=== PATIENT | male | born 1960 | race Hispanic/Latino ===

== ENCOUNTER 2019-08-04 12:20 | Inpatient (IN) | payer MEDICARE ==
[2019-08-04] MEDS ORDERED: DEXTROSE 50% IN WATER (25GM) 50 ML SYRINGE IV ONE (12:42)
[2019-08-04] MEDS ORDERED: SODIUM CHLORIDE 0.9% 1000 ML 1,000 ML IV ONE ×3 (12:42→13:56)
[2019-08-04] MEDS ORDERED: LORazepam 2 MG/ML VIAL IV ONE ×2 (12:44→16:00)
--- NOTE | 2019-08-04 12:47 | Emergency Department Report ---
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 Patient brought to the emergency room from [facility] for evaluation of altered mental status decrease p.o. intake for the last 4 days. Facility staff reported that patient stopped eating and drinking since he got to the facility on Friday, 3 days ago. Patient is alert but not answering any questions. Patient with significant dry mucous membrane. Patient also found to be tachycardic but afebrile. I spoke to patient Ms. Radha Desouza. Her number is [phone]. She informed me that her has been diagnosed with schizoaffective disorder and he has been very depressed recently. She told me that he followed by Dr. Ordaz, psychiatrist. Her number is [phone]. She stated that he is allergic to Haldol and its family because it is because him to have malignant neuroleptic syndrome. She told me that he almost last time when they gave him this medication. She told me that he is on Trileptal and Abilify. She requested the patient to be transferred to [facility] after he is medically clear. - Related Data Allergies Allergy/AdvReac Type Severity Reaction Status Date / Time haloperidol [From Haldol] Allergy Unknown Verified 08/04/19 14:27 ED Review of Systems ROS: Stated complaint: AMS Other details as noted in HPI Comment: Unobtainable due to pts medical conditions ED Physical Exam - General General appearance: alert, in no apparent distress, anxious - Head Head exam: Present: atraumatic, normocephalic, normal inspection - Eye Eye exam: Present: normal appearance - ENT ENT exam: Present: mucous membranes dry - Neck Neck exam: Present: normal inspection, full ROM. Absent: tenderness, meningismus, lymphadenopathy, thyromegaly - Respiratory Respiratory exam: Present: normal lung sounds bilaterally - Cardiovascular Cardiovascular Exam: Present: tachycardia - GI/Abdominal GI/Abdominal exam: Present: soft, normal bowel sounds. Absent: distended, tenderness, guarding, rebound, rigid, organomegaly, mass, bruit, pulsatile mass, hernia - Extremities Exam Extremities exam: Present: normal inspection, full ROM, normal capillary refill. Absent: pedal edema, calf tenderness - Back Exam Back exam: Present: normal inspection, full ROM. 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 Patient brought to the emergency room from [facility] for evaluation of altered mental status decrease p.o. intake for the last 4 days. Facility staff reported that patient stopped eating and drinking since he got to the facility on Friday, 3 days ago. Patient is alert but not answering any questions. Patient with significant dry mucous membrane. Patient also found to be tachycardic but afebrile. Patient was really agitated and kept pulling his lines, patient given 2 mg of IV Ativan for sedation. Two IV lines inserted and patient started on normal saline and D5 normal saline. Patient found to have a blood glucose of 50, patient given dextrose 50 once. Labs reviewed and showed hyponatremia, hyperchloremia, elevated BUN, elevated lactic acid and significantly high CK of more than 9000. Chest x-ray is unremarkable. I discussed the patient with Dr. Harvey, he agreed to admit the patient to medical service for further management. Critical Care Time: Yes Critical care time in (mins) excluding proc time.: 30 Critical care attestation.: If time is entered above; I have spent that time in minutes in the direct care of this critically ill patient, excluding procedure time. ED Disposition Clinical Impression: Altered mental status, Hypoglycemia, Rhabdomyolysis, Hypernatremia, Schizoaffective disorder Disposition: OP ADMIT IP TO THIS HOSP Is pt being admited?: Yes Condition: Stable Referrals: PRIMARY CARE, [Primary Care Provider] - 3-5 Days
[2019-08-04 13:19] LABS: Basophils # (Auto) 0.1 K/mm3 (0.0-0.1); Basophils % (Auto) 0.5 % (0.0-1.8); Hematocrit 48.6 % (35.5-45.6); Hemoglobin 16.3 gm/dl (11.8-15.2); Lymphocytes # (Auto) 0.8 K/mm3 (1.2-5.4); Lymphocytes % (Auto) 5.4 % (13.4-35.0); Mean Corpuscular HGB Conc 34 % (32-34); Mean Corpuscular Volume 89 fl (84-94); Monocytes # (Auto) 1.3 K/mm3 (0.0-0.8); Monocytes % (Auto) 8.3 % (0.0-7.3); Platelet Count 315 K/mm3 (140-440); Red Blood Count 5.43 M/mm3 (3.65-5.03); Red Cell Distribution Width 14.2 % (13.2-15.2)
[2019-08-04 13:28] LABS: INR 1.14 (0.87-1.13)
[2019-08-04 13:29] LABS: Partial Thromboplastin Time 24.9 Sec. (24.2-36.6)
--- NOTE | 2019-08-04 13:38 | XRay Report ---
CHEST 1 VIEW 08/04/2019 1:15 PM INDICATION / CLINICAL INFORMATION: Altered Mental Status. COMPARISON: None available. FINDINGS: SUPPORT DEVICES: None. HEART / MEDIASTINUM: No significant abnormality. LUNGS / PLEURA: No significant pulmonary or pleural abnormality. No pneumothorax. ADDITIONAL FINDINGS: No significant additional findings. IMPRESSION: 1. No acute abnormality of the chest. Signer Name: Efrain Root MD Signed: 08/04/2019 1:33 PM Workstation Name: [id number]
[2019-08-04 13:51] LABS: Alanine Aminotransferase 321 units/L (7-56); Albumin 4.3 g/dL (3.9-5); BUN/Creatinine Ratio 40; Bilirubin,Direct 1.3 mg/dL (0-0.2); Blood Urea Nitrogen 52 mg/dL (9-20); Calcium 9.7 mg/dL (8.4-10.2); Hemolysis Index 14
[2019-08-04] MEDS ORDERED: LORazepam 2 MG/ML VIAL ONE (16:07)
[2019-08-04 16:12] LABS: Bacteria,Urine 1+ /HPF (Negative); Bilirubin,Urine NEG (Negative); Blood,Urine LG (Negative); Color,Urine Amber (Yellow); Mucus,Urine FEW /HPF
[2019-08-04 16:17] LABS: Amphetamine Screen,Urine PRESUMPTIVE NEGATIVE; Benzodiazepines Screen,Urine PRESUMPTIVE NEGATIVE; Cocaine Screen,Urine PRESUMPTIVE NEGATIVE; Methadone Screen,Urine PRESUMPTIVE NEGATIVE; Opiate Screen,Urine PRESUMPTIVE NEGATIVE
[2019-08-04 16:35] LABS: Cannabinoid Screen,Urine PRESUMPTIVE NEGATIVE
--- NOTE | 2019-08-04 16:42 | Cat Scan Report ---
CT BRAIN: 08/04/2019 INDICATION / CLINICAL INFORMATION: MAIN: Altered Mental Status Best images possible . COMPARISON: None available. FINDINGS: BRAIN/INTRACRANIAL STRUCTURES: Unenhanced CT images of the brain demonstrate no evidence of acute int racranial abnormality. Ventricles and sulci are within normal limits of size and shape for a patient of this age. There is no evidence of acute ischemic injury, hemorrhage, or mass. There are no abnormal extra-axial fluid collections. EXTRACRANIAL STRUCTURES: Unremarkable. IMPRESSION: No acute abnormality. All CT scans at this location are performed using dose reduction to ALARA by means of automated expos ure control. Signer Name: Presley Anderson MD Signed: 08/04/2019 4:38 PM Workstation Name: [id number]
[2019-08-04] MEDS ORDERED: SODIUM CHLORIDE 0.9% 1000 ML 1,000 ML ONE (18:37)
[2019-08-04] MEDS: D5W/0.9% NACL 1,000 ML IV SCH (20:55)
--- NOTE | 2019-08-04 23:27 | History and Physical Report ---
History of Present Illness Date of examination: 08/04/19 Date of admission: 08/04/19 15:00 Chief complaint: Decreased PO intake for 4 days Altered mental service History of present illness: 58 years old male with history of schizophrenia -- catatonic type brought to the emergency room from [facility] for evaluation of altered mental status decrease p.o. intake for the last 4 days. Facility staff reported that patient stopped eating and drinking since he got to the facility on Friday, 3 days ago. Patient is alert but not answering any questions. Patient with significant dry mucous membrane. Patient also found to be tachycardic but afeb rile. Ms. Radha Desouza -- Her number is [phone]---rrpa patient has been diagnosed with schizoaffective disorder and he has been very depressed recently. Apparently he is allergic to Haldol and causes malignant neuroleptic syndrome. She told me that he almost last time when they gave him this medication. She told me that he is on Trileptal and Abilify. She requested the patient to be transferred to [facility] after he is medically clear. Past History Past Medical History: hypertension, other (Schizoaffective disorder and Catatonia) Past Surgical History: No surgical history Social history: lives with family, full code Family history: hypertension Medications and Allergies Allergies Allergy/AdvReac Type Severity Reaction Status Date / Time haloperidol [From Haldol] Allergy Unknown Verified 08/04/19 14:27 Home Medications Medication Instructions Recorded Confirmed Last Taken Type Acetaminophen [Tylenol] 325 mg PO Q4HR PRN 08/04/19 08/04/19 Unknown History Amlodipine Besylate [Norvasc] 5 mg PO DAILY 08/04/19 08/04/19 Unknown History Antacid [Alum-Mag Hydrox-Simeth 30 ml PO Q8H PRN 08/04/19 08/04/19 Unknown History [id number]/5Ml] Benztropine [Cogentin] 1 tab PO DAILY 08/04/19 08/04/19 Unknown History Divalproex [Naedem THOMPSON] 1,000 mg PO HS 08/04/19 08/04/19 Unknown History Magnesium Hydroxide [Milk of 30 ml PO Q8H PRN 08/04/19 08/05/19 Unknown History Magnesia] OLANZapine [Zyprexa] 15 mg PO HS 08/04/19 08/05/19 Unknown History OLANzapine [ZyPREXA] 5 mg PO QDAY 08/04/19 08/05/19 Unknown History OXcarbazepine [Trileptal] 300 mg PO BID 08/04/19 08/04/19 Unknown History Ziprasidone Mesylate [Geodon] 20 mg IM Q12H PRN 08/04/19 08/04/19 Unknown History Zyprexa 5 mg IM BID PRN 08/04/19 08/05/19 Unknown History diphenhydrAMINE [Benadryl CAP] 50 mg PO Q4HR PRN 08/04/19 08/04/19 Unknown History diphenhydrAMINE [Benadryl] 50 mg IV ONCE PRN 08/04/19 08/04/19 Unknown History fluPHENAZine HCl [Prolixin HCl] 5 mg IM Q4H PRN 08/04/19 08/04/19 Unknown History fluPHENAZine HCl [Prolixin] 5 mg PO Q4HR PRN 08/04/19 08/04/19 Unknown History traZODone [Desyrel] 100 mg PO QHS 08/04/19 08/04/19 Unknown History Active Meds: Active Medications Dextrose/Sodium Chloride (D5ns) 1,000 mls @ 150 mls/hr IV DIRECT EVELIA Last Admin: 08/04/19 20:55 Dose: 150 mls/hr Documented by: Review of Systems All systems: negative Exam - Constitutional Vitals: Temp Pulse Resp BP Pulse Ox 98.8 F 113 H 22 161/68 98 08/04/19 17:45 08/04/19 18:16 08/04/19 18:16 08/04/19 18:16 08/04/19 18:16 General appearance: Present: no acute distress, well-nourished - EENT Eyes: Present: PERRL ENT: hearing intact, clear oral mucosa, other (Dry mucous membranes) - Neck Neck: Present: supple, normal ROM - Respiratory Respiratory effort: normal Respiratory: bilateral: CTA - Cardiovascular Heart rate: 78 Rhythm: regular Heart Sounds: Present: S1 & S2. Absent: rub, click - Extremities Extremities: no ischemia, pulses intact, pulses symmetrical, No edema Peripheral Pulses: within normal limits - Abdominal General gastrointestinal: Present: soft, non-tender, non-distended, normal bowel sounds Male genitourinary: Present: normal - Integumentary Integumentary: Present: clear, warm, dry - Musculoskeletal Musculoskeletal: strength equal bilaterally, generalized weakness - Psychiatric Psychiatric: depressed, other (Lethargic,Catatonic) - Neurologic Neurologic: CNII-XII intact, moves all extremities - Allied Health Allied health notes reviewed: nursing, social work, case management Results - Labs CBC & Chem 7: 08/05/19 03:33 08/05/19 03:33 Labs: Laboratory Last Values WBC 15.2 K/mm3 (4.5-11.0) H 08/04/19 13:03 RBC 5.43 M/mm3 (3.65-5.03) H 08/04/19 13:03 Hgb 16.3 gm/dl (11.8-15.2) H 08/04/19 13:03 Hct 48.6 % (35.5-45.6) H 08/04/19 13:03 MCV 89 fl (84-94) 08/04/19 13:03 MCH 30 pg (28-32) 08/04/19 13:03 MCHC 34 % (32-34) 08/04/19 13:03 RDW 14.2 % (13.2-15.2) 08/04/19 13:03 Plt Count 315 K/mm3 (140-440) 08/04/19 13:03 Lymph % (Auto) 5.4 % (13.4-35.0) L 08/04/19 13:03 [place] % (Auto) 8.3 % (0.0-7.3) H 08/04/19 13:03 Eos % (Auto) 0.0 % (0.0-4.3) 08/04/19 13:03 Baso % (Auto) 0.5 % (0.0-1.8) 08/04/19 13:03 Lymph # 0.8 K/mm3 (1.2-5.4) L 08/04/19 13:03 [place] # 1.3 K/mm3 (0.0-0.8) H 08/04/19 13:03 Eos # 0.0 K/mm3 (0.0-0.4) 08/04/19 13:03 Baso # 0.1 K/mm3 (0.0-0.1) 08/04/19 13:03 Seg Neutrophils % 85.8 % (40.0-70.0) H 08/04/19 13:03 Seg Neutrophils # 13.0 K/mm3 (1.8-7.7) H 08/04/19 13:03 PT 14.7 Sec. (12.2-14.9) 08/04/19 13:03 INR 1.14 (0.87-1.13) H 08/04/19 13:03 APTT 24.9 Sec. (24.2-36.6) 08/04/19 13:03 Sodium 151 mmol/L (137-145) H 08/04/19 13:03 Potassium 4.7 mmol/L (3.6-5.0) 08/04/19 13:03 Chloride 110.2 mmol/L (98-107) H 08/04/19 13:03 Carbon Dioxide 22 mmol/L (22-30) 08/04/19 13:03 Anion Gap 24 mmol/L 08/04/19 13:03 BUN 52 mg/dL (9-20) H 08/04/19 13:03 Creatinine 1.3 mg/dL (0.8-1.5) 08/04/19 13:03 Estimated GFR 57 ml/min 08/04/19 13:03 BUN/Creatinine Ratio 40 % 08/04/19 13:03 Glucose 112 mg/dL (75-100) H 08/04/19 13:03 POC Glucose 58 (70-105) L 08/04/19 12:42 Lactic Acid 1.70 mmol/L (0.7-2.0) 08/04/19 15:46 Calcium 9.7 mg/dL (8.4-10.2) 08/04/19 13:03 Total Bilirubin 2.40 mg/dL (0.1-1.2) H 08/04/19 13:03 Direct Bilirubin 1.3 mg/dL (0-0.2) H 08/04/19 13:03 Indirect Bilirubin 1.1 mg/dL 08/04/19 13:03 AST 307 units/L (5-40) H 08/04/19 13:03 ALT 321 units/L (7-56) H 08/04/19 13:03 Alkaline Phosphatase 104 units/L (35-129) 08/04/19 13:03 Ammonia 44.0 umol/L (25-60) 08/04/19 13:03 Total Creatine Kinase 9068 units/L (55-170) H 08/04/19 13:03 Troponin T < 0.010 ng/mL (0.00-0.029) 08/04/19 13:03 Troponin T < 0.010 ng/mL (0.00-0.029) 08/04/19 13:03 Total Protein 7.2 g/dL (6.3-8.2) 08/04/19 13:03 Albumin 4.3 g/dL (3.9-5) 08/04/19 13:03 Albumin/Globulin Ratio 1.5 % 08/04/19 13:03 TSH 1.630 mlU/mL (0.270-4.200) 08/04/19 13:03 Urine Color Jewels (Yellow) 08/04/19 15:43 Urine Turbidity Clear (Clear) 08/04/19 15:43 Urine pH 5.0 (5.0-7.0) 08/04/19 15:43 Ur Specific [place] 1.025 (1.003-1.030) 08/04/19 15:43 Urine Protein 30 mg/dl mg/dL (Negative) 08/04/19 15:43 Urine Glucose (UA) 50 mg/dL (Negative) 08/04/19 15:43 Urine Ketones 20 mg/dL (Negative) 08/04/19 15:43 Urine Blood Lg (Negative) 08/04/19 15:43 Urine Nitrite Neg (Negative) 08/04/19 15:43 Urine Bilirubin Neg (Negative) 08/04/19 15:43 Urine Urobilinogen 4.0 mg/dL (<2.0) 08/04/19 15:43 Ur Leukocyte Esterase Neg (Negative) 08/04/19 15:43 Urine WBC (Auto) 1.0 /HPF (0.0-6.0) 08/04/19 15:43 Urine RBC (Auto) 2.0 /HPF (0.0-6.0) 08/04/19 15:43 U Epithel Cells (Auto) < 1.0 /HPF (0-13.0) 08/04/19 15:43 Urine Bacteria (Auto) 1+ /HPF (Negative) 08/04/19 15:43 Urine Mucus Few /HPF 08/04/19 15:43 Salicylates < 0.3 mg/dL (2.8-20.0) L 08/04/19 13:03 Urine Opiates Screen Presumptive negative 08/04/19 15:43 Urine Methadone Screen Presumptive negative 08/04/19 15:43 Acetaminophen < 5.0 ug/mL (10.0-30.0) L 08/04/19 13:03 Ur Barbiturates Screen Presumptive negative 08/04/19 15:43 Ur Phencyclidine Scrn Presumptive negative 08/04/19 15:43 Ur Amphetamines Screen Presumptive negative 08/04/19 15:43 U Benzodiazepines Scrn Presumptive negative 08/04/19 15:43 Urine Cocaine Screen Presumptive negative 08/04/19 15:43 U Marijuana (THC) Screen Presumptive negative 08/04/19 15:43 Drugs of Abuse Note Disclamer 08/04/19 15:43 Short CBC 08/04/19 Range/Units 13:03 WBC 15.2 H (4.5-11.0) K/mm3 Hgb 16.3 H (11.8-15.2) gm/dl Hct 48.6 H (35.5-45.6) % Plt Count 315 (140-440) K/mm3 BMP 08/04/19 13:03 Sodium 151 H Potassium 4.7 Chloride 110.2 H Carbon Dioxide 22 BUN 52 H Creatinine 1.3 Glucose 112 H Calcium 9.7 Cardiac Enzymes 08/04/19 08/04/19 Range/Units 13:03 13:03 Total Creatine Kinase 9068 H (55-170) units/L Troponin T < 0.010 < 0.010 (0.00-0.029) ng/mL Liver Function 08/04/19 Range/Units 13:03 Total Bilirubin 2.40 H (0.1-1.2) mg/dL Direct Bilirubin 1.3 H (0-0.2) mg/dL AST 307 H (5-40) units/L ALT 321 H (7-56) units/L Alkaline Phosphatase 104 (35-129) units/L Albumin 4.3 (3.9-5) g/dL Urine 08/04/19 Range/Units 15:43 Urine Color Jewels (Yellow) Urine pH 5.0 (5.0-7.0) Ur Specific [place] 1.025 (1.003-1.030) Urine Protein 30 mg/dl (Negative) mg/dL Urine Glucose (UA) 50 (Negative) mg/dL Short CBC 08/04/19 08/05/19 Range/Units 13:03 03:33 WBC 15.2 H 8.3 (4.5-11.0) K/mm3 Hgb 16.3 H 14.4 (11.8-15.2) gm/dl Hct 48.6 H 42.8 (35.5-45.6) % Plt Count 315 247 (140-440) K/mm3 BMP 08/04/19 08/05/19 13:03 03:33 Sodium 151 H 155 H Potassium 4.7 4.4 Chloride 110.2 H 121.3 H Carbon Dioxide 22 23 BUN 52 H 38 H Creatinine 1.3 1.2 Glucose 112 H 128 H Calcium 9.7 8.4 Cardiac Enzymes 08/04/19 08/04/19 Range/Units 13:03 13:03 Total Creatine Kinase 9068 H (55-170) units/L Troponin T < 0.010 < 0.010 (0.00-0.029) ng/mL Liver Function 08/04/19 08/05/19 Range/Units 13:03 03:33 Total Bilirubin 2.40 H 1.60 H (0.1-1.2) mg/dL Direct Bilirubin 1.3 H (0-0.2) mg/dL AST 307 H 179 H (5-40) units/L ALT 321 H 232 H (7-56) units/L Alkaline Phosphatase 104 78 (35-129) units/L Albumin 4.3 3.1 L (3.9-5) g/dL Urine 08/04/19 Range/Units 15:43 Urine Color Jewels (Yellow) Urine pH 5.0 (5.0-7.0) Ur Specific [place] 1.025 (1.003-1.030) Urine Protein 30 mg/dl (Negative) mg/dL Urine Glucose (UA) 50 (Negative) mg/dL - Imaging and Cardiology EKG: report reviewed (A fib/flutter) Chest x-ray: report reviewed (NAF) CT scan - chest: report reviewed (NAF) Arana/IV: IV Catheter Type [Left INT / Saline Lock Antecubital] IV Catheter Type [Right INT / Saline Lock Antecubital] Assessment and Plan Advance Directives: Yes Plan of care discussed with patient/family: Yes - Patient Problems (1) Encephalopathy acute Current Visit: Yes Status: Acute Plan to address problem: Sec to dehydration and Hypernatremia IV fluids for now Psych consult (2) Hypernatremia Current Visit: Yes Status: Acute Plan to address problem: Half normal saline /D5w (3) Rhabdomyolysis Current Visit: Yes Status: Acute Qualifiers: Rhabdomyolysis type: non-traumatic Qualified Code(s): M62.82 - Rhabdomyolysis Plan to address problem: IV FLuids (4) HTN (hypertension) Current Visit: Yes Status: Chronic Qualifiers: Hypertension type: essential hypertension Qualified Code(s): I10 - Essential (primary) hypertension Plan to address problem: Cont antihypertensives (5) Schizoaffective disorder Current Visit: Yes Status: Chronic Qualifiers: Schizoaffective disorder type: depressive Qualified Code(s): F25.1 - Schizoaffective disorder, depressive type Plan to address problem: Cont Ablify (6) Transaminitis Current Visit: Yes Status: Acute Plan to address problem: Check Hepatitis profile Drug induced?? GB ultrasound (7) DVT prophylaxis Current Visit: Yes Status: Acute Plan to address problem: On Heparin and GI prophylaxis
[2019-08-04] MEDS ORDERED: ALUM-MAG HYDROXIDE-SIMETHICONE 200-200-20MG/5ML ORAL LIQD 30 ML PO PRN (23:32)
[2019-08-04] MEDS ORDERED: FLUPHENAZINE HCL 2.5 MG/ML IM PRN (23:32)
[2019-08-04] MEDS ORDERED: diphenhydrAMINE 50 MG/ML VIAL IV PRN (23:32)
[2019-08-04] MEDS ORDERED: MAGNESIUM HYDROXIDE (MOM) ORAL LIQD UDC PO PRN (23:32)
[2019-08-04] MEDS ORDERED: ACETAMINOPHEN 325 MG TAB PO PRN (23:41)
[2019-08-04] MEDS ORDERED: ONDANSETRON 4 MG/2 ML INJ IV PRN (23:41)
[2019-08-04] MEDS ORDERED: oxyCODONE /ACETAMINOPHEN 5-325MG TAB PO PRN (23:41)
[2019-08-04] MEDS ORDERED: HYDROmorphone 1 MG/1 ML INJ IV PRN (23:41)
[2019-08-05] MEDS: FAMOTIDINE 20 MG/2 ML INJ IV SCH ×3 (00:16→21:45)
[2019-08-05] MEDS: OXcarbazepine 300 MG TAB PO SCH ×3 (00:17→21:45)
[2019-08-05] MEDS: D5W/0.9% NACL 1,000 ML IV SCH ×4 (02:37→17:04)
[2019-08-05 04:34] LABS: Basophils % (Auto) 0.3 % (0.0-1.8); Hematocrit 42.8 % (35.5-45.6); Hemoglobin 14.4 gm/dl (11.8-15.2); Lymphocytes # (Auto) 0.9 K/mm3 (1.2-5.4); Lymphocytes % (Auto) 10.8 % (13.4-35.0); Mean Corpuscular HGB Conc 34 % (32-34); Mean Corpuscular Volume 89 fl (84-94); Monocytes # (Auto) 0.8 K/mm3 (0.0-0.8); Monocytes % (Auto) 9.3 % (0.0-7.3); Platelet Count 247 K/mm3 (140-440); Red Blood Count 4.81 M/mm3 (3.65-5.03); Red Cell Distribution Width 13.8 % (13.2-15.2)
[2019-08-05 04:46] LABS: Alanine Aminotransferase 232 units/L (7-56); Albumin 3.1 g/dL (3.9-5); BUN/Creatinine Ratio 32; Blood Urea Nitrogen 38 mg/dL (9-20); Calcium 8.4 mg/dL (8.4-10.2); Hemolysis Index 18
[2019-08-05] MEDS: amLODIPine 5 MG TAB PO SCH (09:46)
[2019-08-05] MEDS: BENZTROPINE 1 MG TAB PO SCH (09:48)
--- NOTE | 2019-08-05 12:05 | Consultation ---
History of Present Illness Consult date: 08/05/19 Consult reason: atrial fibrillation History of present illness: This is a 58-year old male who was transferred from [facility] with altered mental status. The patient is alert but is not communicating. There were no report of chest pain, unusual shortness of breath or palpitations. A cardiac consultation has been requested for abnormal ECG. An ECG done in the emergency department is read erroneous as atrial fibrillation by the computer. His ECG on manual review is normal sinus rhythm. There is no evidence of atrial fibrillation. Past History Past Medical History: hypertension, other (Schizoaffective disorder) Social history: lives with family, full code Family history: hypertension Medications and Allergies Allergies Allergy/AdvReac Type Severity Reaction Status Date / Time haloperidol [From Haldol] Allergy Unknown Verified 08/04/19 14:27 Home Medications Medication Instructions Recorded Confirmed Last Taken Type Acetaminophen [Tylenol] 325 mg PO Q4HR PRN 08/04/19 08/04/19 Unknown History Amlodipine Besylate [Norvasc] 5 mg PO DAILY 08/04/19 08/04/19 Unknown History Antacid [Alum-Mag Hydrox-Simeth 30 ml PO Q8H PRN 08/04/19 08/04/19 Unknown History [id number]/5Ml] Benztropine [Cogentin] 1 tab PO DAILY 08/04/19 08/04/19 Unknown History Divalproex [DepRodger THOMPSON] 1,000 mg PO HS 08/04/19 08/04/19 Unknown History Magnesium Hydroxide [Milk of 30 ml PO Q8H PRN 08/04/19 08/05/19 Unknown History Magnesia] OLANZapine [Zyprexa] 15 mg PO HS 08/04/19 08/05/19 Unknown History OLANzapine [ZyPREXA] 5 mg PO QDAY 08/04/19 08/05/19 Unknown History OXcarbazepine [Trileptal] 300 mg PO BID 08/04/19 08/04/19 Unknown History Ziprasidone Mesylate [Geodon] 20 mg IM Q12H PRN 08/04/19 08/04/19 Unknown History Zyprexa 5 mg IM BID PRN 08/04/19 08/05/19 Unknown History diphenhydrAMINE [Benadryl CAP] 50 mg PO Q4HR PRN 08/04/19 08/04/19 Unknown History diphenhydrAMINE [Benadryl] 50 mg IV ONCE PRN 08/04/19 08/04/19 Unknown History fluPHENAZine HCl [Prolixin HCl] 5 mg IM Q4H PRN 08/04/19 08/04/19 Unknown History fluPHENAZine HCl [Prolixin] 5 mg PO Q4HR PRN 08/04/19 08/04/19 Unknown History traZODone [Desyrel] 100 mg PO QHS 08/04/19 08/04/19 Unknown History Active Meds: Active Medications Acetaminophen (Tylenol) 650 mg PO Q4H PRN PRN Reason: Pain MILD(1-3)/Fever >100.5/ZAVALA Last Admin: 08/05/19 00:17 Dose: 650 mg Documented by: Al Hydrox/Mg Hydrox/Simethicone (Alum-Mag Hydrox-Simeth [phone]/5ml) 30 ml PO Q8H PRN PRN Reason: Indigestion Amlodipine Besylate (Amlodipine) 5 mg PO DAILY [facility] Last Admin: 08/05/19 09:46 Dose: 5 mg Documented by: Benztropine Mesylate (Cogentin) 1 mg PO DAILY [facility] Last Admin: 08/05/19 09:48 Dose: 1 mg Documented by: Diphenhydramine HCl (Benadryl) 50 mg IV ONCE PRN PRN Reason: severe eps or prevention Divalproex Sodium (Depakote Dr) 1,000 mg PO [facility] Famotidine (Pepcid) 10 mg IV BID [facility] Last Admin: 08/05/19 09:45 Dose: 10 mg Documented by: Fluphenazine HCl (Prolixin Hcl) 5 mg PO Q4H PRN PRN Reason: Agitation Last Admin: 08/05/19 09:45 Dose: 5 mg Documented by: Fluphenazine HCl (Prolixin Hcl) 5 mg IM Q4H PRN PRN Reason: Agitation Hydromorphone HCl (Dilaudid) 0.5 mg IV Q3H PRN PRN Reason: Pain , Severe (7-10) Dextrose/Sodium Chloride (D5ns) 1,000 mls @ 150 mls/hr IV DIRECT [facility] Last Admin: 08/05/19 09:44 Dose: 150 mls/hr Documented by: Sodium Chloride (Nacl 0.45% 1000 Ml) 1,000 mls @ 125 mls/hr IV DIRECT [facility] Magnesium Hydroxide (Milk Of Magnesia) 30 ml PO Q12H PRN PRN Reason: Constipation Olanzapine (Zyprexa) 5 mg PO QDAY [facility] Last Admin: 08/05/19 09:47 Dose: 5 mg Documented by: Olanzapine (Zyprexa) 15 mg PO QHS [facility] Last Admin: 08/05/19 00:53 Dose: 15 mg Documented by: Ondansetron HCl (Zofran) 4 mg IV Q8H PRN PRN Reason: Nausea And Vomiting Oxcarbazepine (Trileptal) 300 mg PO BID [facility] Last Admin: 08/05/19 09:46 Dose: 300 mg Documented by: Oxycodone/Acetaminophen (Percocet 5/325) 1 tab PO Q6H PRN PRN Reason: Pain, Moderate (4-6) Sodium Chloride (Sodium Chloride Flush Syringe 10 Ml) 10 ml IV BID [facility] Last Admin: 08/05/19 09:47 Dose: 10 ml Documented by: Sodium Chloride (Sodium Chloride Flush Syringe 10 Ml) 10 ml IV PRN PRN PRN Reason: LINE FLUSH Trazodone HCl (Desyrel) 100 mg PO QHS [facility] Ziprasidone (Geodon) 20 mg IM Q12H PRN PRN Reason: Agitation Physical Examination Vital Signs Temp Pulse Resp BP Pulse Ox 98.2 F 111 H 18 187/114 100 08/04/19 13:04 08/04/19 13:04 08/04/19 13:04 08/04/19 13:04 08/04/19 13:04 General appearance: no acute distress Cardiac: Positive: Reg Rate and Rhythm Results 08/05/19 03:33 08/05/19 03:33 Cardiac Enzymes 08/04/19 08/05/19 Range/Units 13:03 03:33 AST 307 H 179 H (5-40) units/L Coagulation 08/04/19 Range/Units 13:03 PT 14.7 (12.2-14.9) Sec. INR 1.14 H (0.87-1.13) APTT 24.9 (24.2-36.6) Sec. CBC 08/04/19 08/05/19 Range/Units 13:03 03:33 WBC 15.2 H 8.3 (4.5-11.0) K/mm3 RBC 5.43 H 4.81 (3.65-5.03) M/mm3 Hgb 16.3 H 14.4 (11.8-15.2) gm/dl Hct 48.6 H 42.8 (35.5-45.6) % Plt Count 315 247 (140-440) K/mm3 Lymph # 0.8 L 0.9 L (1.2-5.4) K/mm3 [place] # 1.3 H 0.8 (0.0-0.8) K/mm3 Eos # 0.0 0.0 (0.0-0.4) K/mm3 Baso # 0.1 0.0 (0.0-0.1) K/mm3 Comprehensive Metabolic Panel 08/04/19 08/05/19 Range/Units 13:03 03:33 Sodium 151 H 155 H (137-145) mmol/L Potassium 4.7 4.4 (3.6-5.0) mmol/L Chloride 110.2 H 121.3 H (98-107) mmol/L Carbon Dioxide 22 23 (22-30) mmol/L BUN 52 H 38 H (9-20) mg/dL Creatinine 1.3 1.2 (0.8-1.5) mg/dL Glucose 112 H 128 H (75-100) mg/dL Calcium 9.7 8.4 (8.4-10.2) mg/dL Direct Bilirubin 1.3 H (0-0.2) mg/dL Indirect Bilirubin 1.1 mg/dL AST 307 H 179 H (5-40) units/L ALT 321 H 232 H (7-56) units/L Alkaline Phosphatase 104 78 (35-129) units/L Total Protein 7.2 5.7 L D (6.3-8.2) g/dL Albumin 4.3 3.1 L (3.9-5) g/dL Assessment and Plan Altered mental status Fever Schizoaffective disorder There is no evidence of atrial fibrillation. An ECG done in the emergency department is read erroneous as atrial fibrillation by the computer. His ECG on manual review is normal sinus rhythm. Therefore we will sign off.
[2019-08-05] MEDS ORDERED: LORazepam 2 MG/ML VIAL IM STA (12:22)
--- NOTE | 2019-08-05 12:23 | Consultation ---
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 Patient brought to the emergency room from [facility] for evaluation of altered mental status decrease p.o. intake for the last 4 days. Facility staff reported that patient stopped eating and drinking since he got to the facility on Friday, 3 days ago. Patient is alert but not answering any questions. Patient with significant dry mucous membrane. Patient also found to be tachycardic but afebrile. I spoke to patient Ms. Radha Desouza. Her number is [phone]. She informed me that her has been diagnosed with schizoaffective disorder and he has been very depressed recently. She told me that he followed by Dr. Ordaz, psychiatrist. Her number is [phone]. She stated that he is allergic to Haldol and its family because it is because him to have malignant neuroleptic syndrome. She told me that he almost last time when they gave him this medication. She told me that he is on Trileptal and Abilify. She requested the patient to be transferred to [facility] after he is medically clear. Psych HPI Patient responded when asked his name, he said "my name is len" but refused to respond to further questioning. Patient later began to cry. PAST PSYCHIATRIC HISTORY: Diagnoses: Schizophrenia Suicide attempts or Self-harm behavior: Not assessable Prior psychiatric hospitalizations: yes Substance Abuse history: Not assessable Previous psychiatric medications tried: Trileptal and abilify Outpatient treatment: Not assessable PAST MEDICAL HISTORY: Not assessable Family Psychiatric History None reported or documented SOCIAL HISTORY Marital Status: (based off notes) Living Arrangements: With Employment Status: Unknown Access to guns/weapons: Not assessable Education: Not assessable History of Abuse: Not assessable Legal History: Not assessable REVIEW OF SYSTEMS ROS cannot be reliably obtained from the patient due to mental status MENTAL STATUS EXAMINATION General Appearance and Behavior: Age appropriate, good hygiene, wearing appropriate clothes, lying in bed, /poor eye contact Cooperation:Withdrawn, Isolative Psychomotor Behavior:unremarkable and within normal limits Mood: Not assessable Affect and affective range: flat Thought Process: Not assessable Thought Content: Not assessable Speech: Not assessable Intellectual Functioning: Not assessable Suicidal Ideation: Not assessable Homicidal Ideation: Not assessable Impulse Control: Not assessable Insight and Judgment: Not assessable Memory: Not assessable Attention: Divided attention intact and Divided attention impaired Orientation: Alert Assessment and Plan - Psychiatric problem (1) Schizophrenia with prominent negative symptoms Current Visit: Yes Status: Acute (2) Selective mutism Current Visit: Yes Status: Acute Plan Abilify 15 mg Qday, stop olazanpine. Lorazepam IM 2mg Sitter: deffer to primary Medical: Per primary Disposition: Acute inpatient psychiatric hospitalization recommended when medically cleared. FOLLOW UP: Will Follow The treatment plan, including medication benefits and side effects were discussed with the patient's sister. She verbalized understanding and agreement. Please call with any questions or concerns. Thank you for this consult. Medications and Allergies Allergies Allergy/AdvReac Type Severity Reaction Status Date / Time haloperidol [From Haldol] Allergy Unknown Verified 08/04/19 14:27 Home Medications Medication Instructions Recorded Confirmed Last Taken Type Acetaminophen [Tylenol] 325 mg PO Q4HR PRN 08/04/19 08/04/19 Unknown History Amlodipine Besylate [Norvasc] 5 mg PO DAILY 08/04/19 08/04/19 Unknown History Antacid [Alum-Mag Hydrox-Simeth 30 ml PO Q8H PRN 08/04/19 08/04/19 Unknown History [id number]/5Ml] Benztropine [Cogentin] 1 tab PO DAILY 08/04/19 08/04/19 Unknown History Divalproex [Nadeem THOMPSON] 1,000 mg PO HS 08/04/19 08/04/19 Unknown History Magnesium Hydroxide [Milk of 30 ml PO Q8H PRN 08/04/19 08/05/19 Unknown History Magnesia] OLANZapine [Zyprexa] 15 mg PO HS 08/04/19 08/05/19 Unknown History OLANzapine [ZyPREXA] 5 mg PO QDAY 08/04/19 08/05/19 Unknown History OXcarbazepine [Trileptal] 300 mg PO BID 08/04/19 08/04/19 Unknown History Ziprasidone Mesylate [Geodon] 20 mg IM Q12H PRN 08/04/19 08/04/19 Unknown History Zyprexa 5 mg IM BID PRN 08/04/19 08/05/19 Unknown History diphenhydrAMINE [Benadryl CAP] 50 mg PO Q4HR PRN 08/04/19 08/04/19 Unknown History diphenhydrAMINE [Benadryl] 50 mg IV ONCE PRN 08/04/19 08/04/19 Unknown History fluPHENAZine HCl [Prolixin HCl] 5 mg IM Q4H PRN 08/04/19 08/04/19 Unknown History fluPHENAZine HCl [Prolixin] 5 mg PO Q4HR PRN 08/04/19 08/04/19 Unknown History traZODone [Desyrel] 100 mg PO QHS 08/04/19 08/04/19 Unknown History Active Meds: Active Medications Acetaminophen (Tylenol) 650 mg PO Q4H PRN PRN Reason: Pain MILD(1-3)/Fever >100.5/ZAVALA Last Admin: 08/05/19 00:17 Dose: 650 mg Documented by: Al Hydrox/Mg Hydrox/Simethicone (Alum-Mag Hydrox-Simeth [id number]/5ml) 30 ml PO Q8H PRN PRN Reason: Indigestion Amlodipine Besylate (Amlodipine) 5 mg PO DAILY [facility] Last Admin: 08/05/19 09:46 Dose: 5 mg Documented by: Benztropine Mesylate (Cogentin) 1 mg PO DAILY [facility] Last Admin: 08/05/19 09:48 Dose: 1 mg Documented by: Diphenhydramine HCl (Benadryl) 50 mg IV ONCE PRN PRN Reason: severe eps or prevention Divalproex Sodium (Depakote Dr) 1,000 mg PO [facility] Famotidine (Pepcid) 10 mg IV BID [facility] Last Admin: 08/05/19 09:45 Dose: 10 mg Documented by: Fluphenazine HCl (Prolixin Hcl) 5 mg PO Q4H PRN PRN Reason: Agitation Last Admin: 08/05/19 09:45 Dose: 5 mg Documented by: Fluphenazine HCl (Prolixin Hcl) 5 mg IM Q4H PRN PRN Reason: Agitation Hydromorphone HCl (Dilaudid) 0.5 mg IV Q3H PRN PRN Reason: Pain , Severe (7-10) Dextrose/Sodium Chloride (D5ns) 1,000 mls @ 150 mls/hr IV DIRECT [facility] Last Admin: 08/05/19 09:44 Dose: 150 mls/hr Documented by: Sodium Chloride (Nacl 0.45% 1000 Ml) 1,000 mls @ 125 mls/hr IV DIRECT [facility] Lorazepam (Ativan) 2 mg IM ONCE STA Stop: 08/05/19 12:23 Magnesium Hydroxide (Milk Of Magnesia) 30 ml PO Q12H PRN PRN Reason: Constipation Olanzapine (Zyprexa) 5 mg PO QDAY [facility] Last Admin: 08/05/19 09:47 Dose: 5 mg Documented by: Olanzapine (Zyprexa) 15 mg PO QHS [facility] Last Admin: 08/05/19 00:53 Dose: 15 mg Documented by: Ondansetron HCl (Zofran) 4 mg IV Q8H PRN PRN Reason: Nausea And Vomiting Oxcarbazepine (Trileptal) 300 mg PO BID [facility] Last Admin: 08/05/19 09:46 Dose: 300 mg Documented by: Oxycodone/Acetaminophen (Percocet 5/325) 1 tab PO Q6H PRN PRN Reason: Pain, Moderate (4-6) Sodium Chloride (Sodium Chloride Flush Syringe 10 Ml) 10 ml IV BID [facility] Last Admin: 08/05/19 09:47 Dose: 10 ml Documented by: Sodium Chloride (Sodium Chloride Flush Syringe 10 Ml) 10 ml IV PRN PRN PRN Reason: LINE FLUSH Trazodone HCl (Desyrel) 100 mg PO QHS [facility] Ziprasidone (Geodon) 20 mg IM Q12H PRN PRN Reason: Agitation Mental Status Exam - Vital signs Last Vital Signs Temp 98.6 F 08/05/19 08:07 Pulse 79 08/05/19 09:46 Resp 20 08/05/19 08:07 BP 128/69 08/05/19 08:07 Pulse Ox 95 08/05/19 08:07 Results Result Diagrams: 08/05/19 03:33 08/05/19 03:33 Abnormal lab results 08/04/19 08/04/19 08/04/19 Range/Units 12:42 13:03 13:03 WBC 15.2 H (4.5-11.0) K/mm3 RBC 5.43 H (3.65-5.03) M/mm3 Hgb 16.3 H (11.8-15.2) gm/dl Hct 48.6 H (35.5-45.6) % Lymph % (Auto) 5.4 L (13.4-35.0) % [place] % (Auto) 8.3 H (0.0-7.3) % Lymph # 0.8 L (1.2-5.4) K/mm3 [place]y # 1.3 H (0.0-0.8) K/mm3 Seg Neutrophils % 85.8 H (40.0-70.0) % Seg Neutrophils # 13.0 H (1.8-7.7) K/mm3 INR (0.87-1.13) Sodium (137-145) mmol/L Chloride (98-107) mmol/L BUN (9-20) mg/dL Glucose (75-100) mg/dL POC Glucose 58 L (70-105) Lactic Acid 2.50 H* (0.7-2.0) mmol/L Total Bilirubin (0.1-1.2) mg/dL Direct Bilirubin (0-0.2) mg/dL AST (5-40) units/L ALT (7-56) units/L Total Creatine Kinase (55-170) units/L Total Protein (6.3-8.2) g/dL Albumin (3.9-5) g/dL Salicylates (2.8-20.0) mg/dL Acetaminophen (10.0-30.0) ug/mL 08/04/19 08/04/19 08/04/19 Range/Units 13:03 13:03 13:03 WBC (4.5-11.0) K/mm3 RBC (3.65-5.03) M/mm3 Hgb (11.8-15.2) gm/dl Hct (35.5-45.6) % Lymph % (Auto) (13.4-35.0) % [place]y % (Auto) (0.0-7.3) % Lymph # (1.2-5.4) K/mm3 Coffey # (0.0-0.8) K/mm3 Seg Neutrophils % (40.0-70.0) % Seg Neutrophils # (1.8-7.7) K/mm3 INR 1.14 H (0.87-1.13) Sodium 151 H (137-145) mmol/L Chloride 110.2 H (98-107) mmol/L BUN 52 H (9-20) mg/dL Glucose 112 H (75-100) mg/dL POC Glucose (70-105) Lactic Acid (0.7-2.0) mmol/L Total Bilirubin 2.40 H (0.1-1.2) mg/dL Direct Bilirubin 1.3 H (0-0.2) mg/dL AST 307 H (5-40) units/L ALT 321 H (7-56) units/L Total Creatine Kinase 9068 H (55-170) units/L Total Protein (6.3-8.2) g/dL Albumin (3.9-5) g/dL Salicylates < 0.3 L (2.8-20.0) mg/dL Acetaminophen (10.0-30.0) ug/mL 08/04/19 08/05/19 08/05/19 Range/Units 13:03 03:33 03:33 WBC (4.5-11.0) K/mm3 RBC (3.65-5.03) M/mm3 Hgb (11.8-15.2) gm/dl Hct (35.5-45.6) % Lymph % (Auto) 10.8 L (13.4-35.0) % Coffey % (Auto) 9.3 H (0.0-7.3) % Lymph # 0.9 L (1.2-5.4) K/mm3 [place]offey # (0.0-0.8) K/mm3 Seg Neutrophils % 79.6 H (40.0-70.0) % Seg Neutrophils # (1.8-7.7) K/mm3 INR (0.87-1.13) Sodium 155 H (137-145) mmol/L Chloride 121.3 H (98-107) mmol/L BUN 38 H (9-20) mg/dL Glucose 128 H (75-100) mg/dL POC Glucose (70-105) Lactic Acid (0.7-2.0) mmol/L Total Bilirubin 1.60 H (0.1-1.2) mg/dL Direct Bilirubin (0-0.2) mg/dL AST 179 H (5-40) units/L ALT 232 H (7-56) units/L Total Creatine Kinase (55-170) units/L Total Protein 5.7 L D (6.3-8.2) g/dL Albumin 3.1 L (3.9-5) g/dL Salicylates (2.8-20.0) mg/dL Acetaminophen < 5.0 L (10.0-30.0) ug/mL All other labs normal. Assessment and Plan - Psychiatric problem (1) Schizophrenia with prominent negative symptoms Current Visit: Yes Status: Acute (2) Selective mutism Current Visit: Yes Status: Acute
[2019-08-05] MEDS: ARIPiprazole 15 MG TAB PO SCH (15:03)
--- NOTE | 2019-08-05 15:44 | Progress Note ---
Assessment and Plan - Patient Problems (1) Encephalopathy acute Current Visit: Yes Status: Acute Plan to address problem: Sec to dehydration and Hypernatremia IV fluids for now Psych consult (2) Hypernatremia Current Visit: Yes Status: Acute Plan to address problem: Half normal saline /D5w (3) Rhabdomyolysis Current Visit: Yes Status: Acute Qualifiers: Rhabdomyolysis type: non-traumatic Qualified Code(s): M62.82 - Rhabdomyoly sis Plan to address problem: IV FLuids (4) HTN (hypertension) Current Visit: Yes Status: Chronic Qualifiers: Hypertension type: essential hypertension Qualified Code(s): I10 - Essential (primary) hypertension Plan to address problem: Cont antihypertensives (5) Schizoaffective disorder Current Visit: Yes Status: Chronic Qualifiers: Schizoaffective disorder type: depressive Qualified Code(s): F25.1 - Schizoaffective disorder, depressive type Plan to address problem: Cont Ablify (6) Transaminitis Current Visit: Yes Status: Acute Plan to address problem: Check Hepatitis profile Drug induced?? GB ultrasound (7) DVT prophylaxis Current Visit: Yes Status: Acute Plan to address problem: On Heparin and GI prophylaxis Subjective Date of service: 08/05/19 Principal diagnosis: Hyponatremia, catatonia, schizoaffective disorder Interval history: 58 years old male with history of schizophrenia -- catatonic type brought to the emergency room from [facility] for evaluation of altered mental status decrease p.o. intake for the last 4 days. Facility staff reported that patient stopped eating and drinking since he got to the facility on Friday, 3 days ago. Patient is alert but not answering any questions. Patient with significant dry mucous membrane. Patient also found to be tachycardic but afebrile. Ms. Radha Desouza -- Her number is [phone]---aifa patient has been diagnosed with schizoaffective disorder and he has been very depressed recently. Apparently he is allergic to Haldol and causes malignant neuroleptic syndrome. She told me that he almost last time when they gave him this medication. She told me that he is on Trileptal and Abilify. She requested the patient to be transferred to [facility] after he is medically clear. Stable and alert but not talking Able to move all 4 extremities Objective - Constitutional Vitals: Vital Signs - 12hr 08/05/19 08/05/19 08/05/19 04:25 04:43 08:07 Temperature 101.5 F H 98.6 F Pulse Rate 97 H 85 Respiratory 24 20 Rate Blood Pressure 128/69 Blood Pressure 134/66 [Left] O2 Sat by Pulse 98 95 Oximetry 08/05/19 09:46 Temperature Pulse Rate 79 Respiratory Rate Blood Pressure Blood Pressure [Left] O2 Sat by Pulse Oximetry General appearance: Present: no acute distress, well-nourished - EENT Eyes: PERRL, EOM intact ENT: hearing intact, clear oral mucosa Ears: bilateral: normal - Neck Neck: supple, normal ROM - Respiratory Respiratory effort: normal Respiratory: bilateral: CTA - Breasts Breasts: normal - Cardiovascular Rhythm: regular Heart Sounds: Present: S1 & S2. Absent: gallop, rub Extremities: pulses intact, No edema, normal color, Full ROM - Gastrointestinal General gastrointestinal: Present: soft, non-tender, non-distended, normal bowel sounds - Genitourinary Male genitourinary: normal - Integumentary Integumentary: clear, warm, dry - Musculoskeletal Musculoskeletal: 1, strength equal bilaterally - Neurologic Neurologic: moves all extremities - Psychiatric Psychiatric: memory intact, appropriate mood/affect, intact judgment & insight - Labs CBC & Chem 7: 08/05/19 03:33 08/06/19 10:23 Labs: Abnormal lab results 08/05/19 08/05/19 Range/Units 03:33 03:33 Lymph % (Auto) 10.8 L (13.4-35.0) % [place] % (Auto) 9.3 H (0.0-7.3) % Lymph # 0.9 L (1.2-5.4) K/mm3 Seg Neutrophils % 79.6 H (40.0-70.0) % Sodium 155 H (137-145) mmol/L Chloride 121.3 H (98-107) mmol/L BUN 38 H (9-20) mg/dL Glucose 128 H (75-100) mg/dL Total Bilirubin 1.60 H (0.1-1.2) mg/dL AST 179 H (5-40) units/L ALT 232 H (7-56) units/L Total Protein 5.7 L D (6.3-8.2) g/dL Albumin 3.1 L (3.9-5) g/dL
[2019-08-05 18:22] LABS: Hepatitis B Surface Antigen Non-Reactive (Negative); Hepatitis C Virus Antibody Non-Reactive (NonReactive)
[2019-08-05] MEDS: DIVALPROEX DR 500 MG TAB PO SCH (21:44)
[2019-08-05] MEDS: traZODone 100 MG TAB PO SCH (21:45)
--- NOTE | 2019-08-06 10:18 | Progress Note ---
Subjective - Reason for Consult Consult date: 08/06/19 Reason for consult: Altered mental status - Chief Complaint Chief complaint: I reviewed the patient's medical record and the patient's progress was discussed with the nursing staff. The tech at bedside states the patient has outbursts frequently, yells, and tries to bite himself. I attempted to interview the patient this morning, he was lying in bed awake, but drowsy. The patient was in wrist restraints with a sitter at bedside. The patient would not respond to any interview questioning. He would open his eyes when spoken to but drifts back to sleep. REVIEW OF SYSTEMS Unable to complete due to patient factors MENTAL STATUS EXAMINATION Unable to adequately assess due to patient factors Assessment: Schizoaffective Disorder RECOMMENDATIONS MEDICATIONS: No medication changes made today Risks, benefits and alternatives of medications discussed with the patient, questions answered and consent obtained from patient. PSYCHOTHERAPY: Supportive psychotherapy provided MEDICAL: Per primary team DELIRIUM PRECAUTIONS: Please re-orient patient frequently, keep lights on during the day, and minimize benzodiazepines and opiates as these medications could worsen patient's confusion. 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 May transfer to inpatient psych once medically clear. FOLLOW-UP: Will follow Thank you for the consult. Please contact with any questions or concerns. Mental Status Exam - Vital signs Last Vital Signs Temp 98.3 F 08/06/19 05:21 Pulse 86 08/06/19 06:00 Resp 18 08/06/19 06:00 BP 158/95 08/06/19 05:21 Pulse Ox 97 08/06/19 06:00
[2019-08-06] MEDS: D5W/0.9% NACL 1,000 ML IV SCH (10:38)
[2019-08-06 11:15] LABS: BUN/Creatinine Ratio 19; Blood Urea Nitrogen 21 mg/dL (9-20); Calcium 8.7 mg/dL (8.4-10.2); Hemolysis Index 9
[2019-08-06] MEDS: FAMOTIDINE 20 MG/2 ML INJ IV SCH (11:55)
[2019-08-06] MEDS: BENZTROPINE 1 MG TAB PO SCH (11:56)
[2019-08-06] MEDS: OXcarbazepine 300 MG TAB PO SCH ×2 (11:56→22:23)
[2019-08-06] MEDS: amLODIPine 5 MG TAB PO SCH (11:59)
[2019-08-06] MEDS: ARIPiprazole 15 MG TAB PO SCH (15:21)
[2019-08-06] MEDS: ZIPRASIDONE MESYLATE 20 MG VIAL IM PRN (22:14)
[2019-08-06] MEDS ORDERED: WATER FOR INJ Sterile (PF) 10 ML ONE (22:16)
[2019-08-06] MEDS: FAMOTIDINE 10 MG TAB PO SCH (22:23)
[2019-08-06] MEDS: DIVALPROEX DR 500 MG TAB PO SCH (22:23)
[2019-08-06] MEDS: traZODone 100 MG TAB PO SCH (22:25)
[2019-08-07] MEDS ORDERED: amLODIPine 5 MG TAB PO ONE (01:31)
[2019-08-07] MEDS: BENZTROPINE 1 MG TAB PO SCH (09:18)
[2019-08-07] MEDS: ARIPiprazole 15 MG TAB PO SCH (09:18)
[2019-08-07] MEDS: FAMOTIDINE 10 MG TAB PO SCH ×2 (09:18→21:06)
[2019-08-07] MEDS: amLODIPine 5 MG TAB PO SCH (09:18)
[2019-08-07] MEDS: OXcarbazepine 300 MG TAB PO SCH ×2 (09:18→21:06)
--- NOTE | 2019-08-07 11:53 | Progress Note ---
Subjective - Reason for Consult Consult date: 08/07/19 Reason for consult: agitation, not eating or drinking - Chief Complaint Chief complaint: I reviewed the patient's medical record and the patient's progress was discussed with the nursing staff. The nurse note states the patient pulled IV out cath intact. The patient was combative I attempted to interview the patient this morning, he was lying in bed awake, but drowsy. The patient was in wrist restraints and mitts, with a sitter at bedside. When I called the patient name and asked if he could hear me, he replied, "no." He would respond to any further questioning. He drifted back off. REVIEW OF SYSTEMS Unable to complete due to patient factors MENTAL STATUS EXAMINATION Unable to adequately assess due to patient factors Assessment: Schizoaffective Disorder RECOMMENDATIONS MEDICATIONS: No medication changes made today Risks, benefits and alternatives of medications discussed with the patient, questions answered and consent obtained from patient. PSYCHOTHERAPY: Supportive psychotherapy provided MEDICAL: Per primary team DELIRIUM PRECAUTIONS: Please re-orient patient frequently, keep lights on during the day, and minimize benzodiazepines and opiates as these medications could worsen patient's confusion. 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 May transfer to acute psychiatric facility once medically clear. FOLLOW-UP: Will continue to follow Thank you for the consult. Please contact with any questions or concerns. Mental Status Exam - Vital signs Last Vital Signs Temp 98.3 F 08/07/19 07:54 Pulse 86 08/07/19 07:54 Resp 22 08/07/19 07:54 BP 168/81 08/07/19 07:54 Pulse Ox 98 08/07/19 07:54
[2019-08-07] MEDS ORDERED: WATER FOR INJ Sterile (PF) 10 ML ONE (20:14)
[2019-08-07] MEDS: DIVALPROEX DR 500 MG TAB PO SCH (21:05)
[2019-08-07] MEDS: traZODone 100 MG TAB PO SCH (21:07)
[2019-08-07] MEDS: ZIPRASIDONE MESYLATE 20 MG VIAL IM PRN (21:23)
--- NOTE | 2019-08-07 22:37 | Progress Note ---
Assessment and Plan - Patient Problems (1) Encephalopathy acute Current Visit: Yes Status: Acute Plan to address problem: Sec to dehydration and Hypernatremia IV fluids for now Psych consult (2) Hypernatremia Current Visit: Yes Status: Acute Plan to address problem: Half normal saline /D5w Sodium is 150 (3) Rhabdomyolysis Current Visit: Yes Status: Acute Qualifiers: Rhabdomyolysis type: non-traumatic Qualified Code(s): M62.82 - Rhabdomyolysis Plan to address problem: IV FLuids Improved (4) HTN (hypertension) Current Visit: Yes Status: Chronic Qualifiers: Hypertension type: essential hypertension Qualified Code(s): I10 - Essential (primary) hypertension Plan to address problem: Cont antihypertensives (5) Schizoaffective disorder Current Visit: Yes Status: Chronic Qualifiers: Schizoaffective disorder type: depressive Qualified Code(s): F25.1 - Schizoaffective disorder, depressive type Plan to address problem: Cont Ablify (6) Transaminitis Current Visit: Yes Status: Acute Plan to address problem: Check Hepatitis profile Drug induced?? GB ultrasound (7) DVT prophylaxis Current Visit: Yes Status: Acute Plan to address problem: On Heparin and GI prophylaxis Subjective Date of service: 08/07/19 Principal diagnosis: Hypernatremia, catatonia, schizoaffective disorder Interval history: 58 years old male with history of schizophrenia -- catatonic type brought to the emergency room from [facility] for evaluation of altered mental status decrease p.o. intake for the last 4 days. Facility staff reported that patient stopped eating and drinking since he got to the facility on Friday, 3 days ago. Patient is alert but not answering any questions. Patient with significant dry mucous membrane. Patient also found to be tachycardic but afebrile. Ms. Radha Desouza -- Her number is [phone]---meci patient has been diagnosed with schizoaffective disorder and he has been very depressed recently. Apparently he is allergic to Haldol and causes malignant neuroleptic syndrome. She told me that he almost last time when they gave him this medication. She told me that he is on Trileptal and Abilify. She requested the patient to be transferred to [facility] after he is medically clear. Stable and alert but not talking Able to move all 4 extremities Symptomatically better Objective - Constitutional Vitals: Vital Signs - 12hr 08/07/19 08/07/19 08/07/19 12:00 12:02 14:00 Temperature 98.0 F 98.0 F Pulse Rate 59 L 62 14 L Respiratory 18 18 Rate Blood Pressure 169/81 Blood Pressure 169/81 [Left] O2 Sat by Pulse 97 100 Oximetry 08/07/19 08/07/19 16:01 19:20 Temperature 98.1 F 97.8 F Pulse Rate 61 78 Respiratory 18 18 Rate Blood Pressure 152/91 149/80 Blood Pressure [Left] O2 Sat by Pulse 97 97 Oximetry General appearance: Present: no acute distress, well-nourished - EENT Eyes: PERRL, EOM intact ENT: hearing intact, clear oral mucosa Ears: bilateral: normal - Neck Neck: supple, normal ROM - Respiratory Details: 78 Respiratory effort: normal Respiratory: bilateral: CTA - Breasts Breasts: normal - Cardiovascular Heart rate: 78 Rhythm: regular Heart Sounds: Present: S1 & S2. Absent: gallop, rub Extremities: pulses intact, No edema, normal color, Full ROM - Gastrointestinal General gastrointestinal: Present: soft, non-tender, non-distended, normal bowel sounds - Genitourinary Male genitourinary: normal - Integumentary Integumentary: clear, warm, dry - Musculoskeletal Musculoskeletal: 1, strength equal bilaterally - Neurologic Neurologic: moves all extremities - Psychiatric Psychiatric: other (Confused and altered sensorium) - Allied health notes Allied health notes reviewed: nursing, case management - Labs CBC & Chem 7: 08/05/19 03:33 08/06/19 10:23 Labs: Abnormal lab results 08/06/19 08/07/19 Range/Units 23:33 11:10 Total Creatine Kinase 905 H 476 H (55-170) units/L
[2019-08-08] MEDS: ZIPRASIDONE MESYLATE 20 MG VIAL IM PRN (02:43)
[2019-08-08 07:24] LABS: Basophils % (Auto) 0.3 % (0.0-1.8); Eosinophils # (Auto) 0.2 K/mm3 (0.0-0.4); Hematocrit 45.3 % (35.5-45.6); Hemoglobin 15.7 gm/dl (11.8-15.2); Lymphocytes # (Auto) 1.3 K/mm3 (1.2-5.4); Lymphocytes % (Auto) 16.8 % (13.4-35.0); Mean Corpuscular HGB Conc 35 % (32-34); Mean Corpuscular Volume 88 fl (84-94); Monocytes # (Auto) 0.4 K/mm3 (0.0-0.8); Monocytes % (Auto) 5.6 % (0.0-7.3); Platelet Count 178 K/mm3 (140-440); Red Blood Count 5.15 M/mm3 (3.65-5.03); Red Cell Distribution Width 13.7 % (13.2-15.2)
[2019-08-08 07:45] LABS: Alanine Aminotransferase 210 units/L (7-56); Albumin 3.1 g/dL (3.9-5); BUN/Creatinine Ratio 27; Blood Urea Nitrogen 24 mg/dL (9-20); Calcium 8.9 mg/dL (8.4-10.2); Hemolysis Index 6
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
[2019-08-08] MEDS ORDERED: ARIPiprazole 15 MG TAB PO SCH (09:13)
[2019-08-08] MEDS: ARIPiprazole 10 MG TAB PO SCH (09:44)
[2019-08-08] MEDS: FAMOTIDINE 10 MG TAB PO SCH ×2 (09:44→21:01)
[2019-08-08] MEDS: amLODIPine 5 MG TAB PO SCH (09:44)
[2019-08-08] MEDS: BENZTROPINE 1 MG TAB PO SCH (09:44)
[2019-08-08] MEDS: LORazepam 2 MG/ML VIAL IM SCH ×3 (09:44→21:01)
[2019-08-08] MEDS: OXcarbazepine 300 MG TAB PO SCH ×2 (09:44→21:01)
[2019-08-08] MEDS: D5W/0.9% NACL 1,000 ML IV SCH (16:57)
[2019-08-08] MEDS: DIVALPROEX DR 500 MG TAB PO SCH (21:01)
[2019-08-08] MEDS: traZODone 100 MG TAB PO SCH (21:01)
[2019-08-09] MEDS: SODIUM CHLORIDE 0.45% 1000 ML 1,000 ML IV SCH ×3 (00:23→17:40)
[2019-08-09] MEDS: LORazepam 2 MG/ML VIAL IM SCH ×4 (03:40→22:00)
--- NOTE | 2019-08-09 09:07 | Progress Note ---
Assessment and Plan - Patient Problems (1) Encephalopathy acute Current Visit: Yes Status: Acute Plan to address problem: Sec to dehydration and Hypernatremia IV fluids for now Psych consult (2) Hypernatremia Current Visit: Yes Status: Acute Plan to address problem: Half normal saline /D5w Sodium is 150 (3) Rhabdomyolysis Current Visit: Yes Status: Acute Qualifiers: Rhabdomyolysis type: non-traumatic Qualified Code(s): M62.82 - Rhabdomyolysis Plan to address problem: IV FLuids Improved (4) HTN (hypertension) Current Visit: Yes Status: Chronic Qualifiers: Hypertension type: essential hypertension Qualified Code(s): I10 - Essential (primary) hypertension Plan to address problem: Cont antihypertensives (5) Schizoaffective disorder Current Visit: Yes Status: Chronic Qualifiers: Schizoaffective disorder type: depressive Qualified Code(s): F25.1 - Schizoaffective disorder, depressive type Plan to address problem: Cont Ablify (6) Transaminitis Current Visit: Yes Status: Acute Plan to address problem: Check Hepatitis profile Drug induced?? GB ultrasound (7) DVT prophylaxis Current Visit: Yes Status: Acute Subjective Date of service: 08/06/19 Principal diagnosis: Hypernatremia, catatonia, schizoaffective disorder Interval history: 58 years old male with history of schizophrenia -- catatonic type brought to the emergency room from [facility] for evaluation of altered mental status decrease p.o. intake for the last 4 days. Facility staff reported that patient stopped eating and drinking since he got to the facility on Friday, 3 days ago. Patient is alert but not answering any questions. Patient with significant dry mucous membrane. Patient also found to be tachycardic but afebrile. Ms. Radha Desouza -- Her number is [phone]---czxv patient has been diagnosed with schizoaffective disorder and he has been very depressed recently. Apparently he is allergic to Haldol and causes malignant neuroleptic syndrome. She told me that he almost last time when they gave him this m edication. She told me that he is on Trileptal and Abilify. She requested the patient to be transferred to [facility] after he is medically clear. Stable and alert but not talking Able to move all 4 extremities Symptomatically better Objective - Constitutional Vitals: Vital Signs - 12hr 08/08/19 08/08/19 08/09/19 23:06 23:11 03:31 Temperature 98.6 F 98.6 F 98.5 F Pulse Rate 72 77 78 Respiratory 16 16 16 Rate Blood Pressure 155/101 144/71 Blood Pressure 145/85 [Right] O2 Sat by Pulse 95 94 97 Oximetry 08/09/19 08/09/19 07:53 08:46 Temperature 98.4 F Pulse Rate 75 Respiratory 22 18 Rate Blood Pressure 168/107 Blood Pressure [Right] O2 Sat by Pulse 96 Oximetry General appearance: Present: no acute distress, well-nourished - EENT Eyes: PERRL, EOM intact ENT: hearing intact, clear oral mucosa Ears: bilateral: normal - Neck Neck: supple, normal ROM - Respiratory Respiratory effort: normal Respiratory: bilateral: CTA - Breasts Breasts: normal - Cardiovascular Heart rate: 78 Rhythm: regular Heart Sounds: Present: S1 & S2. Absent: gallop, rub Extremities: pulses intact, No edema, normal color, Full ROM - Gastrointestinal General gastrointestinal: Present: soft, non-tender, non-distended, normal bowel sounds - Genitourinary Male genitourinary: normal - Integumentary Integumentary: clear, warm, dry - Musculoskeletal Musculoskeletal: 1, strength equal bilaterally - Neurologic Neurologic: moves all extremities - Psychiatric Psychiatric: memory intact, appropriate mood/affect, intact judgment & insight - Labs CBC & Chem 7: 08/08/19 06:12 08/08/19 06:12 Labs: Abnormal lab results 08/08/19 08/08/19 08/08/19 Range/Units 09:18 09:18 23:29 Total Creatine Kinase 178 H 267 H (55-170) units/L Valproic Acid 30.6 L (50-100) ug/mL
--- NOTE | 2019-08-09 09:10 | Progress Note ---
Assessment and Plan - Patient Problems (1) Encephalopathy acute Current Visit: Yes Status: Acute Plan to address problem: Sec to dehydration and Hypernatremia IV fluids for now Psych consult appreciated Better (2) Hypernatremia Current Visit: Yes Status: Acute Plan to address problem: Half normal saline /D5w Sodium is 150 Improved (3) Rhabdomyolysis Current Visit: Yes Status: Acute Qualifiers: Rhabdomyolysis type: non-traumatic Qualified Code(s): M62.82 - Rhabdomyolysis Plan to address problem: IV FLuids Improved (4) HTN (hypertension) Current Visit: Yes Status: Chronic Qualifiers: Hypertension type: essential hypertension Qualified Code(s): I10 - Essential (primary) hypertension Plan to address problem: Cont antihypertensives (5) Schizoaffective disorder Current Visit: Yes Status: Chronic Qualifiers: Schizoaffective disorder type: depressive Qualified Code(s): F25.1 - Schizoaffective disorder, depressive type Plan to address problem: Cont Ablify (6) Transaminitis Current Visit: Yes Status: Acute Plan to address problem: Check Hepatitis profile Drug induced?? GB ultrasound (7) DVT prophylaxis Current Visit: Yes Status: Acute Plan to address problem: On Heparin and GI prophylaxis (8) Discharge planning issues Current Visit: Yes Status: Acute Plan to address problem: Patient medically cleared for discharge to Psych unit Subjective Date of service: 08/08/19 Principal diagnosis: Hypernatremia, catatonia, schizoaffective disorder Interval history: 58 years old male with history of schizophrenia -- catatonic type brought to the emergency room from [facility] for evaluation of altered mental status decrease p.o. intake for the last 4 days. Facility staff reported that patient stopped eating and drinking since he got to the facility on Friday, 3 days ago. Patient is alert but not answering any questions. Patient with significant dry mucous membrane. Patient also found to be tachycardic but afebrile. Ms. Radha Desouza -- Her number is [phone]---[facility] patient has been diagnosed with schizoaffective disorder and he has been very depressed recently. Apparently he is allergic to Haldol and causes malignant neuroleptic syndrome. She told me that he almost last time when they gave him this medication. She told me that he is on Trileptal and Abilify. She requested the patient to be transferred to [facility] after he is medically clear. Stable and alert but not talking Able to move all 4 extremities Symptomatically better Objective - Constitutional Vitals: Vital Signs - 12hr 08/08/19 08/08/19 08/09/19 23:06 23:11 03:31 Temperature 98.6 F 98.6 F 98.5 F Pulse Rate 72 77 78 Respiratory 16 16 16 Rate Blood Pressure 155/101 144/71 Blood Pressure 145/85 [Right] O2 Sat by Pulse 95 94 97 Oximetry 08/09/19 08/09/19 07:53 08:46 Temperature 98.4 F Pulse Rate 75 Respiratory 22 18 Rate Blood Pressure 168/107 Blood Pressure [Right] O2 Sat by Pulse 96 Oximetry General appearance: Present: no acute distress, well-nourished - EENT Eyes: PERRL, EOM intact ENT: hearing intact, clear oral mucosa Ears: bilateral: normal - Neck Neck: supple, normal ROM - Respiratory Respiratory effort: normal Respiratory: bilateral: CTA - Breasts Breasts: normal - Cardiovascular Heart rate: 88 Rhythm: regular Heart Sounds: Present: S1 & S2. Absent: gallop, rub Extremities: pulses intact, No edema, normal color, Full ROM - Gastrointestinal General gastrointestinal: Present: soft, non-tender, non-distended, normal bowel sounds - Genitourinary Male genitourinary: normal - Integumentary Integumentary: clear, warm, dry - Musculoskeletal Musculoskeletal: 1, strength equal bilaterally - Neurologic Neurologic: moves all extremities - Psychiatric Psychiatric: memory intact, appropriate mood/affect, intact judgment & insight - Labs CBC & Chem 7: 08/08/19 06:12 08/08/19 06:12 Labs: Abnormal lab results 08/08/19 08/08/19 08/08/19 Range/Units 09:18 09:18 23:29 Total Creatine Kinase 178 H 267 H (55-170) units/L Valproic Acid 30.6 L (50-100) ug/mL
[2019-08-09] MEDS: ARIPiprazole 10 MG TAB PO SCH (09:38)
[2019-08-09] MEDS: FAMOTIDINE 10 MG TAB PO SCH ×2 (09:38→21:48)
[2019-08-09] MEDS: amLODIPine 5 MG TAB PO SCH (09:38)
[2019-08-09] MEDS: BENZTROPINE 1 MG TAB PO SCH (09:38)
[2019-08-09] MEDS: OXcarbazepine 300 MG TAB PO SCH ×2 (09:38→21:48)
--- NOTE | 2019-08-09 10:50 | Progress Note ---
Subjective - Reason for Consult Consult date: 08/09/19 Reason for consult: depression, agitation, not eating or drinking - Chief Complaint Chief complaint: I reviewed the patient's medical record and the patient's progress was discussed with the nursing staff. The nurse note states the patient is oriented x 1-2. He states that he is in [place]. Pt also will read my name rico and reply [facility]. The patient is forgetful and impulsive. He has been easily redirected. During my interview with the patient this morning, he is lying in bed with his eyes closed. He has his gown raised exposing himself. Sitter is at bedside. The patient is in restraints. He Easily arouses. He is a/o x 1 with disorganized thoughts. He is actually speaking some today. Upon me calling his name, the patient replies, "yes." He states, "I don't feel good. I've lost some weight." He then states to me "this is the last supper." When asked about suicidal thoughts, the patient replied, "I think I was suicidal." He would not answer any further questioning after this. He closed his eyes and gave no further response even with name being called. REVIEW OF SYSTEMS Unable to complete due to patient factors MENTAL STATUS EXAMINATION Unable to adequately assess due to patient factors Assessment: Schizoaffective Disorder RECOMMENDATIONS MEDICATIONS: Increased Depakote DR 1500mg IV qhs (Valproate level 30.6) Risks, benefits and alternatives of medications discussed with the patient, questions answered and consent obtained from patient. PSYCHOTHERAPY: Supportive psychotherapy provided MEDICAL: Per primary team DELIRIUM PRECAUTIONS: Please re-orient patient frequently, keep lights on during the day, and minimize benzodiazepines and opiates as these medications could worsen patient's confusion. VEGETABLE TESTER: Defer to primary DISPOSITION: The patient meets the requirement for acute inpatient treatment. May transfer to acute psychiatric facility once medically clear. FOLLOW-UP: Will continue to follow Thank you for the consult. Please contact with any questions or concerns. Mental Status Exam - Vital signs Last Vital Signs Temp 98.4 F 08/09/19 07:53 Pulse 74 08/09/19 09:38 Resp 18 08/09/19 08:46 BP 168/107 08/09/19 09:38 Pulse Ox 96 08/09/19 07:53
--- NOTE | 2019-08-09 16:42 | Progress Note ---
Assessment and Plan - Patient Problems (1) Encephalopathy acute Current Visit: Yes Status: Acute Plan to address problem: Sec to dehydration and Hypernatremia IV fluids for now Psych consult appreciated Better (2) Hypernatremia Current Visit: Yes Status: Acute Plan to address problem: Half normal saline /D5w Sodium is 150--145 Improved (3) Rhabdomyolysis Current Visit: Yes Status: Acute Qualifiers: Rhabdomyolysis type: non-traumatic Qualified Code(s): M62.82 - Rhabdomyolysis Plan to address problem: IV FLuids Improved Cratinine to near normal level (4) HTN (hypertension) Current Visit: Yes Status: Chronic Qualifiers: Hypertension type: essential hypertension Qualified Code(s): I10 - Essential (primary) hypertension Plan to address problem: Cont antihypertensives (5) Schizoaffective disorder Current Visit: Yes Status: Chronic Qualifiers: Schizoaffective disorder type: depressive Qualified Code(s): F25.1 - Sc hizoaffective disorder, depressive type Plan to address problem: Cont Ablify (6) Transaminitis Current Visit: Yes Status: Acute Plan to address problem: Check Hepatitis profile Drug induced?? GB ultrasound (7) DVT prophylaxis Current Visit: Yes Status: Acute Plan to address problem: On Heparin and GI prophylaxis (8) Discharge planning issues Current Visit: Yes Status: Acute Plan to address problem: Patient medically cleared for discharge to Psych unit Subjective Date of service: 08/09/19 Principal diagnosis: Hypernatremia, catatonia, schizoaffective disorder Interval history: 58 years old male with history of schizophrenia -- catatonic type brought to the emergency room from [facility] for evaluation of altered mental status decrease p.o. intake for the last 4 days. Facility staff reported that patient stopped eating and drinking since he got to the facility on Friday, 3 days ago. Patient is alert but not answering any questions. Patient with significant dry mucous membrane. Patient also found to be tachycardic but afebrile. Ms. Radha Desouza -- Her number is [phone]---yydp patient has been diagnosed with schizoaffective disorder and he has been very depressed recently. Apparently he is allergic to Haldol and causes malignant neuroleptic syndrome. She told me that he almost last time when they gave him this medication. She told me that he is on Trileptal and Abilify. She requested the patient to be transferred to [facility] after he is medically clear. Stable and alert but not talking Able to move all 4 extremities Symptomatically better Still catatonic Objective - Constitutional Vitals: Vital Signs - 12hr 08/09/19 08/09/19 08/09/19 07:53 08:46 09:38 Temperature 98.4 F Pulse Rate 75 74 Respiratory 22 18 Rate Blood Pressure 168/107 168/107 O2 Sat by Pulse 96 Oximetry 08/09/19 08/09/19 12:00 13:30 Temperature 97.5 F L Pulse Rate 67 75 Respiratory 22 Rate Blood Pressure 162/105 O2 Sat by Pulse 98 Oximetry General appearance: Present: no acute distress, well-nourished - EENT Eyes: PERRL, EOM intact ENT: hearing intact, clear oral mucosa Ears: bilateral: normal - Neck Neck: supple, normal ROM - Respiratory Respiratory effort: normal Respiratory: bilateral: CTA - Breasts Breasts: normal - Cardiovascular Heart rate: 78 Rhythm: regular Heart Sounds: Present: S1 & S2. Absent: gallop, rub Extremities: pulses intact, No edema, normal color, Full ROM - Gastrointestinal General gastrointestinal: Present: soft, non-tender, non-distended, normal bowel sounds - Genitourinary Male genitourinary: normal - Integumentary Integumentary: clear, warm, dry - Musculoskeletal Musculoskeletal: 1, strength equal bilaterally - Neurologic Neurologic: moves all extremities - Psychiatric Psychiatric: depressed, other (Flat facies.No expression,responds minimally) - Labs CBC & Chem 7: 08/08/19 06:12 08/08/19 06:12 Labs: Abnormal lab results 08/08/19 08/09/19 Range/Units 23:29 10:15 Total Creatine Kinase 267 H 231 H (55-170) units/L
[2019-08-09] MEDS: DIVALPROEX DR 500 MG TAB PO SCH (21:48)
[2019-08-09] MEDS: traZODone 100 MG TAB PO SCH (21:48)
[2019-08-10] MEDS: LORazepam 2 MG/ML VIAL IM SCH ×3 (04:48→17:00)
[2019-08-10] MEDS: D5W/0.9% NACL 1,000 ML IV SCH (04:48)
--- NOTE | 2019-08-10 06:50 | Event Note ---
Date: 08/09/19 Shelbi waitkishore for transfer to outside Psych unit for his Catatonia and Schizoaffective disorder social service manager and consult on board regarding transfer.Discharge order put in.Follow up with case managers.
--- NOTE | 2019-08-10 09:40 | Progress Note ---
Assessment and Plan Assessment and plan: 58 years old male with history of schizophrenia -- catatonic type brought to the emergency room from [facility] for evaluation of altered mental status decrease p.o. intake for the last 4 days. Facility staff reported that patient stopped eating and drinking since he got to the facility on Friday, 3 days ago. Patient is alert but not answering any questions. Patient with significant dry mucous membrane. Patient also found to be tachycardic but afebrile. Ms. Radha Desouza -- Her number is [phone]---bhdj patient has been diagnosed with schizoaffective disorder and he has been very depressed recently. Apparently he is allergic to Haldol and causes malignant neuroleptic syndrome. She told me that he almost last time when they gave him this medication. She told me that he is on Trileptal and Abilify. She requested the patient to be transferred to [facility] after he is medically clear. Stable and alert but not talking Able to move all 4 extremities Symptomatically better Patient gets Violent to nursing staff and refused lab today stating that he knows his rights and can refused labs. In my opinion his continual refusal to eat is more to his psych illness rather than an organic medical condition (1) Encephalopathy acute Current Visit: Yes Status: Acute Plan to address problem: Sec to dehydration and Hypernatremia IV fluids for now Psych consult appreciated Better (2) Hypernatremia Current Visit: Yes Status: Acute Plan to address problem: Half normal saline /D5w Sodium is 150--145 Improved (3) Rhabdomyolysis Current Visit: Yes Status: Acute Qualifiers: Rhabdomyolysis type: non-traumatic Qualified Code(s): M62.82 - Rhabdomyolysis Plan to address problem: IV FLuids Improved Cratinine to near normal level (4) HTN (hypertension) Current Visit: Yes Status: Chronic Qualifiers: Hypertension type: essential hypertension Qualified Code(s): I10 - [place] l (primary) hypertension Plan to address problem: Cont antihypertensives (5) Schizoaffective disorder Current Visit: Yes Status: Chronic Qualifiers: Schizoaffective disorder type: depressive Qualified Code(s): F25.1 - Schizoaffective disorder, depressive type Plan to address problem: Cont Ablify (6) Transaminitis Current Visit: Yes Status: Acute Plan to address problem: Check Hepatitis profile Drug induced?? GB ultrasound (7) DVT prophylaxis Current Visit: Yes Status: Acute Plan to address problem: On Heparin and GI prophylaxis (8) Discharge planning issues Current Visit: Yes Status: Acute Plan to address problem: Patient medically cleared for discharge to Psych unit History Interval history: Patient seen and examined, resting comfortable, was agitated overnight Hospitalist Physical - Physical exam Narrative exam: General appearance: Present: no acute distress, well-nourished - EENT Eyes: PERRL, EOM intact ENT: hearing intact, clear oral mucosa Ears: bilateral: normal - Neck Neck: supple, normal ROM - Respiratory Respiratory effort: normal Respiratory: bilateral: CTA - Breasts Breasts: normal - Cardiovascular Heart rate: 78 Rhythm: regular Heart Sounds: Present: S1 & S2. Absent: gallop, rub Extremities: pulses intact, No edema, normal color, Full ROM - Gastrointestinal General gastrointestinal: Present: soft, non-tender, non-distended, normal bowel sounds - Genitourinary Male genitourinary: normal - Integumentary Integumentary: clear, warm, dry - Musculoskeletal Musculoskeletal: 1, strength equal bilaterally - Neurologic Neurologic: moves all extremities - Psychiatric Psychiatric: depressed, other - Constitutional Vitals: Temp Pulse Resp BP Pulse Ox 97.8 F 83 17 129/86 98 08/10/19 07:59 08/09/19 23:52 08/10/19 07:59 08/10/19 07:59 08/09/19 23:52 General appearance: Present: no acute distress, well-nourished Results - Labs CBC & Chem 7: 08/08/19 06:12 08/10/19 08:51 Labs: Laboratory Last Values WBC 7.5 K/mm3 (4.5-11.0) 08/08/19 06:12 RBC 5.15 M/mm3 (3.65-5.03) H 08/08/19 06:12 Hgb 15.7 gm/dl (11.8-15.2) H 08/08/19 06:12 Hct 45.3 % (35.5-45.6) 08/08/19 06:12 MCV 88 fl (84-94) 08/08/19 06:12 MCH 31 pg (28-32) 08/08/19 06:12 MCHC 35 % (32-34) H 08/08/19 06:12 RDW 13.7 % (13.2-15.2) 08/08/19 06:12 Plt Count 178 K/mm3 (140-440) 08/08/19 06:12 Lymph % (Auto) 16.8 % (13.4-35.0) 08/08/19 06:12 [place] % (Auto) 5.6 % (0.0-7.3) 08/08/19 06:12 Eos % (Auto) 2.0 % (0.0-4.3) 08/08/19 06:12 Baso % (Auto) 0.3 % (0.0-1.8) 08/08/19 06:12 Lymph # 1.3 K/mm3 (1.2-5.4) 08/08/19 06:12 [place] # 0.4 K/mm3 (0.0-0.8) 08/08/19 06:12 Eos # 0.2 K/mm3 (0.0-0.4) 08/08/19 06:12 Baso # 0.0 K/mm3 (0.0-0.1) 08/08/19 06:12 Seg Neutrophils % 75.3 % (40.0-70.0) H 08/08/19 06:12 Seg Neutrophils # 5.6 K/mm3 (1.8-7.7) 08/08/19 06:12 PT 14.7 Sec. (12.2-14.9) 08/04/19 13:03 INR 1.14 (0.87-1.13) H 08/04/19 13:03 APTT 24.9 Sec. (24.2-36.6) 08/04/19 13:03 Sodium 145 mmol/L (137-145) 08/08/19 06:12 Potassium 4.0 mmol/L (3.6-5.0) 08/08/19 06:12 Chloride 106.6 mmol/L (98-107) 08/08/19 06:12 Carbon Dioxide 29 mmol/L (22-30) 08/08/19 06:12 Anion Gap 13 mmol/L 08/08/19 06:12 BUN 24 mg/dL (9-20) H 08/08/19 06:12 Creatinine 0.9 mg/dL (0.8-1.5) 08/08/19 06:12 Estimated GFR > 60 ml/min 08/08/19 06:12 BUN/Creatinine Ratio 27 % 08/08/19 06:12 Glucose 105 mg/dL (75-100) H 08/08/19 06:12 POC Glucose 58 (70-105) L 08/04/19 12:42 Hemoglobin A1c 4.8 % (4-6) 08/04/19 Unknown Lactic Acid 1.70 mmol/L (0.7-2.0) 08/04/19 15:46 Calcium 8.9 mg/dL (8.4-10.2) 08/08/19 06:12 Total Bilirubin 1.30 mg/dL (0.1-1.2) H 08/08/19 06:12 Direct Bilirubin 1.3 mg/dL (0-0.2) H 08/04/19 13:03 Indirect Bilirubin 1.1 mg/dL 08/04/19 13:03 AST 64 units/L (5-40) H 08/08/19 06:12 ALT 210 units/L (7-56) H 08/08/19 06:12 Alkaline Phosphatase 110 units/L (35-129) 08/08/19 06:12 Ammonia 46.0 umol/L (25-60) 08/08/19 09:18 Total Creatine Kinase 231 units/L (55-170) H 08/09/19 10:15 Troponin T < 0.010 ng/mL (0.00-0.029) 08/04/19 13:03 Troponin T < 0.010 ng/mL (0.00-0.029) 08/04/19 13:03 Total Protein 5.9 g/dL (6.3-8.2) L 08/08/19 06:12 Albumin 3.1 g/dL (3.9-5) L 08/08/19 06:12 Albumin/Globulin Ratio 1.1 % 08/08/19 06:12 TSH 1.630 mlU/mL (0.270-4.200) 08/04/19 13:03 Urine Color Jewels (Yellow) 08/04/19 15:43 Urine Turbidity Clear (Clear) 08/04/19 15:43 Urine pH 5.0 (5.0-7.0) 08/04/19 15:43 Ur Specific [place] 1.025 (1.003-1.030) 08/04/19 15:43 Urine Protein 30 mg/dl mg/dL (Negative) 08/04/19 15:43 Urine Glucose (UA) 50 mg/dL (Negative) 08/04/19 15:43 Urine Ketones 20 mg/dL (Negative) 08/04/19 15:43 Urine Blood Lg (Negative) 08/04/19 15:43 Urine Nitrite Neg (Negative) 08/04/19 15:43 Urine Bilirubin Neg (Negative) 08/04/19 15:43 Urine Urobilinogen 4.0 mg/dL (<2.0) 08/04/19 15:43 Ur Leukocyte Esterase Neg (Negative) 08/04/19 15:43 Urine WBC (Auto) 1.0 /HPF (0.0-6.0) 08/04/19 15:43 Urine RBC (Auto) 2.0 /HPF (0.0-6.0) 08/04/19 15:43 U Epithel Cells (Auto) < 1.0 /HPF (0-13.0) 08/04/19 15:43 Urine Bacteria (Auto) 1+ /HPF (Negative) 08/04/19 15:43 Urine Mucus Few /HPF 08/04/19 15:43 Nasal Screen MRSA (PCR) Negative (Negative) 08/05/19 01:00 Salicylates < 0.3 mg/dL (2.8-20.0) L 08/04/19 13:03 Urine Opiates Screen Presumptive negative 08/04/19 15:43 Urine Methadone Screen Presumptive negative 08/04/19 15:43 Acetaminophen < 5.0 ug/mL (10.0-30.0) L 08/04/19 13:03 Ur Barbiturates Screen Presumptive negative 08/04/19 15:43 Valproic Acid 30.6 ug/mL (50-100) L 08/08/19 09:18 Ur Phencyclidine Scrn Presumptive negative 08/04/19 15:43 Ur Amphetamines Screen Presumptive negative 08/04/19 15:43 U Benzodiazepines Scrn Presumptive negative 08/04/19 15:43 Urine Cocaine Screen Presumptive negative 08/04/19 15:43 U Marijuana (THC) Screen Presumptive negative 08/04/19 15:43 Drugs of Abuse Note Disclamer 08/04/19 15:43 Hepatitis A IgM Ab Non-reactive (NonReactive) 08/05/19 17:15 Hep Bs Antigen Non-reactive (Negative) 08/05/19 17:15 Hep B Core IgM Ab Non-reactive (NonReactive) 08/05/19 17:15 Hepatitis C Antibody Non-reactive (NonReactive) 08/05/19 17:15 Microbiology: Microbiology 08/05/19 05:44 Peripheral/Venous Blood Culture - Final NO GROWTH AFTER 5 DAYS 08/05/19 05:25 Peripheral/Venous Blood Culture - Final NO GROWTH AFTER 5 DAYS Arana/IV: Voiding Method Condom Catheter IV Catheter Type [Right INT / Saline Lock Forearm] IV Catheter Type [Left INT / Saline Lock Antecubital] IV Catheter Type [Right INT / Saline Lock Antecubital] Active Medications - Current Medications Current Medications: Generic Name Dose Route Start Last Admin Trade Name Freq PRN Reason Stop Dose Admin Acetaminophen 650 mg 08/04/19 23:41 08/05/19 00:17 Tylenol PO 650 mg Q4H PRN Administration Pain MILD(1-3)/Fever >100.5/ZAVALA Al Hydrox/Mg Hydrox/Simethicone 30 ml 08/04/19 23:32 Alum-Mag Hydrox-Simeth 690-211-32ou/5ml PO Q8H PRN Indigestion Amlodipine Besylate 5 mg 08/05/19 10:00 08/09/19 09:38 Amlodipine PO 5 mg DAILY EVELIA Administration Aripiprazole 20 mg 08/08/19 10:00 08/09/19 09:38 Aripiprazole PO 20 mg QDAY EVELIA Administration Benztropine Mesylate 1 mg 08/05/19 10:00 08/09/19 09:38 Cogentin PO 1 mg DAILY EVELIA Administration Diphenhydramine HCl 50 mg 08/04/19 23:32 Benadryl IV ONCE PRN severe eps or prevention Divalproex Sodium 1,500 mg 08/09/19 22:00 08/09/19 21:[address] PO 1,500 mg HS EVELIA Administration Famotidine 10 mg 08/06/19 22:00 08/09/19 21:48 Pepcid PO 10 mg BID EVELIA Administration Hydromorphone HCl 0.5 mg 08/04/19 23:41 Dilaudid IV Q3H PRN Pain , Severe (7-10) Sodium Chloride 1,000 mls @ 125 mls/hr 08/04/19 23:45 08/09/19 17:40 Nacl 0.45% 1000 Ml IV 125 mls/hr DIRECT EVELIA Administration Lorazepam 1 mg 08/08/19 10:00 08/10/19 04:48 Ativan IM 1 mg Q6H EVELIA Administration Magnesium Hydroxide 30 ml 08/04/19 23:32 Milk Of Magnesia PO Q12H PRN Constipation Ondansetron HCl 4 mg 08/04/19 23:41 Zofran IV Q8H PRN Nausea And Vomiting Oxcarbazepine 300 mg 08/04/19 23:45 08/09/19 21:48 Trileptal PO 300 mg BID EVELIA Administration Oxycodone/Acetaminophen 1 tab 08/04/19 23:41 Percocet 5/325 PO Q6H PRN Pain, Moderate (4-6) Sodium Chloride 10 ml 08/04/19 23:45 08/09/19 21:49 Sodium Chloride Flush Syringe 10 Ml IV 10 ml BID EVELIA Administration Sodium Chloride 10 ml 08/04/19 23:41 Sodium Chloride Flush Syringe 10 Ml IV PRN PRN LINE FLUSH Trazodone HCl 100 mg 08/05/19 22:00 08/09/19 21:48 Desyrel PO 100 mg QHS EVELIA Administration Ziprasidone 20 mg 08/04/19 23:32 08/08/19 02:43 Geodon IM 20 mg Q12H PRN Administration Agitation Nutrition/Malnutrition Assess - Dietary Evaluation Nutrition/Malnutrition Findings: Nutrition Notes Start: 08/05/19 13:02 Freq: Status: Active Protocol: Document 08/09/19 13:26 LM (Rec: 08/09/19 13:30 LM [id number]) Nutrition Notes Initial or Follow up Reassessment Other Pertinent Diagnosis Schizophenia, AMS, Rhabdomyolysis Current Diet cardiac Labs/Tests Reviewed Pertinent Medications NaCl at 125ml/hr Height 5 ft 11 in Weight 100.5 kg [place] Body Weight (kg) 78.18 BMI 30.9 Weight Status Obese Subjective/Other Information Pt no longer nonverbal but has restraints. Per RN notes pt with good PO intake. Burn Absent Trauma Absent Minimum of two criteria No physical signs of malnutrition #1 Nutrition Diagnosis Inadequate oral intake As Evidenced by Signs and Symptoms Pt with increased PO intake per RN Diagnosis Progress(for reassessment Improved documentation) Is patient on ventilator? No Is Patient Ambulatory and/or Out of Bed No REE-([place]-St. Jeor-confined to bed) 2215.008 Kcal/Kg value to use for calculation 19 Approximate Energy Requirements Using 1910 kcal/Kg Calculation Used for Recommendations Kcal/kg Additional Notes Protein: 72-90g (0.8-1g/kg using AdjBW 90kg) Fluid: 1ml/kcal Nutrition Intervention Change Diet Order: Continue Add Supplement/Snack (indicate name/kcal Ensure Enlive daily /protein ) Provides kCal: 350 Provides Protein (gm) 20 Goal #1 Meet at least 75% of energy and protein needs Anticipated Discharge Needs: regular Follow-Up By: 08/11/19 Additional Comments F/U for stable intakes, ONS need
[2019-08-10 09:44] LABS: BUN/Creatinine Ratio 23; Blood Urea Nitrogen 18 mg/dL (9-20); Calcium 8.6 mg/dL (8.4-10.2); Hemolysis Index 5
[2019-08-10] MEDS: FAMOTIDINE 10 MG TAB PO SCH ×2 (10:37→21:48)
[2019-08-10] MEDS: ARIPiprazole 10 MG TAB PO SCH (10:37)
[2019-08-10] MEDS: amLODIPine 5 MG TAB PO SCH (10:37)
[2019-08-10] MEDS: OXcarbazepine 300 MG TAB PO SCH ×2 (10:37→21:48)
[2019-08-10] MEDS: BENZTROPINE 1 MG TAB PO SCH (10:37)
--- NOTE | 2019-08-10 11:40 | Progress Note ---
Subjective - Reason for Consult Consult date: 08/10/19 Reason for consult: AMS, not eating or drinking - Chief Complaint Chief complaint: I reviewed the patient's medical record and the patient's progress was discussed with the nursing staff. The sitter at bedside states that the patient has been agitated and combative. During my interview with the patient this morning, he is lying in bed awake. He is in restraints. A sitter is at bedside. His clothing is disheveled exposing himself. He is speaking today. The patient is more lucid today. He is a/o x 2. He makes fair eye contact. His affect is restricted. He says he's "somewhat depressed" when asked. He denies hallucinations of any kind. The patient states his night "went okay" when asked about how he was sleeping. He asks, "am I speaking normally?" He then asked me, "what is coronavirus or COVID-19? I think I have it." REVIEW OF SYSTEMS Unable to complete due to patient factors MENTAL STATUS EXAMINATION Unable to adequately assess due to patient factors Assessment: Schizoaffective Disorder RECOMMENDATIONS MEDICATIONS: No changes made today Risks, benefits and alternatives of medications discussed with the patient, questions answered and consent obtained from patient. PSYCHOTHERAPY: Supportive psychotherapy provided MEDICAL: Per primary team DELIRIUM PRECAUTIONS: Please re-orient patient frequently, keep lights on during the day, and minimize benzodiazepines and opiates as these medications could worsen patient's confusion. SALESPERSON JEWELRY: Defer to primary DISPOSITION: The patient meets the requirement for acute inpatient treatment. May transfer to acute psychiatric facility once medically clear. FOLLOW-UP: Will continue to follow Thank you for the consult. Please contact with any questions or concerns. Mental Status Exam - Vital signs Last Vital Signs Temp 97.8 F 08/10/19 07:59 Pulse 83 08/09/19 23:52 Resp 17 08/10/19 07:59 BP 129/86 08/10/19 07:59 Pulse Ox 98 08/09/19 23:52
[2019-08-10] MEDS: DIVALPROEX DR 500 MG TAB PO SCH (21:47)
[2019-08-10] MEDS: traZODone 100 MG TAB PO SCH (21:47)
[2019-08-11] MEDS: LORazepam 2 MG/ML VIAL IM SCH ×3 (00:27→22:55)
[2019-08-11] MEDS: SODIUM CHLORIDE 0.45% 1000 ML 1,000 ML IV SCH (04:02)
--- NOTE | 2019-08-11 09:22 | Progress Note ---
Subjective - Reason for Consult Consult date: 08/11/19 Reason for consult: ams, not eating and drinking - Chief Complaint Chief complaint: I reviewed the patient's medical record and the patient's progress was discussed with the nursing staff. The nurse note states the patient has impulsive movement noted. He raises his legs and pulls at restraints. The nurse note also states at 12 midnight patient still restless. Ativan im given in the left deltoid. During my interview with the patient this morning, he is lying in bed awake. He is confused and thinks he's, "somewhere in [place]." He also thinks "Mo Ash is the President." His speech is slightly garbled. The sitter is at bedside and states she removed his restraints and has been redirecting him. The patient states, he's doing "okay, but depressed." When asking the patient why was he depressed, he was unable to tell me. He kept repeating, "I need a cordless phone." The patient denies SI/HI, or hallucinations of any kind. REVIEW OF SYSTEMS Unable to complete due to patient factors MENTAL STATUS EXAMINATION Unable to adequately assess due to patient factors Assessment: Schizoaffective Disorder RECOMMENDATIONS MEDICATIONS: No changes made today Risks, benefits and alternatives of medications discussed with the patient, questions answered and consent obtained from patient. PSYCHOTHERAPY: Supportive psychotherapy provided MEDICAL: Per primary team DELIRIUM PRECAUTIONS: Please re-orient patient frequently, keep lights on during the day, and minimize benzodiazepines and opiates as these medications could worsen patient's confusion. ORTHOTIC PRACTITIONER: Defer to primary DISPOSITION: The patient meets the requirement for acute inpatient treatment. May transfer to acute psychiatric facility once medically clear. FOLLOW-UP: Will continue to follow Thank you for the consult. Please contact with any questions or concerns. Mental Status Exam - Vital signs Last Vital Signs Temp 96.4 F L 08/11/19 08:45 Pulse 91 H 08/11/19 03:09 Resp 18 08/11/19 08:45 BP 127/66 08/11/19 03:09 Pulse Ox 93 08/11/19 03:09
[2019-08-11] MEDS: FAMOTIDINE 10 MG TAB PO SCH ×2 (10:05→22:51)
[2019-08-11] MEDS: BENZTROPINE 1 MG TAB PO SCH (10:05)
[2019-08-11] MEDS: OXcarbazepine 300 MG TAB PO SCH ×2 (10:05→22:51)
[2019-08-11] MEDS: amLODIPine 5 MG TAB PO SCH (10:05)
[2019-08-11] MEDS: ARIPiprazole 10 MG TAB PO SCH (10:05)
[2019-08-11 10:39] LABS: Mean Corpuscular HGB Conc 36 % (32-34); Mean Corpuscular Volume 86 fl (84-94); Platelet Count 182 K/mm3 (140-440); Red Blood Count 5.11 M/mm3 (3.65-5.03); Red Cell Distribution Width 13.4 % (13.2-15.2)
[2019-08-11 10:45] LABS: Hemoglobin 15.8 gm/dl (11.8-15.2)
[2019-08-11 11:01] LABS: Alanine Aminotransferase 125 units/L (7-56); BUN/Creatinine Ratio 19; Blood Urea Nitrogen 15 mg/dL (9-20); Calcium 8.5 mg/dL (8.4-10.2); Hemolysis Index 10
--- NOTE | 2019-08-11 15:44 | Progress Note ---
Assessment and Plan Assessment and plan: 58 years old male with history of schizophrenia -- catatonic type brought to the emergency room from [facility] for evaluation of altered mental status decrease p.o. intake for the last 4 days. Facility staff reported that patient stopped eating and drinking since he got to the facility on Friday, 3 days ago. Patient is alert but not answering any questions. Patient with significant dry mucous membrane. Patient also found to be tachycardic but afebrile. Ms. Radha Desouza -- Her number is [phone]---[id number] patient has been diagnosed with schizoaffective disorder and he has been very depressed recently. Apparently he is allergic to Haldol and causes malignant neuroleptic syndrome. She told me that he almost last time when they gave him this medication. She told me that he is on Trileptal and Abilify. She requested the patient to be transferred to [facility] after he is medically clear. Stable and alert but not talking Able to move all 4 extremities Symptomatically better Patient gets Violent to nursing staff and refused lab today stating that he knows his rights and can refused labs. In my opinion his continual refusal to eat is more to his psych illness rather than an organic medical condition 08/10: He has remained off restraints and is doing well. He is clinically stable for discharge. But awaiting for psych placement. Continue to encourage diet. (1) Encephalopathy acute Current Visit: Yes Status: Acute Plan to address problem: Sec to dehydration and Hypernatremia IV fluids for now Psych consult appreciated Better (2) Hypernatremia Current Visit: Yes Status: Acute Plan to address problem: Half normal saline /D5w Sodium is 150--145 Improved (3) Rhabdomyolysis Current Visit: Yes Status: Acute Qualifiers: Rhabdomyolysis type: non-traumatic Qualified Code(s): M62.82 - Rhabdomyolysis Plan to address problem: IV FLuids Improved Cratinine to near normal level (4) HTN (hypertension) Current Visit: Yes Status: Chronic Qualifiers: Hypertension type: essential hypertension Qualified Code(s): I10 - Essential (primary) hypertension Plan to address problem: Cont antihypertensives (5) Schizoaffective disorder Current Visit: Yes Status: Chronic Qualifiers: Schizoaffective disorder type: depressive Qualified Code(s): F25.1 - Schizoaffective disorder, depressive type Plan to address problem: Cont Ablify (6) Transaminitis Current Visit: Yes Status: Acute Plan to address problem: Check Hepatitis profile Drug induced?? GB ultrasound (7) DVT prophylaxis Current Visit: Yes Status: Acute Plan to address problem: On Heparin and GI prophylaxis (8) Discharge planning issues Current Visit: Yes Status: Acute Plan to address problem: Patient medically cleared for discharge to Psych unit History Interval history: Patient seen and examined, resting comfortable, no further event reported to me overnight. Patient tolerated 50% of breakfast today. Hospitalist Physical - Physical exam Narrative exam: General appearance: Present: no acute distress, well-nourished - EENT Eyes: PERRL, EOM intact ENT: hearing intact, clear oral mucosa Ears: bilateral: normal - Neck Neck: supple, normal ROM - Respiratory Respiratory effort: normal Respiratory: bilateral: CTA - Breasts Breasts: normal - Cardiovascular Heart rate: 78 Rhythm: regular Heart Sounds: Present: S1 & S2. Absent: gallop, rub Extremities: pulses intact, No edema, normal color, Full ROM - Gastrointestinal General gastrointestinal: Present: soft, non-tender, non-distended, normal bowel sounds - Genitourinary Male genitourinary: normal - Integumentary Integumentary: clear, warm, dry - Musculoskeletal Musculoskeletal: 1, strength equal bilaterally - Neurologic Neurologic: moves all extremities - Psychiatric Psychiatric: depressed, other - Constitutional Vitals: Temp Pulse Resp BP Pulse Ox 97.3 F L 78 20 143/79 96 08/11/19 11:51 08/11/19 11:51 08/11/19 11:51 08/11/19 11:51 08/11/19 11:51 General appearance: Present: no acute distress, well-nourished Results - Labs CBC & Chem 7: 08/11/19 10:10 08/11/19 10:10 Labs: Laboratory Last Values WBC 8.5 K/mm3 (4.5-11.0) 08/11/19 10:10 RBC 5.11 M/mm3 (3.65-5.03) H 08/11/19 10:10 Hgb 15.8 gm/dl (11.8-15.2) H 08/11/19 10:10 Hct 44.0 % (35.5-45.6) 08/11/19 10:10 MCV 86 fl (84-94) 08/11/19 10:10 MCH 31 pg (28-32) 08/11/19 10:10 MCHC 36 % (32-34) H 08/11/19 10:10 RDW 13.4 % (13.2-15.2) 08/11/19 10:10 Plt Count 182 K/mm3 (140-440) 08/11/19 10:10 Lymph % (Auto) 16.8 % (13.4-35.0) 08/08/19 06:12 Sauk % (Auto) 5.6 % (0.0-7.3) 08/08/19 06:12 Eos % (Auto) 2.0 % (0.0-4.3) 08/08/19 06:12 Baso % (Auto) 0.3 % (0.0-1.8) 08/08/19 06:12 Lymph # 1.3 K/mm3 (1.2-5.4) 08/08/19 06:12 Sauk # 0.4 K/mm3 (0.0-0.8) 08/08/19 06:12 Eos # 0.2 K/mm3 (0.0-0.4) 08/08/19 06:12 Baso # 0.0 K/mm3 (0.0-0.1) 08/08/19 06:12 Seg Neutrophils % 75.3 % (40.0-70.0) H 08/08/19 06:12 Seg Neutrophils # 5.6 K/mm3 (1.8-7.7) 08/08/19 06:12 PT 14.7 Sec. (12.2-14.9) 08/04/19 13:03 INR 1.14 (0.87-1.13) H 08/04/19 13:03 APTT 24.9 Sec. (24.2-36.6) 08/04/19 13:03 Sodium 140 mmol/L (137-145) 08/11/19 10:10 Potassium 3.8 mmol/L (3.6-5.0) 08/11/19 10:10 Chloride 104.4 mmol/L (98-107) 08/11/19 10:10 Carbon Dioxide 23 mmol/L (22-30) 08/11/19 10:10 Anion Gap 16 mmol/L 08/11/19 10:10 BUN 15 mg/dL (9-20) 08/11/19 10:10 Creatinine 0.8 mg/dL (0.8-1.5) 08/11/19 10:10 Estimated GFR > 60 ml/min 08/11/19 10:10 BUN/Creatinine Ratio 19 % 08/11/19 10:10 Glucose 103 mg/dL (75-100) H 08/11/19 10:10 POC Glucose 58 (70-105) L 08/04/19 12:42 Hemoglobin A1c 4.8 % (4-6) 08/04/19 Unknown Lactic Acid 1.70 mmol/L (0.7-2.0) 08/04/19 15:46 Calcium 8.5 mg/dL (8.4-10.2) 08/11/19 10:10 Total Bilirubin 1.00 mg/dL (0.1-1.2) 08/11/19 10:10 Direct Bilirubin 1.3 mg/dL (0-0.2) H 08/04/19 13:03 Indirect Bilirubin 1.1 mg/dL 08/04/19 13:03 AST 38 units/L (5-40) 08/11/19 10:10 ALT 125 units/L (7-56) H 08/11/19 10:10 Alkaline Phosphatase 110 units/L (35-129) 08/11/19 10:10 Ammonia 46.0 umol/L (25-60) 08/08/19 09:18 Total Creatine Kinase 205 units/L (55-170) H 08/10/19 16:54 Troponin T < 0.010 ng/mL (0.00-0.029) 08/04/19 13:03 Troponin T < 0.010 ng/mL (0.00-0.029) 08/04/19 13:03 Total Protein 5.3 g/dL (6.3-8.2) L 08/11/19 10:10 Albumin 3.0 g/dL (3.9-5) L 08/11/19 10:10 Albumin/Globulin Ratio 1.3 % 08/11/19 10:10 TSH 1.630 mlU/mL (0.270-4.200) 08/04/19 13:03 Urine Color Jewels (Yellow) 08/04/19 15:43 Urine Turbidity Clear (Clear) 08/04/19 15:43 Urine pH 5.0 (5.0-7.0) 08/04/19 15:43 Ur Specific Dupree 1.025 (1.003-1.030) 08/04/19 15:43 Urine Protein 30 mg/dl mg/dL (Negative) 08/04/19 15:43 Urine Glucose (UA) 50 mg/dL (Negative) 08/04/19 15:43 Urine Ketones 20 mg/dL (Negative) 08/04/19 15:43 Urine Blood Lg (Negative) 08/04/19 15:43 Urine Nitrite Neg (Negative) 08/04/19 15:43 Urine Bilirubin Neg (Negative) 08/04/19 15:43 Urine Urobilinogen 4.0 mg/dL (<2.0) 08/04/19 15:43 Ur Leukocyte Esterase Neg (Negative) 08/04/19 15:43 Urine WBC (Auto) 1.0 /HPF (0.0-6.0) 08/04/19 15:43 Urine RBC (Auto) 2.0 /HPF (0.0-6.0) 08/04/19 15:43 U Epithel Cells (Auto) < 1.0 /HPF (0-13.0) 08/04/19 15:43 Urine Bacteria (Auto) 1+ /HPF (Negative) 08/04/19 15:43 Urine Mucus Few /HPF 08/04/19 15:43 Nasal Screen MRSA (PCR) Negative (Negative) 08/05/19 01:00 Salicylates < 0.3 mg/dL (2.8-20.0) L 08/04/19 13:03 Urine Opiates Screen Presumptive negative 08/04/19 15:43 Urine Methadone Screen Presumptive negative 08/04/19 15:43 Acetaminophen < 5.0 ug/mL (10.0-30.0) L 08/04/19 13:03 Ur Barbiturates Screen Presumptive negative 08/04/19 15:43 Valproic Acid 30.6 ug/mL (50-100) L 08/08/19 09:18 Ur Phencyclidine Scrn Presumptive negative 08/04/19 15:43 Ur Amphetamines Screen Presumptive negative 08/04/19 15:43 U Benzodiazepines Scrn Presumptive negative 05/06/20 15:43 Urine Cocaine Screen Presumptive negative 08/04/19 15:43 U Marijuana (THC) Screen Presumptive negative 08/04/19 15:43 Drugs of Abuse Note Disclamer 08/04/19 15:43 Hepatitis A IgM Ab Non-reactive (NonReactive) 08/05/19 17:15 Hep Bs Antigen Non-reactive (Negative) 08/05/19 17:15 Hep B Core IgM Ab Non-reactive (NonReactive) 08/05/19 17:15 Hepatitis C Antibody Non-reactive (NonReactive) 08/05/19 17:15 Arana/IV: Voiding Method Incontinent IV Catheter Type [Right INT / Saline Lock Forearm] IV Catheter Type [Left INT / Saline Lock Antecubital] IV Catheter Type [Right INT / Saline Lock Antecubital] Active Medications - Current Medications Current Medications: Generic Name Dose Route Start Last Admin Trade Name Freq PRN Reason Stop Dose Admin Acetaminophen 650 mg 08/04/19 23:41 08/05/19 00:17 Tylenol PO 650 mg Q4H PRN Administration Pain MILD(1-3)/Fever >100.5/ZAVALA Al Hydrox/Mg Hydrox/Simethicone 30 ml 08/04/19 23:32 Alum-Mag Hydrox-Simeth 242-167-33cm/5ml PO Q8H PRN Indigestion Amlodipine Besylate 5 mg 08/05/19 10:00 08/11/19 10:05 Amlodipine PO 5 mg DAILY EVELIA Administration Aripiprazole 20 mg 08/08/19 10:00 08/11/19 10:05 Aripiprazole PO 20 mg QDAY EVELIA Administration Benztropine Mesylate 1 mg 08/05/19 10:00 08/11/19 10:05 Cogentin PO 1 mg DAILY EVELIA Administration Diphenhydramine HCl 50 mg 08/04/19 23:32 Benadryl IV ONCE PRN severe eps or prevention Divalproex Sodium 1,500 mg 08/09/19 22:00 08/10/19 21:[address] PO 1,500 mg HS EVELIA Administration Famotidine 10 mg 08/06/19 22:00 08/11/19 10:05 Pepcid PO 10 mg BID EVELIA Administration Hydromorphone HCl 0.5 mg 08/04/19 23:41 Dilaudid IV Q3H PRN Pain , Severe (7-10) Sodium Chloride 1,000 mls @ 125 mls/hr 08/04/19 23:45 08/11/19 04:02 Nacl 0.45% 1000 Ml IV 125 mls/hr DIRECT EVELIA Administration Lorazepam 1 mg 08/08/19 10:00 08/11/19 10:06 Ativan IM 1 mg Q6H EVELIA Administration Magnesium Hydroxide 30 ml 08/04/19 23:32 Milk Of Magnesia PO Q12H PRN Constipation Ondansetron HCl 4 mg 08/04/19 23:41 Zofran IV Q8H PRN Nausea And Vomiting Oxcarbazepine 300 mg 08/04/19 23:45 08/11/19 10:05 Trileptal PO 300 mg BID EVELIA Administration Oxycodone/Acetaminophen 1 tab 08/04/19 23:41 Percocet 5/325 PO Q6H PRN Pain, Moderate (4-6) Sodium Chloride 10 ml 08/04/19 23:45 08/10/19 21:48 Sodium Chloride Flush Syringe 10 Ml IV 10 ml BID EVELIA Administration Sodium Chloride 10 ml 08/04/19 23:41 Sodium Chloride Flush Syringe 10 Ml IV PRN PRN LINE FLUSH Trazodone HCl 100 mg 08/05/19 22:00 08/10/19 21:47 Desyrel PO 100 mg QHS EVELIA Administration Ziprasidone 20 mg 08/04/19 23:32 08/08/19 02:43 Geodon IM 20 mg Q12H PRN Administration Agitation Nutrition/Malnutrition Assess - Dietary Evaluation Nutrition/Malnutrition Findings: Nutrition Notes Start: 08/05/19 13 :02 Freq: Status: Active Protocol: Document 08/09/19 13:26 LM (Rec: 08/09/19 13:30 LM [id number]) Nutrition Notes Initial or Follow up Reassessment Other Pertinent Diagnosis Schizophenia, AMS, Rhabdomyolysis Current Diet cardiac Labs/Tests Reviewed Pertinent Medications NaCl at 125ml/hr Height 5 ft 11 in Weight 100.5 kg Logan Body Weight (kg) 78.18 BMI 30.9 Weight Status Obese Subjective/Other Information Pt no longer nonverbal but has restraints. Per RN notes pt with good PO intake. Burn Absent Trauma Absent Minimum of two criteria No physical signs of malnutrition #1 Nutrition Diagnosis Inadequate oral intake As Evidenced by Signs and Symptoms Pt with increased PO intake per RN Diagnosis Progress(for reassessment Improved documentation) Is patient on ventilator? No Is Patient Ambulatory and/or Out of Bed No REE-([place] [facility]-confined to bed) 2215.008 Kcal/Kg value to use for calculation 19 Approximate Energy Requirements Using 1910 kcal/Kg Calculation Used for Recommendations Kcal/kg Additional Notes Protein: 72-90g (0.8-1g/kg using AdjBW 90kg) Fluid: 1ml/kcal Nutrition Intervention Change Diet Order: Continue Add Supplement/Snack (indicate name/kcal Ensure Enlive daily /protein ) Provides kCal: 350 Provides Protein (gm) 20 Goal #1 Meet at least 75% of energy and protein needs Anticipated Discharge Needs: regular Follow-Up By: 08/11/19 Additional Comments F/U for stable intakes, ONS need
[2019-08-11] MEDS: traZODone 100 MG TAB PO SCH (22:51)
[2019-08-11] MEDS: DIVALPROEX DR 500 MG TAB PO SCH (22:51)
[2019-08-12] MEDS: SODIUM CHLORIDE 0.45% 1000 ML 1,000 ML IV SCH ×2 (04:01→11:49)
[2019-08-12] MEDS: LORazepam 2 MG/ML VIAL IM SCH ×2 (04:02→11:49)
--- NOTE | 2019-08-12 09:42 | Progress Note ---
Subjective - Reason for Consult Consult date: 08/12/19 Reason for consult: AMS, not eating/drinking - Chief Complaint Chief complaint: I reviewed the patient's medical record and the patient's progress was discussed with the nursing staff. The nurse note states the patient became agitated, hallucinating and combative. He was trying to get oob, fighting staff and kicking out. The int and ex cath pulled out/off. schedule atian given. 4pt restraints applied. I attempted to interview the patient this morning, he is lying bed. Somnolent. He is 4-point restraints. A sitter is at bedside. I spoke with the patient's spouse, Radha Desouza, REVIEW OF SYSTEMS Unable to complete due to patient factors MENTAL STATUS EXAMINATION Unable to adequately assess due to patient factors Assessment: Schizoaffective Disorder RECOMMENDATIONS MEDICATIONS: D/c Trileptal 300mg po BID D/c abilify 20mg po daily Start Risperidone 2mg po BID Increase Lorazepam 2mg IM q6h Change Depacon 500mg IV q8h Risks, benefits and alternatives of medications discussed with the patient, questions answered and consent obtained from patient. PSYCHOTHERAPY: Supportive psychotherapy provided MEDICAL: Per primary team DELIRIUM PRECAUTIONS: Please re-orient patient frequently, keep lights on during the day, and minimize benzodiazepines and opiates as these medications could worsen patient's confusion. FLUID DESIGNER: Defer to primary DISPOSITION: The patient meets the requirement for acute inpatient psychiatric treatment. He may transfer to [facility] once medically clear. FOLLOW-UP: Will continue to follow Thank you for the consult. Please contact with any questions or concerns. Mental Status Exam - Vital signs Last Vital Signs Temp 96.2 F L 08/12/19 08:52 Pulse 83 08/12/19 08:52 Resp 17 08/12/19 08:52 BP 143/82 08/12/19 08:52 Pulse Ox 97 08/12/19 08:52
[2019-08-12] MEDS: ARIPiprazole 10 MG TAB PO SCH (09:47)
[2019-08-12] MEDS: amLODIPine 5 MG TAB PO SCH (09:47)
[2019-08-12] MEDS: FAMOTIDINE 10 MG TAB PO SCH (09:47)
[2019-08-12] MEDS: BENZTROPINE 1 MG TAB PO SCH (09:47)
[2019-08-12] MEDS: OXcarbazepine 300 MG TAB PO SCH (09:47)
[2019-08-12] MEDS ORDERED: LORazepam 2 MG/ML VIAL IM SCH (10:30)
[2019-08-12] MEDS ORDERED: risperiDONE 1 MG TAB PO SCH ×2 (11:00)
[2019-08-12] MEDS ORDERED: VALPROATE SODIUM 500 MG in SODIUM CHLORIDE 0.9% 100 ML IV SCH (11:00)
--- NOTE | 2019-08-12 15:32 | Discharge Summary ---
Providers - Providers Date of Admission: 08/04/19 15:00 Attending physician: REGGIE CORDERO MD 08/04/19 23:41 Consult to Physician [CONS] Routine Comment: Consulting Provider: GIANCARLO LEVY Physician Instructions: Reason For Exam: schizophrenia 08/05/19 09:41 Consult to Mental Health [CONS] Routine Reason For Exam: consult Mental health Primary care physician: [facility] Hospitalization Reason for admission: Acute metabolic encephalopathy Condition: Stable Hospital course: 58 years old male with history of schizophrenia -- catatonic type brought to the emergency room from [facility] for evaluation of altered mental status decrease p.o. intake for the last 4 days. Facility staff reported that patient stopped eating and drinking since he got to the facility on Friday, 3 days ago. Patient is alert but not answering any questions. Patient with significant dry mucous membrane. Patient also found to be tachycardic but afebrile. Ms. Radha Desouza -- Her number is [phone]---[id number] patient has been diagnosed with schizoaffective disorder and he has been very depressed recently. Apparently he is allergic to Haldol and causes malignant neuroleptic syndrome. She told me that he almost last time when they gave him this medication. She told me that he is on Trileptal and Abilify. She requested the patient to be transferred to [facility] after he is medically clear. Stable and alert but not talking Able to move all 4 extremities Symptomatically better Patient gets Violent to nursing staff and refused lab today stating that he knows his rights and can refused labs. In my opinion his continual refusal to eat is more to his psych illness rather than an organic medical condition 08/10: He has remained off restraints and is doing well. He is clinically stable for discharge. But awaiting for psych placement. Continue to encourage diet. 08/11: Patient clinically stable today intermittent agitation overnight tolerating diet. Cleared for discharge to inpatient psych (1) acute metabolic encephalopathy Current Visit: Yes Status: Acute Plan to address problem: Sec to dehydration and Hypernatremia IV fluids for now Psych consult appreciated Better (2) Hypernatremia Current Visit: Yes Status: Acute Plan to address problem: Treated with half normal saline /D5w Resolved (3) Rhabdomyolysis Current Visit: Yes Status: Acute Qualifiers: Rhabdomyolysis type: non-traumatic Qualified Code(s): M62.82 - Rhabdomyolysis Plan to address problem: Improved following IV fluid Improved Creatinine to near normal level (4) HTN (hypertension) Current Visit: Yes Status: Chronic Qualifiers: Hypertension type: essential hypertension Qualified Code(s): I10 - Essential (primary) hypertension Plan to address problem: Cont antihypertensives (5) Schizoaffective disorder Current Visit: Yes Status: Chronic Qualifiers: Schizoaffective disorder type: depressive Qualified Code(s): F25.1 - Schizoaffective disorder, depressive type Plan to address problem: Cont Ablify (6) Transaminitis Current Visit: Yes Status: Acute Plan to address problem: Resolved likely drug-induced (7) SIRS No evidence of sepsis Disposition: DC/TX-65 PSY HOSP/PSY UNIT Time spent for discharge: 35-minute Core Measure Documentation - Palliative Care Palliative Care/ Comfort Measures: Not Applicable - Core Measures Any of the following diagnoses?: none Exam - Physical Exam Narrative exam: General appearance: Present: no acute distress, well-nourished - EENT Eyes: PERRL, EOM intact ENT: hearing intact, clear oral mucosa Ears: bilateral: normal - Neck Neck: supple, normal ROM - Respiratory Respiratory effort: normal Respiratory: bilateral: CTA - Breasts Breasts: normal - Cardiovascular Heart rate: 78 Rhythm: regular Heart Sounds: Present: S1 & S2. Absent: gallop, rub Extremities: pulses intact, No edema, normal color, Full ROM - Gastrointestinal General gastrointestinal: Present: soft, non-tender, non-distended, normal bowel sounds - Genitourinary Male genitourinary: normal - Integumentary Integumentary: clear, warm, dry - Musculoskeletal Musculoskeletal: 1, strength equal bilaterally - Neurologic Neurologic: moves all extremities - Psychiatric Psychiatric: depressed, other - Constitutional Vitals: Temp Pulse Resp BP Pulse Ox 97.0 F L 101 H 17 151/96 95 08/12/19 12:20 08/12/19 12:20 08/12/19 12:20 08/12/19 12:20 08/12/19 12:20 Plan Activity: advance as tolerated, fall precautions Diet: low fat Follow up with: ROBINA VARGAS MD [Primary Care Provider] - 3-5 Days CHANTAL MARTINEZ MD [Staff Physician] - 7 Days Prescriptions: Valproic Acid [Depakene] 500 mg PO Q8HR #30 capsule
[2019-08-12 15:53] VITALS: BP 131/93
[2019-08-12] MEDS ORDERED: hydrALAZINE 20 MG/1 ML INJ IV ONE (16:08)
== END 2019-08-12 16:41 | DRG 640 ==
LOC: ED 12:20 → 4A 15:00
PROVIDERS: ADMIT Internal Medicine; ATTEND Internal Medicine
DX: E87.0 Hyperosmolality and hypernatremia (principal); G93.41 Metabolic encephalopathy; M62.82 Rhabdomyolysis; R65.10 Systemic inflammatory response syndrome (SIRS) of non-infectious origin without acute organ dysfunction; E16.2 Hypoglycemia, unspecified; E86.0 Dehydration; F25.1 Schizoaffective disorder, depressive type; I10 Essential (primary) hypertension; F06.1 Catatonic disorder due to known physiological condition; F94.0 Selective mutism; Z88.8 Allergy status to other drugs, medicaments and biological substances; Z82.49 Family history of ischemic heart disease and other diseases of the circulatory system
CPT/HCPCS: 36415; 70450; 71045; 80048; 80053; 80074; 80076; 80164; 80307; 80320; 81001; 82140; 82550; 82962; 83036; 84443; 84484; 85025; 85027; 85610; 85730; 87040; 87641; 93005; G0378; G0480; J0360; J2060; J3486; J7030; J7042

== ENCOUNTER 2019-08-12 16:37 | Inpatient (IN) | payer MEDICARE ==
[2019-08-12] MEDS ORDERED: MAGNESIUM HYDROXIDE (MOM) ORAL LIQD UDC PO PRN (18:00)
[2019-08-12 21:28] LABS: Basophils % (Auto) 0.2 % (0.0-1.8); Eosinophils # (Auto) 0.1 K/mm3 (0.0-0.4); Hematocrit 45.3 % (35.5-45.6); Hemoglobin 15.9 gm/dl (11.8-15.2); Lymphocytes % (Auto) 11.9 % (13.4-35.0); Mean Corpuscular HGB Conc 35 % (32-34); Mean Corpuscular Volume 87 fl (84-94); Monocytes # (Auto) 0.6 K/mm3 (0.0-0.8); Monocytes % (Auto) 6.2 % (0.0-7.3); Platelet Count 187 K/mm3 (140-440); Red Blood Count 5.23 M/mm3 (3.65-5.03); Red Cell Distribution Width 13.4 % (13.2-15.2)
[2019-08-12 21:38] LABS: Alanine Aminotransferase 101 units/L (7-56); BUN/Creatinine Ratio 16; Blood Urea Nitrogen 16 mg/dL (9-20); Calcium 8.5 mg/dL (8.4-10.2); Chol/HDL Ratio 4.94 %; HDL Cholesterol 36 mg/dL (40-59); Hemolysis Index 10; LDL Cholesterol,Direct 111 mg/dL (50-130)
[2019-08-12] MEDS ORDERED: VALPROIC ACID 250 MG CAP PO SCH (22:00)
[2019-08-12] MEDS: traZODone 50 MG TAB PO SCH (22:02)
[2019-08-12] MEDS: risperiDONE 1 MG TAB PO SCH (22:02)
[2019-08-13] MEDS: VALPROIC ACID 250 MG CAP PO SCH ×3 (06:35→22:01)
[2019-08-13] MEDS: BENZTROPINE 1 MG TAB PO SCH (10:32)
[2019-08-13] MEDS: amLODIPine 5 MG TAB PO SCH (10:32)
[2019-08-13] MEDS: risperiDONE 1 MG TAB PO SCH ×2 (10:32→22:00)
--- NOTE | 2019-08-13 10:39 | History and Physical Report ---
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 Patient brought to the emergency room from [facility] for evaluation of altered mental status decrease p.o. intake for the last 4 days. Facility staff reported that patient stopped eating and drinking since he got to the facility on Friday, 3 days ago. Patient is alert but not answering any questions. Patient with significant dry mucous membrane. Patient also found to be tachycardic but afebrile. I spoke to patient Ms. Radha Desouza. Her number is [phone]. She informed me that her has been diagnosed with schizoaffective disorder and he has been very depressed recently. She told me that he followed by Dr. Ordaz, psychiatrist. Her number is [phone]. She stated that he is allergic to Haldol and its family because it is because him to have malignant neuroleptic syndrome. She told me that he almost last time when they gave him this medication. She told me that he is on Trileptal and Abilify. She requested the patient to be transferred to [facility] after he is medically clear. Psych HPI Patient seen this AM, having breakfast by self and interacting with other peers. Patient responded to his name when called, says he thinks its morning when asked about time of day and reports breakfast is okay. Patient then began uttering words about dane vega. PAST PSYCHIATRIC HISTORY: Schizophrenia Diagnoses: Schizophrenia Suicide attempts or Self-harm behavior: Not assessable Prior psychiatric hospitalizations: yes Substance Abuse history: Not assessable Previous psychiatric medications tried: Trileptal and abilify Outpatient treatment: Not assessable PAST MEDICAL HISTORY: Not assessable Family Psychiatric History None reported or documented SOCIAL HISTORY Marital Status: (based off notes) Living Arrangements: With Employment Status: Unknown Access to guns/weapons: Not assessable Education: Not assessable History of Abuse: Not assessable Legal History: Not assessable REVIEW OF SYSTEMS ROS cannot be reliably obtained from the patient due to mental status MENTAL STATUS EXAMINATION General Appearance and Behavior: Age appropriate, good hygiene, wearing appropriate clothes, minimal eye contact. Cooperation: Cooperative Psychomotor Behavior:unremarkable and within normal limits Mood: Good Affect and affective range: congruent with mood Thought Process: Not assessable Thought Content: Logical Speech: Normal rate but low volume Intellectual Functioning: Fair Suicidal Ideation: Not assessable Homicidal Ideation: Not assessable Impulse Control: Impaired Insight and Judgment: Fair insigfht and judgement Memory: Poor Attention: Divided attention intact and Divided attention impaired Orientation: Alert, and oriented to time only Assessment and Plan - Psychiatric problem (1) Schizophrenia with prominent negative symptoms Current Visit: Yes Status: Acute (2) Selective mutism Current Visit: Yes Status: Acute Treatment Plan Patient will be admitted for inpatient psychiatric evaluation, medication adjustment and close monitoring The patient's behavior, mood, sleep and appetite will be closely monitored. Patient will be enrolled in individual and group therapeutic sessions and encouraged to attend. Patient will be provided with a safe and structured environment. Patient's physical health needs will be addressed by the Hospitalist. Hospitalist Consulted Labs including CBC, CMP, Lipid profile and Hemoglobin A1C ordered Social Assessment will be completed and the Bookmaker Map will work with patient and family to ensure a suitable and safe disposition Medication adjustment will be made as clinically indicated Usual Wellness Zoroastrianism/Preservation: - Start Trazodone 50 mg po QHS & 50 mg po QHS PRN between 10 PM & 2 AM for insomnia - Start [place]-3 for brain health, reduce impulsivity, and as adjunctive treatment for mood disorder, continue upon discharge given overall benefits. - Start B1 prophylaxis with 200 mg po for 5 days The patient agreed on the treatment plan, understood the risk, benefit, alternative treatment, potential consequence of no treatment, and gave informed consent. This is an acknowledgement statement that PEACE DESOUZA is a 58 year old M who requires inpatient psychiatric admission for treatment which could reasonably be expected to improve the patient's condition for Estimated period of time patient will need to remain in the hospital: [7 ] Plan for post-hospital care: [ outpatient] Legal Status: Other Reaction to Hospitalization: Accepting Medications and Allergies Allergies Allergy/AdvReac Type Severity Reaction Status Date / Time haloperidol [From Haldol] Allergy Unknown Verified 08/04/19 14:27 Home Medications Medication Instructions Recorded Confirmed Last Taken Type Acetaminophen [Tylenol] 325 mg PO Q4HR PRN 08/04/19 08/12/19 Unknown History Amlodipine Besylate [Norvasc] 5 mg PO DAILY 08/04/19 08/12/19 Unknown History Benztropine [Cogentin] 1 tab PO DAILY 08/04/19 08/12/19 Unknown History Magnesium Hydroxide [Milk of 30 ml PO Q8H PRN 08/04/19 08/12/19 Unknown History Magnesia] diphenhydrAMINE [Benadryl CAP] 50 mg PO Q4HR PRN 08/04/19 08/12/19 Unknown History traZODone [Desyrel] 100 mg PO QHS 08/04/19 08/12/[address] 1,000 mg PO QHS 08/12/19 08/12/19 Unknown History OXcarbazepine [Trileptal] 300 mg PO BID 08/12/19 08/12/19 Unknown History Prolixin 5 mg PO Q4H 08/12/19 08/12/19 Unknown History ZyPREXA 5 mg PO QA 08/12/19 08/12/19 Unknown History ZyPREXA 15 mg PO QHS 08/12/19 08/12/19 Unknown History Active Meds: Active Medications Amlodipine Besylate (Amlodipine) 5 mg PO DAILY [facility] Last Admin: 08/13/19 10:32 Dose: 5 mg Documented by: Benztropine Mesylate (Cogentin) 1 mg PO DAILY [facility] Last Admin: 08/13/19 10:32 Dose: 1 mg Documented by: Magnesium Hydroxide (Milk Of Magnesia) 30 ml PO Q8H PRN PRN Reason: Constipation Risperidone (Risperdal) 2 mg PO BID [facility] Last Admin: 08/13/19 10:32 Dose: 2 mg Documented by: Trazodone HCl (Desyrel) 50 mg PO QHS [facility] Last Admin: 08/12/19 22:02 Dose: 50 mg Documented by: Valproic Acid (Depakene) 500 mg PO Q8H [facility] Last Admin: 08/13/19 06:35 Dose: 500 mg Documented by: Ziprasidone (Geodon) 20 mg IM Q6H PRN PRN Reason: Agitation Results - Results Labs/Vitals: Laboratory Last Values WBC 8.8 K/mm3 (4.5-11.0) 08/12/19 21:05 RBC 5.23 M/mm3 (3.65-5.03) H 08/12/19 21:05 Hgb 15.9 gm/dl (11.8-15.2) H 08/12/19 21:05 Hct 45.3 % (35.5-45.6) 08/12/19 21:05 MCV 87 fl (84-94) 08/12/19 21:05 MCH 31 pg (28-32) 08/12/19 21:05 MCHC 35 % (32-34) H 08/12/19 21:05 RDW 13.4 % (13.2-15.2) 08/12/19 21:05 Plt Count 187 K/mm3 (140-440) 08/12/19 21:05 Lymph % (Auto) 11.9 % (13.4-35.0) L 08/12/19 21:05 [place] % (Auto) 6.2 % (0.0-7.3) 08/12/19 21:05 Eos % (Auto) 1.0 % (0.0-4.3) 08/12/19 21:05 Baso % (Auto) 0.2 % (0.0-1.8) 08/12/19 21:05 Lymph # 1.0 K/mm3 (1.2-5.4) L 08/12/19 21:05 [place] # 0.6 K/mm3 (0.0-0.8) 08/12/19 21:05 Eos # 0.1 K/mm3 (0.0-0.4) 08/12/19 21:05 Baso # 0.0 K/mm3 (0.0-0.1) 08/12/19 21:05 Seg Neutrophils % 80.7 % (40.0-70.0) H 08/12/19 21:05 Seg Neutrophils # 7.1 K/mm3 (1.8-7.7) 08/12/19 21:05 Sodium 138 mmol/L (137-145) 08/12/19 21:05 Potassium 3.7 mmol/L (3.6-5.0) 08/12/19 21:05 Chloride 103.8 mmol/L (98-107) 08/12/19 21:05 Carbon Dioxide 21 mmol/L (22-30) L 08/12/19 21:05 Anion Gap 17 mmol/L 08/12/19 21:05 BUN 16 mg/dL (9-20) 08/12/19 21:05 Creatinine 1.0 mg/dL (0.8-1.5) 08/12/19 21:05 Estimated GFR > 60 ml/min 08/12/19 21:05 BUN/Creatinine Ratio 16 % 08/12/19 21:05 Glucose 90 mg/dL (75-100) 08/12/19 21:05 Hemoglobin A1c 5.0 % (4-6) 08/12/19 21:05 Calcium 8.5 mg/dL (8.4-10.2) 08/12/19 21:05 Total Bilirubin 0.90 mg/dL (0.1-1.2) 08/12/19 21:05 AST 39 units/L (5-40) 08/12/19 21:05 ALT 101 units/L (7-56) H 08/12/19 21:05 Alkaline Phosphatase 101 units/L (35-129) 08/12/19 21:05 Total Protein 5.7 g/dL (6.3-8.2) L 08/12/19 21:05 Albumin 3.0 g/dL (3.9-5) L 08/12/19 21:05 Albumin/Globulin Ratio 1.1 % 08/12/19 21:05 Triglycerides 123 mg/dL (2-149) 08/12/19 21:05 Cholesterol 178 mg/dL (50-199) 08/12/19 21:05 LDL Cholesterol Direct 111 mg/dL (50-130) 08/12/19 21:05 HDL Cholesterol 36 mg/dL (40-59) L 08/12/19 21:05 Cholesterol/HDL Ratio 4.94 % 08/12/19 21:05 TSH 2.460 mlU/mL (0.270-4.200) 08/12/19 21:05 Last Vital Signs Temp 97.9 F 08/13/19 10:27 Pulse 109 H 08/13/19 10:32 Resp 18 08/13/19 10:27 BP 102/70 08/13/19 10:32 Pulse Ox 96 08/13/19 10:27 Physical Examination - Constitutional Vitals: Vital Signs Temp Pulse Resp BP Pulse Ox 97.9 F 109 H 18 102/70 96 08/13/19 10:27 08/13/19 10:32 08/13/19 10:27 08/13/19 10:32 08/13/19 10:27 Temperature -Last 24 Hours Temperature 97.9 F Temperature 98.3 F Mental Status Exam - Vital signs Last Vital Signs Temp 97.9 F 08/13/19 10:27 Pulse 109 H 08/13/19 10:32 Resp 18 08/13/19 10:27 BP 102/70 08/13/19 10:32 Pulse Ox 96 08/13/19 10:27 Assessment and Plan - Psychiatric problem (1) Schizophrenia with prominent negative symptoms Current Visit: No Status: Acute (2) Selective mutism Current Visit: No Status: Acute Physician Certification - Certification Statement Physician Certification Statement: This is an acknowledgement statement that PEACE DESOUZA is a 58 year old M who requires inpatient psychiatric admission for treatment which could reasonably be expected to improve the patient's condition for Estimated period of time patient will need to remain in the hospital: [ ] Plan for post-hospital care: [ ]
[2019-08-13] MEDS: OMEGA-3 FATTY ACIDS/FISH OIL 1 GRAM CAP PO SCH ×2 (12:00→22:00)
--- NOTE | 2019-08-13 13:56 | Consultation ---
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 Patient brought to the emergency room from [facility] for evaluation of altered mental status decrease p.o. intake for the last 4 days. Facility staff reported that patient stopped eating and drinking since he got to the facility on Friday, 3 days ago. Patient is alert but not answering any questions. Patient with significant dry mucous membrane. Patient also found to be tachycardic but afebrile. Consultations for medical management. No past medical history documented in the chart. Patient reportedly has some remote history of malignant neuroleptic syndrome. No reports of chest pain or shortness of breath. Past History Past Medical History: No medical history Past Surgical History: No surgical history Social history: no significant social history Family history: no significant family history Medications and Allergies Allergies Allergy/AdvReac Type Severity Reaction Status Date / Time haloperidol [From Haldol] Allergy Unknown Verified 08/04/19 14:27 Home Medications Medication Instructions Recorded Confirmed Last Taken Type Acetaminophen [Tylenol] 325 mg PO Q4HR PRN 08/04/19 08/12/19 Unknown History Amlodipine Besylate [Norvasc] 5 mg PO DAILY 08/04/19 08/12/19 Unknown History Benztropine [Cogentin] 1 tab PO DAILY 08/04/19 08/12/19 Unknown History Magnesium Hydroxide [Milk of 30 ml PO Q8H PRN 08/04/19 08/12/19 Unknown History Magnesia] diphenhydrAMINE [Benadryl CAP] 50 mg PO Q4HR PRN 08/04/19 08/12/19 Unknown History traZODone [Desyrel] 100 mg PO QHS 08/04/19 08/12/[address] 1,000 mg PO QHS 08/12/19 08/12/19 Unknown History OXcarbazepine [Trileptal] 300 mg PO BID 08/12/19 08/12/19 Unknown History Prolixin 5 mg PO Q4H 08/12/19 08/12/19 Unknown History ZyPREXA 5 mg PO QAM 08/12/19 08/12/19 Unknown History ZyPREXA 15 mg PO QHS 05/14/20 05/14/20 Unknown History Active Meds: Active Medications Amlodipine Besylate (Amlodipine) 5 mg PO DAILY [facility] Last Admin: 08/13/19 10:32 Dose: 5 mg Documented by: Benztropine Mesylate (Cogentin) 1 mg PO DAILY [facility] Last Admin: 08/13/19 10:32 Dose: 1 mg Documented by: Fish Oil (Fish Oil) 2,000 mg PO BID [facility] Magnesium Hydroxide (Milk Of Magnesia) 30 ml PO Q8H PRN PRN Reason: Constipation Risperidone (Risperdal) 2 mg PO BID [facility] Last Admin: 08/13/19 10:32 Dose: 2 mg Documented by: Trazodone HCl (Desyrel) 50 mg PO QHS [facility] Last Admin: 08/12/19 22:02 Dose: 50 mg Documented by: Valproic Acid (Depakene) 500 mg PO Q8H [facility] Last Admin: 08/13/19 06:35 Dose: 500 mg Documented by: Ziprasidone (Geodon) 20 mg IM Q6H PRN PRN Reason: Agitation Review of Systems All systems: negative Exam - Constitutional Vitals: Temp Pulse Resp BP Pulse Ox 97.9 F 109 H 18 102/70 96 08/13/19 10:27 08/13/19 10:32 08/13/19 10:27 08/13/19 10:32 08/13/19 10:27 General appearance: Present: no acute distress, well-nourished - EENT Eyes: Present: PERRL ENT: hearing intact, clear oral mucosa - Neck Neck: Present: supple, normal ROM - Respiratory Respiratory effort: normal Respiratory: bilateral: CTA - Cardiovascular Heart Sounds: Present: S1 & S2. Absent: rub, click - Extremities Extremities: pulses symmetrical, No edema Peripheral Pulses: within normal limits - Abdominal General gastrointestinal: Present: soft, non-tender, non-distended, normal bowel sounds Male genitourinary: Present: normal - Integumentary Integumentary: Present: clear, warm, dry - Musculoskeletal Musculoskeletal: gait normal, strength equal bilaterally - Psychiatric Psychiatric: appropriate mood/affect, intact judgment & insight - Neurologic Neurologic: CNII-XII intact, moves all extremities Results - Labs CBC & Chem 7: 08/12/19 21:05 08/12/19 21:05 Labs: Abnormal lab results 08/12/19 08/12/19 Range/Units 21:05 21:05 RBC 5.23 H (3.65-5.03) M/mm3 Hgb 15.9 H (11.8-15.2) gm/dl MCHC 35 H (32-34) % Lymph % (Auto) 11.9 L (13.4-35.0) % Lymph # 1.0 L (1.2-5.4) K/mm3 Seg Neutrophils % 80.7 H (40.0-70.0) % Carbon Dioxide 21 L (22-30) mmol/L ALT 101 H (7-56) units/L Total Protein 5.7 L (6.3-8.2) g/dL Albumin 3.0 L (3.9-5) g/dL HDL Cholesterol 36 L (40-59) mg/dL Assessment and Plan Schizophrenia. Continue per psychiatry recommendation Hypertension. Resume antihypertensive medications Selective mutism. Continue supportive care.
[2019-08-13] MEDS: traZODone 50 MG TAB PO SCH (22:00)
--- NOTE | 2019-08-14 06:51 | Progress Note ---
Subjective Date of service: 08/14/19 Principal diagnosis: Schizophrenia with prominent negative symptoms Subjective Comment: Per Nurse: Pt spent his evening in activity room minimally interacting with peers, confused, alert and oriented to person, unsteady gait, high risks for fall, ate about 25% of snack, medication compliant, no complaint voiced, no distress noted, will continue to monitor for safety. Psych Progress: Patient interviewed by me this morning, patient was awake and up in bed. Patient initiated conversation this a.m. saying that his got a problem. He reported that he feels like someone is using [employer] and spending his money. And thinks he may have gotten swindled by son-in-law because he had set it up for him. Patient also states he is hearing and seeing the devil the devil tells him that he has got swindled. Patient also asked for today's date. Patient concerns about son inlaw is consistent with reports from his that while he was visiting daughter, he found some saddening revelation about his son in law which precipitated his current mental condition. MENTAL STATUS EXAMINATION General Appearance and Behavior: Age appropriate, good hygiene, wearing appropriate clothes, minimal eye contact. Cooperation: Cooperative Psychomotor Behavior:unremarkable and within normal limits Mood: Good Affect and affective range: congruent with mood Thought Process: Not assessable Thought Content: Logical Speech: Normal rate but low volume Intellectual Functioning: Fair Suicidal Ideation: None Homicidal Ideation: Not assessable Impulse Control: Impaired Insight and Judgment: Fair insight and judgment Memory: Fair Attention: Divided attention intact and Divided attention impaired Orientation: Alert, and oriented to time only Assessment and Plan - Psychiatric problem (1) Schizophrenia with prominent negative symptoms Current Visit: Yes Status: Acute (2) Selective mutism Current Visit: Yes Status: Acute Treatment Plan Patient will be admitted for inpatient psychiatric evaluation, medication adjustment and close monitoring The patient's behavior, mood, sleep and appetite will be closely monitored. Patient will be enrolled in individual and group therapeutic sessions and encouraged to attend. Patient will be provided with a safe and structured environment. Patient's physical health needs will be addressed by the Hospitalist. Hospitalist Consulted Labs including CBC, CMP, Lipid profile and Hemoglobin A1C ordered Social Assessment will be completed and the Animal Eviscerator will work with patient and family to ensure a suitable and safe disposition Medication adjustment will be made as clinically indicated Usual Wellness Gnosticist/Preservation: - Start Trazodone 50 mg po QHS & 50 mg po QHS PRN between 10 PM & 2 AM for insomnia - Start [place]-3 for brain health, reduce impulsivity, and as adjunctive treatment for mood disorder, continue upon discharge given overall benefits. - Start B1 prophylaxis with 200 mg po for 5 days The patient agreed on the treatment plan, understood the risk, benefit, alternative treatment, potential consequence of no treatment, and gave informed consent. This is an acknowledgement statement that PAECE FLORES is a 58 year old M who requires inpatient psychiatric admission for treatment which could reasonably be expected to improve the patient's condition for Estimated period of time patient will need to remain in the hospital: [6] Plan for post-hospital care: [ outpatient] Assessment and Plan - Patient Problems (1) Schizophrenia with prominent negative symptoms Current Visit: No Status: Acute (2) Selective mutism Current Visit: No Status: Acute Medications and Allergies Allergies Allergy/AdvReac Type Severity Reaction Status Date / Time haloperidol [From Haldol] Allergy Unknown Verified 08/04/19 14:27 Home Medications Medication Instructions Recorded Confirmed Last Taken Type Acetaminophen [Tylenol] 325 mg PO Q4HR PRN 08/04/19 08/12/19 Unknown History Amlodipine Besylate [Norvasc] 5 mg PO DAILY 08/04/19 08/12/19 Unknown History Benztropine [Cogentin] 1 tab PO DAILY 08/04/19 08/12/19 Unknown History Magnesium Hydroxide [Milk of 30 ml PO Q8H PRN 08/04/19 08/12/19 Unknown History Magnesia] diphenhydrAMINE [Benadryl CAP] 50 mg PO Q4HR PRN 08/04/19 08/12/19 Unknown History traZODone [Desyrel] 100 mg PO QHS 08/04/19 08/12/[address] 1,000 mg PO QHS 08/12/19 08/12/19 Unknown History OXcarbazepine [Trileptal] 300 mg PO BID 08/12/19 08/12/19 Unknown History Prolixin 5 mg PO Q4H 08/12/19 08/12/19 Unknown History ZyPREXA 5 mg PO QAM 08/12/19 08/12/19 Unknown History ZyPREXA 15 mg PO QHS 08/12/19 08/12/19 Unknown History Active Meds: Active Medications Amlodipine Besylate (Amlodipine) 5 mg PO DAILY [facility] Last Admin: 08/13/19 10:32 Dose: 5 mg Documented by: Benztropine Mesylate (Cogentin) 1 mg PO DAILY [facility] Last Admin: 08/13/19 10:32 Dose: 1 mg Documented by: Fish Oil (Fish Oil) 2,000 mg PO BID [facility] Last Admin: 08/13/19 22:00 Dose: 2,000 mg Documented by: Magnesium Hydroxide (Milk Of Magnesia) 30 ml PO Q8H PRN PRN Reason: Constipation Risperidone (Risperdal) 2 mg PO BID [facility] Last Admin: 08/13/19 22:00 Dose: 2 mg Documented by: Trazodone HCl (Desyrel) 50 mg PO QHS [facility] Last Admin: 08/13/19 22:00 Dose: 50 mg Documented by: Valproic Acid (Depakene) 500 mg PO Q8H [facility] Last Admin: 08/13/19 22:01 Dose: 500 mg Documented by: Ziprasidone (Geodon) 20 mg IM Q6H PRN PRN Reason: Agitation Results - Results Labs/Vitals: Laboratory Last Values WBC 8.8 K/mm3 (4.5-11.0) 08/12/19 21:05 RBC 5.23 M/mm3 (3.65-5.03) H 08/12/19 21:05 Hgb 15.9 gm/dl (11.8-15.2) H 08/12/19 21:05 Hct 45.3 % (35.5-45.6) 08/12/19 21:05 MCV 87 fl (84-94) 08/12/19 21:05 MCH 31 pg (28-32) 08/12/19 21:05 MCHC 35 % (32-34) H 08/12/19 21:05 RDW 13.4 % (13.2-15.2) 08/12/19 21:05 Plt Count 187 K/mm3 (140-440) 08/12/19 21:05 Lymph % (Auto) 11.9 % (13.4-35.0) L 08/12/19 21:05 [place] % (Auto) 6.2 % (0.0-7.3) 08/12/19 21:05 Eos % (Auto) 1.0 % (0.0-4.3) 08/12/19 21:05 Baso % (Auto) 0.2 % (0.0-1.8) 08/12/19 21:05 Lymph # 1.0 K/mm3 (1.2-5.4) L 08/12/19 21:05 [place] # 0.6 K/mm3 (0.0-0.8) 08/12/19 21:05 Eos # 0.1 K/mm3 (0.0-0.4) 08/12/19 21:05 Baso # 0.0 K/mm3 (0.0-0.1) 08/12/19 21:05 Seg Neutrophils % 80.7 % (40.0-70.0) H 08/12/19 21:05 Seg Neutrophils # 7.1 K/mm3 (1.8-7.7) 08/12/19 21:05 Sodium 138 mmol/L (137-145) 08/12/19 21:05 Potassium 3.7 mmol/L (3.6-5.0) 08/12/19 21:05 Chloride 103.8 mmol/L (98-107) 08/12/19 21:05 Carbon Dioxide 21 mmol/L (22-30) L 08/12/19 21:05 Anion Gap 17 mmol/L 08/12/19 21:05 BUN 16 mg/dL (9-20) 08/12/19 21:05 Creatinine 1.0 mg/dL (0.8-1.5) 08/12/19 21:05 Estimated GFR > 60 ml/min 08/12/19 21:05 BUN/Creatinine Ratio 16 % 08/12/19 21:05 Glucose 90 mg/dL (75-100) 08/12/19 21:05 Hemoglobin A1c 5.0 % (4-6) 08/12/19 21:05 Calcium 8.5 mg/dL (8.4-10.2) 08/12/19 21:05 Total Bilirubin 0.90 mg/dL (0.1-1.2) 08/12/19 21:05 AST 39 units/L (5-40) 08/12/19 21:05 ALT 101 units/L (7-56) H 08/12/19 21:05 Alkaline Phosphatase 101 units/L (35-129) 08/12/19 21:05 Total Protein 5.7 g/dL (6.3-8.2) L 08/12/19 21:05 Albumin 3.0 g/dL (3.9-5) L 08/12/19 21:05 Albumin/Globulin Ratio 1.1 % 08/12/19 21:05 Triglycerides 123 mg/dL (2-149) 08/12/19 21:05 Cholesterol 178 mg/dL (50-199) 08/12/19 21:05 LDL Cholesterol Direct 111 mg/dL (50-130) 08/12/19 21:05 HDL Cholesterol 36 mg/dL (40-59) L 08/12/19 21:05 Cholesterol/HDL Ratio 4.94 % 08/12/19 21:05 TSH 2.460 mlU/mL (0.270-4.200) 08/12/19 21:05 Valproic Acid 68.4 ug/mL (50-100) 08/13/19 11:38 Last Vital Signs Temp 98.2 F 08/13/19 22:00 Pulse 113 H 08/13/19 22:00 Resp 18 08/13/19 22:00 BP 110/76 08/13/19 22:00 Pulse Ox 96 08/13/19 22:00
[2019-08-14] MEDS: risperiDONE 1 MG TAB PO SCH ×2 (10:45→21:55)
[2019-08-14] MEDS: amLODIPine 5 MG TAB PO SCH (10:45)
[2019-08-14] MEDS: BENZTROPINE 1 MG TAB PO SCH (10:45)
[2019-08-14] MEDS: OMEGA-3 FATTY ACIDS/FISH OIL 1 GRAM CAP PO SCH ×2 (10:45→21:00)
[2019-08-14] MEDS: VALPROIC ACID 250 MG CAP PO SCH ×3 (10:54→22:00)
[2019-08-14] MEDS: traZODone 50 MG TAB PO SCH (21:56)
[2019-08-14] MEDS ORDERED: traZODone 100 MG TAB PO SCH (23:15)
--- NOTE | 2019-08-15 07:12 | Progress Note ---
Subjective Date of service: 08/15/19 Principal diagnosis: Schizophrenia with prominent negative symptoms Subjective Comment: Per Nurse: Received patient at 1900. Patient is sitting in the activity room talking to a peer. Patient is talking but his sentences do no make sense. Patient reassured he will feel better. He denies any needs at present. Will continue to monitor patient for safety. Psych Progress: Patient interviewed this AM at bed side today. Was up in bed, holding the bible and reading it. Patient initiated conversation today, he said "Hello and asked for my name. Says his mood is good today, enjoys reading the bible, asked me "if he was a man or boy" says he thinks he has before. Patient also raised concerns about son in law using zelle again today. Patient was able to read, he pronounced my name from the badge, and patient was assisted to activity room while he ambulated. Reason for continuing inpatient treatment: Patient mental function and interaction has improved significantly. Initially he was non verbal, and non interactive. Patient is able to read and respond to questions, patient is also beginning to ambulate, still confused but mental function greatly improved from previous. Will continue current medications and speak with family to know his baseline. MENTAL STATUS EXAMINATION General Appearance and Behavior: Age appropriate, good hygiene, wearing appropriate clothes, minimal eye contact. Cooperation: Cooperative Psychomotor Behavior:unremarkable and within normal limits Mood: Good Affect and affective range: congruent with mood Thought Process: Not assessable Thought Content: Logical Speech: Normal rate but low volume Intellectual Functioning: Fair Suicidal Ideation: None Homicidal Ideation: Not assessable Impulse Control: Impaired Insight and Judgment: Fair insight and judgment Memory: Fair Attention: Divided attention intact and Divided attention impaired Orientation: Alert, and oriented to time only Assessment and Plan - Psychiatric problem (1) Schizophrenia with prominent negative symptoms Current Visit: Yes Status: Acute (2) Selective mutism Current Visit: Yes Status: Acute Treatment Plan Patient will be admitted for inpatient psychiatric evaluation, medication adjustment and close monitoring The patient's behavior, mood, sleep and appetite will be closely monitored. Patient will be enrolled in individual and group therapeutic sessions and encouraged to attend. Patient will be provided with a safe and structured environment. Patient's physical health needs will be addressed by the Hospitalist. Hospitalist Consulted Labs including CBC, CMP, Lipid profile and Hemoglobin A1C ordered Social Assessment will be completed and the Camp Program Director will work with patient and family to ensure a suitable and safe disposition Medication adjustment will be made as clinically indicated Usual Wellness [facility]: - Start Trazodone 50 mg po QHS & 50 mg po QHS PRN between 10 PM & 2 AM for insomnia - Start [place]-3 for brain health, reduce impulsivity, and as adjunctive treatment for mood disorder, continue upon discharge given overall benefits. - Start B1 prophylaxis with 200 mg po for 5 days The patient agreed on the treatment plan, understood the risk, benefit, alternative treatment, potential consequence of no treatment, and gave informed consent. This is an acknowledgement statement that PEACE FLORES is a 58 year old M who requires inpatient psychiatric admission for treatment which could reasonably be expected to improve the patient's condition for Estimated period of time patient will need to remain in the hospital: [5] Plan for post-hospital care: [ outpatient] Assessment and Plan - Patient Problems (1) Schizophrenia with prominent negative symptoms Current Visit: No Status: Acute (2) Selective mutism Current Visit: No Status: Acute Medications and Allergies Allergies Allergy/AdvReac Type Severity Reaction Status Date / Time haloperidol [From Haldol] Allergy Unknown Verified 08/04/19 14:27 Home Medications Medication Instructions Recorded Confirmed Last Taken Type Acetaminophen [Tylenol] 325 mg PO Q4HR PRN 08/04/19 08/12/19 Unknown History Amlodipine Besylate [Norvasc] 5 mg PO DAILY 08/04/19 08/12/19 Unknown History Benztropine [Cogentin] 1 tab PO DAILY 08/04/19 08/12/19 Unknown History Magnesium Hydroxide [Milk of 30 ml PO Q8H PRN 08/04/19 08/12/19 Unknown History Magnesia] diphenhydrAMINE [Benadryl CAP] 50 mg PO Q4HR PRN 08/04/19 08/12/19 Unknown History traZODone [Desyrel] 100 mg PO QHS 08/04/19 08/12/[address] 1,000 mg PO QHS 08/12/19 08/12/19 Unknown History OXcarbazepine [Trileptal] 300 mg PO BID 08/12/19 08/12/19 Unknown History Prolixin 5 mg PO Q4H 08/12/19 08/12/19 Unknown History ZyPREXA 5 mg PO QAM 08/12/19 08/12/19 Unknown History ZyPREXA 15 mg PO QHS 08/12/19 08/12/19 Unknown History Active Meds: Active Medications Amlodipine Besylate (Amlodipine) 5 mg PO DAILY [facility] Last Admin: 08/14/19 10:45 Dose: 5 mg Documented by: Benztropine Mesylate (Cogentin) 1 mg PO DAILY [facility] Last Admin: 08/14/19 10:45 Dose: 1 mg Documented by: Fish Oil (Fish Oil) 2,000 mg PO BID [facility] Last Admin: 08/14/19 21:00 Dose: 2,000 mg Documented by: Magnesium Hydroxide (Milk Of Magnesia) 30 ml PO Q8H PRN PRN Reason: Constipation Risperidone (Risperdal) 2 mg PO BID [facility] Last Admin: 08/14/19 21:55 Dose: 2 mg Documented by: Trazodone HCl (Desyrel) 50 mg PO QHS [facility] Last Admin: 08/15/19 01:13 Dose: Not Given Documented by: Valproic Acid (Depakene) 500 mg PO Q8H [facility] Last Admin: 08/14/19 22:00 Dose: 500 mg Documented by: Ziprasidone (Geodon) 20 mg IM Q6H PRN PRN Reason: Agitation Results - Results Labs/Vitals: Laboratory Last Values WBC 8.8 K/mm3 (4.5-11.0) 08/12/19 21:05 RBC 5.23 M/mm3 (3.65-5.03) H 08/12/19 21:05 Hgb 15.9 gm/dl (11.8-15.2) H 08/12/19 21:05 Hct 45.3 % (35.5-45.6) 08/12/19 21:05 MCV 87 fl (84-94) 08/12/19 21:05 MCH 31 pg (28-32) 08/12/19 21:05 MCHC 35 % (32-34) H 08/12/19 21:05 RDW 13.4 % (13.2-15.2) 08/12/19 21:05 Plt Count 187 K/mm3 (140-440) 08/12/19 21:05 Lymph % (Auto) 11.9 % (13.4-35.0) L 08/12/19 21:05 [place] % (Auto) 6.2 % (0.0-7.3) 08/12/19 21:05 Eos % (Auto) 1.0 % (0.0-4.3) 08/12/19 21:05 Baso % (Auto) 0.2 % (0.0-1.8) 08/12/19 21:05 Lymph # 1.0 K/mm3 (1.2-5.4) L 08/12/19 21:05 [place] # 0.6 K/mm3 (0.0-0.8) 08/12/19 21:05 Eos # 0.1 K/mm3 (0.0-0.4) 08/12/19 21:05 Baso # 0.0 K/mm3 (0.0-0.1) 08/12/19 21:05 Seg Neutrophils % 80.7 % (40.0-70.0) H 08/12/19 21:05 Seg Neutrophils # 7.1 K/mm3 (1.8-7.7) 08/12/19 21:05 Sodium 138 mmol/L (137-145) 08/12/19 21:05 Potassium 3.7 mmol/L (3.6-5.0) 08/12/19 21:05 Chloride 103.8 mmol/L (98-107) 08/12/19 21:05 Carbon Dioxide 21 mmol/L (22-30) L 08/12/19 21:05 Anion Gap 17 mmol/L 08/12/19 21:05 BUN 16 mg/dL (9-20) 08/12/19 21:05 Creatinine 1.0 mg/dL (0.8-1.5) 08/12/19 21:05 Estimated GFR > 60 ml/min 08/12/19 21:05 BUN/Creatinine Ratio 16 % 08/12/19 21:05 Glucose 90 mg/dL (75-100) 08/12/19 21:05 Hemoglobin A1c 5.0 % (4-6) 08/12/19 21:05 Calcium 8.5 mg/dL (8.4-10.2) 08/12/19 21:05 Total Bilirubin 0.90 mg/dL (0.1-1.2) 08/12/19 21:05 AST 39 units/L (5-40) 08/12/19 21:05 ALT 101 units/L (7-56) H 08/12/19 21:05 Alkaline Phosphatase 101 units/L (35-129) 08/12/19 21:05 Total Protein 5.7 g/dL (6.3-8.2) L 08/12/19 21:05 Albumin 3.0 g/dL (3.9-5) L 08/12/19 21:05 Albumin/Globulin Ratio 1.1 % 08/12/19 21:05 Triglycerides 123 mg/dL (2-149) 08/12/19 21:05 Cholesterol 178 mg/dL (50-199) 08/12/19 21:05 LDL Cholesterol Direct 111 mg/dL (50-130) 08/12/19 21:05 HDL Cholesterol 36 mg/dL (40-59) L 08/12/19 21:05 Cholesterol/HDL Ratio 4.94 % 08/12/19 21:05 TSH 2.460 mlU/mL (0.270-4.200) 08/12/19 21:05 Valproic Acid 68.4 ug/mL (50-100) 08/13/19 11:38 Last Vital Signs Temp 98.1 F 08/14/19 09:42 Pulse 96 H 08/14/19 10:45 Resp 18 08/14/19 09:42 BP 110/73 08/14/19 10:45 Pulse Ox 96 08/14/19 09:42
[2019-08-15] MEDS: VALPROIC ACID 250 MG CAP PO SCH ×3 (09:30→22:25)
[2019-08-15] MEDS: amLODIPine 5 MG TAB PO SCH (09:30)
[2019-08-15] MEDS: risperiDONE 1 MG TAB PO SCH ×2 (09:30→22:25)
[2019-08-15] MEDS: BENZTROPINE 1 MG TAB PO SCH (12:04)
[2019-08-15] MEDS: OMEGA-3 FATTY ACIDS/FISH OIL 1 GRAM CAP PO SCH ×2 (12:04→22:27)
[2019-08-15] MEDS: traZODone 50 MG TAB PO SCH (22:24)
--- NOTE | 2019-08-16 06:54 | Progress Note ---
Subjective Date of service: 08/16/19 Principal diagnosis: Schizophrenia with prominent negative symptoms Subjective Comment: Per Nurse: Patient was more alert this evening. He was able to ambulate with assistance. He interacted with his peers. Patient was medication compliant. Will continue to monitor patient for safety. Psych Progress: Patient up and awake, found in social room seated and calm. Patient says his mood this AM could be better, thinks he in his sleep and then followed with saying "this is it". When asked what he meant, he said "it has to explode". Patient endorses hearing voices, looks confused but easily redirected without difficulty and compliant with verbal commands. Collateral: Spoke with patients Radha, provided current mental update. reports patient had always required guidance, prior to being admitted, he had stopped eating and she had to feed him. She reports given patients ability to walk around and eat by himself, his very positive and much needed improvement. She says she is unable to transport patient back to [place], and wants patient to be transferred to Memory care. Reason for continuing inpatient treatment: Patient mental function and interaction has improved significantly. Initially he was non verbal, and non interactive. Patient is able to read and respond to questions, patient is also beginning to ambulate, still confused but mental function greatly improved from previous. Will continue current medications and speak with family to know his baseline. MENTAL STATUS EXAMINATION General Appearance and Behavior: Age appropriate, good hygiene, wearing appropriate clothes, minimal eye contact. Cooperation: Cooperative Psychomotor Behavior:unremarkable and within normal limits Mood: Good Affect and affective range: congruent with mood Thought Process: Not assessable Thought Content: Logical Speech: Normal rate but low volume Intellectual Functioning: Fair Suicidal Ideation: None Homicidal Ideation: Not assessable Impulse Control: Impaired Insight and Judgment: Fair insight and judgment Memory: Fair Attention: Divided attention intact and Divided attention impaired Orientation: Alert, and oriented to time only Assessment and Plan - Psychiatric problem (1) Schizophrenia with prominent negative symptoms Current Visit: Yes Status: Acute (2) Selective mutism Current Visit: Yes Status: Acute Treatment Plan Patient will be admitted for inpatient psychiatric evaluation, medication adjustment and close monitoring The patient's behavior, mood, sleep and appetite will be closely monitored. Patient will be enrolled in individual and group therapeutic sessions and encouraged to attend. Patient will be provided with a safe and structured environment. Patient's physical health needs will be addressed by the Hospitalist. Hospitalist Consulted Labs including CBC, CMP, Lipid profile and Hemoglobin A1C ordered Social Assessment will be completed and the [facility] Well Logger will work with patient and family to ensure a suitable and safe disposition Medication adjustment will be made as clinically indicated Usual Wellness [facility]: - Start Trazodone 50 mg po QHS & 50 mg po QHS PRN between 10 PM & 2 AM for insomnia - Start [place]-3 for brain health, reduce impulsivity, and as adjunctive treatment for mood disorder, continue upon discharge given overall benefits. - Start B1 prophylaxis with 200 mg po for 5 days The patient agreed on the treatment plan, understood the risk, benefit, alternative treatment, potential consequence of no treatment, and gave informed consent. This is an acknowledgement statement that PEACE FLORES is a 58 year old M who requires inpatient psychiatric admission for treatment which could reasonably be expected to improve the patient's condition for Estimated period of time patient will need to remain in the hospital: [4] Plan for post-hospital care: [ outpatient] Assessment and Plan - Patient Problems (1) Schizophrenia with prominent negative symptoms Current Visit: No Status: Acute (2) Selective mutism Current Visit: No Status: Acute Medications and Allergies Allergies Allergy/AdvReac Type Severity Reaction Status Date / Time haloperidol [From Haldol] Allergy Unknown Verified 08/04/19 14:27 Home Medications Medication Instructions Recorded Confirmed Last Taken Type Acetaminophen [Tylenol] 325 mg PO Q4HR PRN 08/04/19 08/12/19 Unknown History Amlodipine Besylate [Norvasc] 5 mg PO DAILY 08/04/19 08/12/19 Unknown History Benztropine [Cogentin] 1 tab PO DAILY 08/04/19 08/12/19 Unknown History Magnesium Hydroxide [Milk of 30 ml PO Q8H PRN 08/04/19 08/12/19 Unknown History Magnesia] diphenhydrAMINE [Benadryl CAP] 50 mg PO Q4HR PRN 08/04/19 08/12/19 Unknown History traZODone [Desyrel] 100 mg PO QHS 08/04/19 08/12/[address] 1,000 mg PO QHS 08/12/19 08/12/19 Unknown History OXcarbazepine [Trileptal] 300 mg PO BID 08/12/19 08/12/19 Unknown History Prolixin 5 mg PO Q4H 08/12/19 08/12/19 Unknown History ZyPREXA 5 mg PO QAM 08/12/19 08/12/19 Unknown History ZyPREXA 15 mg PO QHS 08/12/19 08/12/19 Unknown History Active Meds: Active Medications Amlodipine Besylate (Amlodipine) 5 mg PO DAILY [facility] Last Admin: 08/15/19 09:30 Dose: 5 mg Documented by: Benztropine Mesylate (Cogentin) 1 mg PO DAILY [facility] Last Admin: 08/15/19 12:04 Dose: Not Given Documented by: Fish Oil (Fish Oil) 2,000 mg PO BID [facility] Last Admin: 08/15/19 22:27 Dose: 2,000 mg Documented by: Magnesium Hydroxide (Milk Of Magnesia) 30 ml PO Q8H PRN PRN Reason: Constipation Risperidone (Risperdal) 2 mg PO BID [facility] Last Admin: 08/15/19 22:25 Dose: 2 mg Documented by: Trazodone HCl (Desyrel) 50 mg PO QHS [facility] Last Admin: 08/15/19 22:24 Dose: 50 mg Documented by: Valproic Acid (Depakene) 500 mg PO Q8H [facility] Last Admin: 08/15/19 22:25 Dose: 500 mg Documented by: Ziprasidone (Geodon) 20 mg IM Q6H PRN PRN Reason: Agitation Results - Results Labs/Vitals: Laboratory Last Values WBC 8.8 K/mm3 (4.5-11.0) 08/12/19 21:05 RBC 5.23 M/mm3 (3.65-5.03) H 08/12/19 21:05 Hgb 15.9 gm/dl (11.8-15.2) H 08/12/19 21:05 Hct 45.3 % (35.5-45.6) 08/12/19 21:05 MCV 87 fl (84-94) 08/12/19 21:05 MCH 31 pg (28-32) 08/12/19 21:05 MCHC 35 % (32-34) H 08/12/19 21:05 RDW 13.4 % (13.2-15.2) 08/12/19 21:05 Plt Count 187 K/mm3 (140-440) 08/12/19 21:05 Lymph % (Auto) 11.9 % (13.4-35.0) L 08/12/19 21:05 [place] % (Auto) 6.2 % (0.0-7.3) 08/12/19 21:05 Eos % (Auto) 1.0 % (0.0-4.3) 08/12/19 21:05 Baso % (Auto) 0.2 % (0.0-1.8) 08/12/19 21:05 Lymph # 1.0 K/mm3 (1.2-5.4) L 08/12/19 21:05 [place] # 0.6 K/mm3 (0.0-0.8) 08/12/19 21:05 Eos # 0.1 K/mm3 (0.0-0.4) 08/12/19 21:05 Baso # 0.0 K/mm3 (0.0-0.1) 08/12/19 21:05 Seg Neutrophils % 80.7 % (40.0-70.0) H 08/12/19 21:05 Seg Neutrophils # 7.1 K/mm3 (1.8-7.7) 08/12/19 21:05 Sodium 138 mmol/L (137-145) 08/12/19 21:05 Potassium 3.7 mmol/L (3.6-5.0) 08/12/19 21:05 Chloride 103.8 mmol/L (98-107) 08/12/19 21:05 Carbon Dioxide 21 mmol/L (22-30) L 08/12/19 21:05 Anion Gap 17 mmol/L 08/12/19 21:05 BUN 16 mg/dL (9-20) 08/12/19 21:05 Creatinine 1.0 mg/dL (0.8-1.5) 08/12/19 21:05 Estimated GFR > 60 ml/min 08/12/19 21:05 BUN/Creatinine Ratio 16 % 08/12/19 21:05 Glucose 90 mg/dL (75-100) 08/12/19 21:05 Hemoglobin A1c 5.0 % (4-6) 08/12/19 21:05 Calcium 8.5 mg/dL (8.4-10.2) 08/12/19 21:05 Total Bilirubin 0.90 mg/dL (0.1-1.2) 08/12/19 21:05 AST 39 units/L (5-40) 08/12/19 21:05 ALT 101 units/L (7-56) H 08/12/19 21:05 Alkaline Phosphatase 101 units/L (35-129) 08/12/19 21:05 Total Protein 5.7 g/dL (6.3-8.2) L 08/12/19 21:05 Albumin 3.0 g/dL (3.9-5) L 08/12/19 21:05 Albumin/Globulin Ratio 1.1 % 08/12/19 21:05 Triglycerides 123 mg/dL (2-149) 08/12/19 21:05 Cholesterol 178 mg/dL (50-199) 08/12/19 21:05 LDL Cholesterol Direct 111 mg/dL (50-130) 08/12/19 21:05 HDL Cholesterol 36 mg/dL (40-59) L 08/12/19 21:05 Cholesterol/HDL Ratio 4.94 % 08/12/19 21:05 TSH 2.460 mlU/mL (0.270-4.200) 08/12/19 21:05 Valproic Acid 68.4 ug/mL (50-100) 08/13/19 11:38 Last Vital Signs Temp 99.0 F 08/15/19 22:00 Pulse 94 H 08/15/19 22:00 Resp 18 08/15/19 22:00 BP 120/81 08/15/19 22:00 Pulse Ox 97 08/15/19 22:00
[2019-08-16] MEDS: OMEGA-3 FATTY ACIDS/FISH OIL 1 GRAM CAP PO SCH ×3 (12:25→22:11)
[2019-08-16] MEDS: BENZTROPINE 1 MG TAB PO SCH (12:26)
[2019-08-16] MEDS: amLODIPine 5 MG TAB PO SCH (12:26)
[2019-08-16] MEDS: VALPROIC ACID 250 MG CAP PO SCH ×3 (15:43→22:09)
[2019-08-16] MEDS: risperiDONE 1 MG TAB PO SCH ×3 (15:43→22:11)
[2019-08-16] MEDS: traZODone 50 MG TAB PO SCH ×2 (21:47→22:11)
--- NOTE | 2019-08-17 06:56 | Progress Note ---
Subjective Date of service: 08/17/19 Principal diagnosis: Schizophrenia with prominent negative symptoms Subjective Comment: Per Nurse: Pt is alert and disoriented, only responses to his name, disorganized thought process, confused, refused medication after several attempt, refused bedtime snack, no distress noted, will continue to monitor for safety. Psych Progress: Patient is alert, remembers I am from [place], still disoriented to time and place but easily redirectable and very compliant. Patient obsessed with thoughts of dying, has been reading the bible lately. Collateral: Spoke with patients Radha, provided current mental update. reports patient had always required guidance, prior to being admitted, he had stopped eating and she had to feed him. She reports given patients ability to walk around and eat by himself, his very positive and much needed improvement. She says she is unable to transport patient back to [place], and wants patient to be transferred to Memory care. Reason for continuing inpatient treatment: Patient medication non compliant. Will switch to liquid Valproate today. Patient mental function is approaching baseline based on conversation with . Patient has been medication non compliant as he becomes more oriented, pt also obsessed with thoughts of dying, and hell may be partly due to him reading the bible lately. MENTAL STATUS EXAMINATION General Appearance and Behavior: Age appropriate, good hygiene, wearing appropriate clothes, minimal eye contact. Cooperation: Cooperative Psychomotor Behavior:unremarkable and within normal limits Mood: Good Affect and affective range: congruent with mood Thought Process: Not assessable Thought Content: Logical Speech: Normal rate but low volume Intellectual Functioning: Fair Suicidal Ideation: None Homicidal Ideation: Not assessable Impulse Control: Impaired Insight and Judgment: Fair insight and judgment Memory: Fair Attention: Divided attention intact and Divided attention impaired Orientation: Alert, and oriented to time only Assessment and Plan - Psychiatric problem (1) Schizophrenia with prominent negative symptoms Current Visit: Yes Status: Acute (2) Selective mutism Current Visit: Yes Status: Acute Treatment Plan Patient will be admitted for inpatient psychiatric evaluation, medication adjustment and close monitoring The patient's behavior, mood, sleep and appetite will be closely monitored. Patient will be enrolled in individual and group therapeutic sessions and encouraged to attend. Patient will be provided with a safe and structured environment. Patient's physical health needs will be addressed by the Hospitalist. Hospitalist Consulted Labs including CBC, CMP, Lipid profile and Hemoglobin A1C ordered Social Assessment will be completed and the [facility] [employer]inder will work with patient and family to ensure a suitable and safe disposition Medication adjustment will be made as clinically indicated Usual Wellness Quaker/Preservation: - Start Trazodone 50 mg po QHS & 50 mg po QHS PRN between 10 PM & 2 AM for insomnia - Start [place]-3 for brain health, reduce impulsivity, and as adjunctive treatment for mood disorder, continue upon discharge given overall benefits. - Start B1 prophylaxis with 200 mg po for 5 days The patient agreed on the treatment plan, understood the risk, benefit, alternative treatment, potential consequence of no treatment, and gave informed consent. This is an acknowledgement statement that PEACE FLORES is a 58 year old M who requires inpatient psychiatric admission for treatment which could reasonably be expected to improve the patient's condition for Estimated period of time patient will need to remain in the hospital: [3] Plan for post-hospital care: [ outpatient] Assessment and Plan - Patient Problems (1) Schizophrenia with prominent negative symptoms Current Visit: No Status: Acute (2) Selective mutism Current Visit: No Status: Acute Medications and Allergies Allergies Allergy/AdvReac Type Severity Reaction Status Date / Time haloperidol [From Haldol] Allergy Unknown Verified 08/04/19 14:27 Home Medications Medication Instructions Recorded Confirmed Last Taken Type Acetaminophen [Tylenol] 325 mg PO Q4HR PRN 08/04/19 08/12/19 Unknown History Amlodipine Besylate [Norvasc] 5 mg PO DAILY 08/04/19 08/12/19 Unknown History Benztropine [Cogentin] 1 tab PO DAILY 08/04/19 08/12/19 Unknown History Magnesium Hydroxide [Milk of 30 ml PO Q8H PRN 08/04/19 08/12/19 Unknown History Magnesia] diphenhydrAMINE [Benadryl CAP] 50 mg PO Q4HR PRN 08/04/19 08/12/19 Unknown History traZODone [Desyrel] 100 mg PO QHS 08/04/19 08/12/[address] 1,000 mg PO QHS 08/12/19 08/12/19 Unknown History OXcarbazepine [Trileptal] 300 mg PO BID 08/12/19 08/12/19 Unknown History Prolixin 5 mg PO Q4H 08/12/19 08/12/19 Unknown History ZyPREXA 5 mg PO QAM 08/12/19 08/12/19 Unknown History ZyPREXA 15 mg PO QHS 08/12/19 08/12/19 Unknown History Active Meds: Active Medications Amlodipine Besylate (Amlodipine) 5 mg PO DAILY [facility] Last Admin: 08/16/19 12:26 Dose: Not Given Documented by: Benztropine Mesylate (Cogentin) 1 mg PO DAILY [facility] Last Admin: 08/16/19 12:26 Dose: Not Given Documented by: Fish Oil (Fish Oil) 2,000 mg PO BID [facility] Last Admin: 08/16/19 22:11 Dose: Not Given Documented by: Magnesium Hydroxide (Milk Of Magnesia) 30 ml PO Q8H PRN PRN Reason: Constipation Risperidone (Risperdal) 2 mg PO BID [facility] Last Admin: 08/16/19 22:11 Dose: Not Given Documented by: Trazodone HCl (Desyrel) 50 mg PO QHS [facility] Last Admin: 08/16/19 22:11 Dose: Not Given Documented by: Valproic Acid (Depakene) 500 mg PO Q8H [facility] Last Admin: 08/16/19 22:09 Dose: Not Given Documented by: Ziprasidone (Geodon) 20 mg IM Q6H PRN PRN Reason: Agitation Results - Results Labs/Vitals: Laboratory Last Values WBC 8.8 K/mm3 (4.5-11.0) 08/12/19 21:05 RBC 5.23 M/mm3 (3.65-5.03) H 08/12/19 21:05 Hgb 15.9 gm/dl (11.8-15.2) H 08/12/19 21:05 Hct 45.3 % (35.5-45.6) 08/12/19 21:05 MCV 87 fl (84-94) 08/12/19 21:05 MCH 31 pg (28-32) 08/12/19 21:05 MCHC 35 % (32-34) H 08/12/19 21:05 RDW 13.4 % (13.2-15.2) 08/12/19 21:05 Plt Count 187 K/mm3 (140-440) 08/12/19 21:05 Lymph % (Auto) 11.9 % (13.4-35.0) L 08/12/19 21:05 Brooke % (Auto) 6.2 % (0.0-7.3) 08/12/19 21:05 Eos % (Auto) 1.0 % (0.0-4.3) 08/12/19 21:05 Baso % (Auto) 0.2 % (0.0-1.8) 08/12/19 21:05 Lymph # 1.0 K/mm3 (1.2-5.4) L 08/12/19 21:05 Brooke # 0.6 K/mm3 (0.0-0.8) 08/12/19 21:05 Eos # 0.1 K/mm3 (0.0-0.4) 08/12/19 21:05 Baso # 0.0 K/mm3 (0.0-0.1) 08/12/19 21:05 Seg Neutrophils % 80.7 % (40.0-70.0) H 08/12/19 21:05 Seg Neutrophils # 7.1 K/mm3 (1.8-7.7) 08/12/19 21:05 Sodium 138 mmol/L (137-145) 08/12/19 21:05 Potassium 3.7 mmol/L (3.6-5.0) 08/12/19 21:05 Chloride 103.8 mmol/L (98-107) 08/12/19 21:05 Carbon Dioxide 21 mmol/L (22-30) L 08/12/19 21:05 Anion Gap 17 mmol/L 08/12/19 21:05 BUN 16 mg/dL (9-20) 08/12/19 21:05 Creatinine 1.0 mg/dL (0.8-1.5) 08/12/19 21:05 Estimated GFR > 60 ml/min 08/12/19 21:05 BUN/Creatinine Ratio 16 % 08/12/19 21:05 Glucose 90 mg/dL (75-100) 08/12/19 21:05 Hemoglobin A1c 5.0 % (4-6) 08/12/19 21:05 Calcium 8.5 mg/dL (8.4-10.2) 08/12/19 21:05 Total Bilirubin 0.90 mg/dL (0.1-1.2) 08/12/19 21:05 AST 39 units/L (5-40) 08/12/19 21:05 ALT 101 units/L (7-56) H 08/12/19 21:05 Alkaline Phosphatase 101 units/L (35-129) 08/12/19 21:05 Total Protein 5.7 g/dL (6.3-8.2) L 08/12/19 21:05 Albumin 3.0 g/dL (3.9-5) L 08/12/19 21:05 Albumin/Globulin Ratio 1.1 % 08/12/19 21:05 Triglycerides 123 mg/dL (2-149) 08/12/19 21:05 Cholesterol 178 mg/dL (50-199) 08/12/19 21:05 LDL Cholesterol Direct 111 mg/dL (50-130) 08/12/19 21:05 HDL Cholesterol 36 mg/dL (40-59) L 08/12/19 21:05 Cholesterol/HDL Ratio 4.94 % 08/12/19 21:05 TSH 2.460 mlU/mL (0.270-4.200) 08/12/19 21:05 Valproic Acid 68.4 ug/mL (50-100) 08/13/19 11:38 Last Vital Signs Temp 98.4 F 08/16/19 20:09 Pulse 89 08/16/19 20:09 Resp 20 08/16/19 20:09 BP 156/90 08/16/19 20:09 Pulse Ox 97 08/16/19 20:09
[2019-08-17] MEDS ORDERED: WATER FOR INJ Sterile (PF) 10 ML ONE (09:34)
[2019-08-17] MEDS: amLODIPine 5 MG TAB PO SCH (13:31)
[2019-08-17] MEDS: BENZTROPINE 1 MG TAB PO SCH (13:31)
[2019-08-17] MEDS: OMEGA-3 FATTY ACIDS/FISH OIL 1 GRAM CAP PO SCH ×3 (13:32→22:13)
[2019-08-17] MEDS: VALPROIC ACID 250 MG/5 ML ORAL LIQD PO SCH ×2 (13:32→14:37)
[2019-08-17] MEDS: risperiDONE 1 MG TAB PO SCH ×3 (13:32→22:13)
[2019-08-17] MEDS: VALPROIC ACID 250 MG CAP PO SCH (13:33)
[2019-08-17] MEDS: ZIPRASIDONE MESYLATE 20 MG VIAL IM PRN ×2 (13:40→21:53)
[2019-08-17] MEDS: traZODone 50 MG TAB PO SCH (22:13)
[2019-08-18] MEDS: VALPROIC ACID 250 MG/5 ML ORAL LIQD PO SCH ×4 (01:10→21:36)
[2019-08-18] MEDS: LORazepam 2 MG/ML VIAL IM PRN (06:22)
[2019-08-18] MEDS: diphenhydrAMINE 50 MG/ML VIAL IM PRN (06:22)
--- NOTE | 2019-08-18 07:07 | Progress Note ---
Subjective Date of service: 08/18/19 Principal diagnosis: Schizophrenia with prominent negative symptoms Subjective Comment: Per Nurse: Slept some of the night , at times combative with staff. Walking up and down the hallway nude. Staff attempted to redirect patient. Unsuccessful. confused with loose association speech. Geodon im given. non Compliant with snack and meds. Attempted times two to administer meds. Meds crushed and placed in apple sauce , given. Pt in inct of urine. [place] care given. Remain in donovan chair and staff at bedside to prevent any future falls, Staff will continue to monitor for safety. Psych Progress: Patient becoming more alert but less compliant and hyperactive and restless. He has been refusing meds, acting inappropriately and combative with staff. He is also less redirectable and incooperative. Reason for continuing inpatient treatment: Spoke with says patient is in the [facility] for risperidone but [facility] for Inviga. WIll switch to Invega shot today. MENTAL STATUS EXAMINATION General Appearance and Behavior: Age appropriate, good hygiene, wearing appropriate clothes, minimal eye contact. Cooperation: Cooperative Psychomotor Behavior:unremarkable and within normal limits Mood: Good Affect and affective range: congruent with mood Thought Process: Not assessable Thought Content: Logical Speech: Normal rate but low volume Intellectual Functioning: Fair Suicidal Ideation: None Homicidal Ideation: Not assessable Impulse Control: Impaired Insight and Judgment: Fair insight and judgment Memory: Fair Attention: Divided attention intact and Divided attention impaired Orientation: Alert, and oriented to time only Assessment and Plan - Psychiatric problem (1) Schizophrenia with prominent negative symptoms Current Visit: Yes Status: Acute (2) Selective mutism Current Visit: Yes Status: Acute Treatment Plan Patient will be admitted for inpatient psychiatric evaluation, medication adjustment and close monitoring The patient's behavior, mood, sleep and appetite will be closely monitored. Patient will be enrolled in individual and group therapeutic sessions and encouraged to attend. Patient will be provided with a safe and structured environment. Patient's physical health needs will be addressed by the Hospitalist. Hospitalist Consulted Labs including CBC, CMP, Lipid profile and Hemoglobin A1C ordered Social Assessment will be completed and the [facility] will work with patient and family to ensure a suitable and safe disposition Medication adjustment: Invega started at 234, discontinue oral psych meds. WIll start patient on Klonopin BID .25 Usual Wellness Jew/Preservation: - Start Trazodone 50 mg po QHS & 50 mg po QHS PRN between 10 PM & 2 AM for insomnia - Start [place]-3 for brain health, reduce impulsivity, and as adjunctive treatment for mood disorder, continue upon discharge given overall benefits. - Start B1 prophylaxis with 200 mg po for 5 days The patient agreed on the treatment plan, understood the risk, benefit, alternative treatment, potential consequence of no treatment, and gave informed consent. This is an acknowledgement statement that PEACE FLORES is a 58 year old M who requires inpatient psychiatric admission for treatment which could reasonably be expected to improve the patient's condition for Estimated period of time patient will need to remain in the hospital: [3] Plan for post-hospital care: [ outpatient] Assessment and Plan - Patient Problems (1) Schizophrenia with prominent negative symptoms Current Visit: No Status: Acute (2) Selective mutism Current Visit: No Status: Acute Medications and Allergies Allergies Allergy/AdvReac Type Severity Reaction Status Date / Time haloperidol [From Haldol] Allergy Unknown Verified 08/04/19 14:27 Home Medications Medication Instructions Recorded Confirmed Last Taken Type Acetaminophen [Tylenol] 325 mg PO Q4HR PRN 08/04/19 08/12/19 Unknown History Amlodipine Besylate [Norvasc] 5 mg PO DAILY 08/04/19 08/12/19 Unknown History Benztropine [Cogentin] 1 tab PO DAILY 08/04/19 08/12/19 Unknown History Magnesium Hydroxide [Milk of 30 ml PO Q8H PRN 08/04/19 08/12/19 Unknown History Magnesia] diphenhydrAMINE [Benadryl CAP] 50 mg PO Q4HR PRN 08/04/19 08/12/19 Unknown History traZODone [Desyrel] 100 mg PO QHS 08/04/19 08/12/[address] 1,000 mg PO QHS 08/12/19 08/12/19 Unknown History OXcarbazepine [Trileptal] 300 mg PO BID 08/12/19 08/12/19 Unknown History Prolixin 5 mg PO Q4H 08/12/19 08/12/19 Unknown History ZyPREXA 5 mg PO QAM 08/12/19 08/12/19 Unknown History ZyPREXA 15 mg PO QHS 08/12/19 08/12/19 Unknown History Active Meds: Active Medications Amlodipine Besylate (Amlodipine) 5 mg PO DAILY [facility] Last Admin: 08/17/19 13:31 Dose: Not Given Documented by: Benztropine Mesylate (Cogentin) 1 mg PO DAILY [facility] Last Admin: 08/17/19 13:31 Dose: Not Given Documented by: Diphenhydramine HCl (Benadryl) 50 mg IM Q6H PRN PRN Reason: agitation Last Admin: 08/18/19 06:22 Dose: 50 mg Documented by: Fish Oil (Fish Oil) 2,000 mg PO BID [facility] Last Admin: 08/17/19 22:13 Dose: Not Given Documented by: Lorazepam (Ativan) 2 mg IM Q6H PRN PRN Reason: Agitation Last Admin: 08/18/19 06:22 Dose: 2 mg Documented by: Magnesium Hydroxide (Milk Of Magnesia) 30 ml PO Q8H PRN PRN Reason: Constipation Risperidone (Risperdal) 2 mg PO BID [facility] Last Admin: 08/17/19 22:13 Dose: Not Given Documented by: Trazodone HCl (Desyrel) 50 mg PO QHS [facility] Last Admin: 08/17/19 22:13 Dose: Not Given Documented by: Valproic Acid (Depakene Liq) 500 mg PO Q8HR [facility] Last Admin: 08/18/19 01:10 Dose: 500 mg Documented by: Results - Results Labs/Vitals: Laboratory Last Values WBC 8.8 K/mm3 (4.5-11.0) 08/12/19 21:05 RBC 5.23 M/mm3 (3.65-5.03) H 08/12/19 21:05 Hgb 15.9 gm/dl (11.8-15.2) H 08/12/19 21:05 Hct 45.3 % (35.5-45.6) 08/12/19 21:05 MCV 87 fl (84-94) 08/12/19 21:05 MCH 31 pg (28-32) 08/12/19 21:05 MCHC 35 % (32-34) H 08/12/19 21:05 RDW 13.4 % (13.2-15.2) 08/12/19 21:05 Plt Count 187 K/mm3 (140-440) 08/12/19 21:05 Lymph % (Auto) 11.9 % (13.4-35.0) L 08/12/19 21:05 [place] % (Auto) 6.2 % (0.0-7.3) 08/12/19 21:05 Eos % (Auto) 1.0 % (0.0-4.3) 08/12/19 21:05 Baso % (Auto) 0.2 % (0.0-1.8) 08/12/19 21:05 Lymph # 1.0 K/mm3 (1.2-5.4) L 08/12/19 21:05 Pender # 0.6 K/mm3 (0.0-0.8) 08/12/19 21:05 Eos # 0.1 K/mm3 (0.0-0.4) 08/12/19 21:05 Baso # 0.0 K/mm3 (0.0-0.1) 08/12/19 21:05 Seg Neutrophils % 80.7 % (40.0-70.0) H 08/12/19 21:05 Seg Neutrophils # 7.1 K/mm3 (1.8-7.7) 08/12/19 21:05 Sodium 138 mmol/L (137-145) 08/12/19 21:05 Potassium 3.7 mmol/L (3.6-5.0) 08/12/19 21:05 Chloride 103.8 mmol/L (98-107) 08/12/19 21:05 Carbon Dioxide 21 mmol/L (22-30) L 08/12/19 21:05 Anion Gap 17 mmol/L 08/12/19 21:05 BUN 16 mg/dL (9-20) 08/12/19 21:05 Creatinine 1.0 mg/dL (0.8-1.5) 08/12/19 21:05 Estimated GFR > 60 ml/min 08/12/19 21:05 BUN/Creatinine Ratio 16 % 08/12/19 21:05 Glucose 90 mg/dL (75-100) 08/12/19 21:05 POC Glucose 115 (70-105) H 08/12/19 18:12 Hemoglobin A1c 5.0 % (4-6) 08/12/19 21:05 Calcium 8.5 mg/dL (8.4-10.2) 08/12/19 21:05 Total Bilirubin 0.90 mg/dL (0.1-1.2) 08/12/19 21:05 AST 39 units/L (5-40) 08/12/19 21:05 ALT 101 units/L (7-56) H 08/12/19 21:05 Alkaline Phosphatase 101 units/L (35-129) 08/12/19 21:05 Total Protein 5.7 g/dL (6.3-8.2) L 08/12/19 21:05 Albumin 3.0 g/dL (3.9-5) L 08/12/19 21:05 Albumin/Globulin Ratio 1.1 % 08/12/19 21:05 Triglycerides 123 mg/dL (2-149) 08/12/19 21:05 Cholesterol 178 mg/dL (50-199) 08/12/19 21:05 LDL Cholesterol Direct 111 mg/dL (50-130) 08/12/19 21:05 HDL Cholesterol 36 mg/dL (40-59) L 08/12/19 21:05 Cholesterol/HDL Ratio 4.94 % 08/12/19 21:05 TSH 2.460 mlU/mL (0.270-4.200) 08/12/19 21:05 Valproic Acid 68.4 ug/mL (50-100) 08/13/19 11:38 Last Vital Signs Temp 97.5 F L 08/17/19 09:06 Pulse 99 H 08/17/19 09:06 Resp 18 08/17/19 09:06 BP 129/72 08/17/19 09:06 Pulse Ox 94 08/17/19 09:06
[2019-08-18] MEDS: BENZTROPINE 1 MG TAB PO SCH (10:16)
[2019-08-18] MEDS: OMEGA-3 FATTY ACIDS/FISH OIL 1 GRAM CAP PO SCH ×2 (10:16→21:36)
[2019-08-18] MEDS: amLODIPine 5 MG TAB PO SCH (10:18)
[2019-08-18] MEDS ORDERED: INVEGA SUS IM ONE (12:00)
[2019-08-18] MEDS: clonazePAM 0.5 MG TAB PO SCH ×2 (13:29→21:37)
[2019-08-18] MEDS: traZODone 50 MG TAB PO SCH (21:36)
[2019-08-19] MEDS: ACETAMINOPHEN 325 MG TAB PO PRN (02:25)
[2019-08-19] MEDS: VALPROIC ACID 250 MG/5 ML ORAL LIQD PO SCH ×3 (05:12→21:23)
[2019-08-19 06:21] LABS: Hemoglobin 13.2 gm/dl (11.8-15.2); Mean Corpuscular HGB Conc 35 % (32-34); Mean Corpuscular Volume 88 fl (84-94); Platelet Count 237 K/mm3 (140-440); Red Blood Count 4.32 M/mm3 (3.65-5.03)
[2019-08-19 06:30] LABS: BUN/Creatinine Ratio 18; Blood Urea Nitrogen 18 mg/dL (9-20); Calcium 8.5 mg/dL (8.4-10.2); Hemolysis Index 4
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
[2019-08-19] MEDS: clonazePAM 0.5 MG TAB PO SCH ×2 (10:22→21:24)
[2019-08-19] MEDS: BENZTROPINE 1 MG TAB PO SCH (10:22)
[2019-08-19] MEDS: OMEGA-3 FATTY ACIDS/FISH OIL 1 GRAM CAP PO SCH ×2 (10:32→21:25)
[2019-08-19] MEDS: LORazepam 2 MG/ML VIAL IM PRN (12:00)
[2019-08-19] MEDS: diphenhydrAMINE 50 MG/ML VIAL IM PRN (12:00)
[2019-08-19] MEDS ORDERED: ZIPRASIDONE MESYLATE 20 MG VIAL IM ONE (12:00)
[2019-08-19] MEDS: CLINDAMYCIN 300 MG CAP PO SCH ×2 (15:05→21:24)
[2019-08-19] MEDS: traZODone 50 MG TAB PO SCH (21:25)
[2019-08-20] MEDS: diphenhydrAMINE 50 MG/ML VIAL IM PRN (00:16)
[2019-08-20] MEDS: LORazepam 2 MG/ML VIAL IM PRN (00:16)
[2019-08-20] MEDS: VALPROIC ACID 250 MG/5 ML ORAL LIQD PO SCH ×3 (07:51→23:12)
--- NOTE | 2019-08-20 08:20 | Progress Note ---
Subjective Date of service: 08/20/19 Principal diagnosis: Schizophrenia with prominent negative symptoms Subjective Comment: The patient's medical record was reviewed and the patient's progress was discussed with the medical staff. The nurse note states the patient had the phone and was sitting on the floor in the dayroom. When the patient got up from the floor, staff attempted to assist him with the phone. The patient became upset, calling the staff "alien's". The patient then proceeded to the corner of the dayroom poured water on the phone and grabbed a small [employer]ergia speaker. The patient then proceeded to zuleyka the tech out of the dayroom. The tech re-entered the dayroom and closed the door behind her for safety. The patient then threw the speaker at the window in the door and he threw the telephone and remote control down the almaraz. During my interview with the patient this morning, he is sitting in the dayroom. He is a/o x 1. He states he is "unsure why I'm here." He says he feels, "fine." The patient then states, "I already have everything lined up. I'm ready for discharge." He denies SI/HI or hallucinations of any kind. Reason for continued inpatient treatment: The patient is physically aggressive, easily irritated, and confused REVIEW OF SYSTEMS Constitutional: Negative for weight loss ENT: Negative for stridor Respiratory: Negative for cough or hemoptysis All other systems reviewed and are negative MENTAL STATUS EXAMINATION General Appearance: Dressed appropriately Behavior: Calm, cooperative. Mood: "fine" Affect: Restricted Speech: Normal tone and pace Thought Process: Confused Thought Content: Suicidal Ideation: Denies Homicidal Ideation: Denies Hallucinations: Denies Delusions: None elicited Insight and Judgment: Limited Memory/Cognition: Impaired Assessment Schizoaffective Disorder Treatment Plan Patient will be admitted for inpatient psychiatric evaluation, medication adjustment and close monitoring The patient's behavior, mood, sleep and appetite will be closely monitored. Patient will be enrolled in individual and group therapeutic sessions and encouraged to attend. Patient will be provided with a safe and structured environment. Patient's physical health needs will be addressed by the Hospitalist. Hospitalist Consulted Labs including CBC, CMP, Lipid profile and Hemoglobin A1C ordered Social Assessment will be completed and the Trade Union Official will work with patient and family to ensure a suitable and safe disposition Medication adjustment will be made as clinically indicated Usual Wellness Nondenominational/Preservation: Started Risperidone 0.5mg po BID to improve mood and decrease irritability The patient agreed on the treatment plan, understood the risk, benefit, alternative treatment, potential consequence of no treatment, and gave informed consent. Estimated period of time patient will need to remain in the hospital: [5] Plan for post-hospital care: [Outpatient] Medications and Allergies Allergies Allergy/AdvReac Type Severity Reaction Status Date / Time haloperidol [From Haldol] Allergy Unknown Verified 08/04/19 14:27 Home Medications Medication Instructions Recorded Confirmed Last Taken Type Acetaminophen [Tylenol] 325 mg PO Q4HR PRN 08/04/19 08/12/19 Unknown History Amlodipine Besylate [Norvasc] 5 mg PO DAILY 08/04/19 08/12/19 Unknown History Benztropine [Cogentin] 1 tab PO DAILY 08/04/19 08/12/19 Unknown History Magnesium Hydroxide [Milk of 30 ml PO Q8H PRN 08/04/19 08/12/19 Unknown History Magnesia] diphenhydrAMINE [Benadryl CAP] 50 mg PO Q4HR PRN 08/04/19 08/12/19 Unknown History traZODone [Desyrel] 100 mg PO QHS 08/04/19 08/12/[address] 1,000 mg PO QHS 08/12/19 08/12/19 Unknown History OXcarbazepine [Trileptal] 300 mg PO BID 08/12/19 08/12/19 Unknown History Prolixin 5 mg PO Q4H 08/12/19 08/12/19 Unknown History ZyPREXA 5 mg PO QA 08/12/19 08/12/19 Unknown History ZyPREXA 15 mg PO QHS 08/12/19 08/12/19 Unknown History Active Meds: Active Medications Acetaminophen (Tylenol) 650 mg PO Q6H PRN PRN Reason: Pain, Mild (1-3) Last Admin: 08/19/19 02:25 Dose: 650 mg Documented by: Benztropine Mesylate (Cogentin) 1 mg PO DAILY [facility] Last Admin: 08/19/19 10:22 Dose: 1 mg Documented by: Clindamycin HCl (Cleocin) 300 mg PO TID [facility] Stop: 08/26/19 08:01 Last Admin: 08/19/19 21:24 Dose: 300 mg Documented by: Clonazepam (Klonopin) 0.25 mg PO BID [facility] Last Admin: 08/19/19 21:24 Dose: 0.25 mg Documented by: Diphenhydramine HCl (Benadryl) 50 mg IM Q6H PRN PRN Reason: agitation Last Admin: 08/20/19 00:16 Dose: 50 mg Documented by: Fish Oil (Fish Oil) 2,000 mg PO BID [facility] Last Admin: 08/19/19 21:25 Dose: 2,000 mg Documented by: Lorazepam (Ativan) 2 mg IM Q6H PRN PRN Reason: Agitation Last Admin: 08/20/19 00:16 Dose: 2 mg Documented by: Magnesium Hydroxide (Milk Of Magnesia) 30 ml PO Q8H PRN PRN Reason: Constipation Trazodone HCl (Desyrel) 50 mg PO QHS [facility] Last Admin: 08/19/19 21:25 Dose: 50 mg Documented by: Valproic Acid (Depakene Liq) 500 mg PO Q8HR [facility] Last Admin: 08/20/19 07:51 Dose: 500 mg Documented by: Results - Results Labs/Vitals: Laboratory Last Values WBC 14.6 K/mm3 (4.5-11.0) H 08/19/19 05:52 RBC 4.32 M/mm3 (3.65-5.03) 08/19/19 05:52 Hgb 13.2 gm/dl (11.8-15.2) 08/19/19 05:52 Hct 38.0 % (35.5-45.6) 08/19/19 05:52 MCV 88 fl (84-94) 08/19/19 05:52 MCH 31 pg (28-32) 08/19/19 05:52 MCHC 35 % (32-34) H 08/19/19 05:52 RDW 14.0 % (13.2-15.2) 08/19/19 05:52 Plt Count 237 K/mm3 (140-440) 08/19/19 05:52 Lymph % (Auto) 11.9 % (13.4-35.0) L 08/12/19 21:05 [place] % (Auto) 6.2 % (0.0-7.3) 08/12/19 21:05 Eos % (Auto) 1.0 % (0.0-4.3) 08/12/19 21:05 Baso % (Auto) 0.2 % (0.0-1.8) 08/12/19 21:05 Lymph # 1.0 K/mm3 (1.2-5.4) L 08/12/19 21:05 [place] # 0.6 K/mm3 (0.0-0.8) 08/12/19 21:05 Eos # 0.1 K/mm3 (0.0-0.4) 08/12/19 21:05 Baso # 0.0 K/mm3 (0.0-0.1) 08/12/19 21:05 Seg Neutrophils % 80.7 % (40.0-70.0) H 08/12/19 21:05 Seg Neutrophils # 7.1 K/mm3 (1.8-7.7) 08/12/19 21:05 Sodium 134 mmol/L (137-145) L 08/19/19 05:52 Potassium 3.6 mmol/L (3.6-5.0) 08/19/19 05:52 Chloride 95.4 mmol/L (98-107) L 08/19/19 05:52 Carbon Dioxide 25 mmol/L (22-30) 08/19/19 05:52 Anion Gap 17 mmol/L 08/19/19 05:52 BUN 18 mg/dL (9-20) 08/19/19 05:52 Creatinine 1.0 mg/dL (0.8-1.5) 08/19/19 05:52 Estimated GFR > 60 ml/min 08/19/19 05:52 BUN/Creatinine Ratio 18 % 08/19/19 05:52 Glucose 112 mg/dL (75-100) H 08/19/19 05:52 POC Glucose 115 (70-105) H 08/12/19 18:12 Hemoglobin A1c 5.0 % (4-6) 08/12/19 21:05 Calcium 8.5 mg/dL (8.4-10.2) 08/19/19 05:52 Total Bilirubin 0.90 mg/dL (0.1-1.2) 08/12/19 21:05 AST 39 units/L (5-40) 08/12/19 21:05 ALT 101 units/L (7-56) H 08/12/19 21:05 Alkaline Phosphatase 101 units/L (35-129) 08/12/19 21:05 Total Protein 5.7 g/dL (6.3-8.2) L 08/12/19 21:05 Albumin 3.0 g/dL (3.9-5) L 08/12/19 21:05 Albumin/Globulin Ratio 1.1 % 08/12/19 21:05 Triglycerides 123 mg/dL (2-149) 08/12/19 21:05 Cholesterol 178 mg/dL (50-199) 08/12/19 21:05 LDL Cholesterol Direct 111 mg/dL (50-130) 08/12/19 21:05 HDL Cholesterol 36 mg/dL (40-59) L 08/12/19 21:05 Cholesterol/HDL Ratio 4.94 % 08/12/19 21:05 TSH 2.460 mlU/mL (0.270-4.200) 08/12/19 21:05 Valproic Acid 68.4 ug/mL (50-100) 08/13/19 11:38 Last Vital Signs Temp 98.0 F 08/19/19 22:00 Pulse 98 H 08/19/19 22:00 Resp 20 08/19/19 22:00 BP 105/72 08/19/19 22:00 Pulse Ox 98 08/19/19 22:00
[2019-08-20] MEDS: BENZTROPINE 1 MG TAB PO SCH (09:59)
[2019-08-20] MEDS: risperiDONE 0.25 MG TAB PO SCH ×2 (09:59→23:31)
[2019-08-20] MEDS: CLINDAMYCIN 300 MG CAP PO SCH ×3 (09:59→23:12)
[2019-08-20] MEDS: clonazePAM 0.5 MG TAB PO SCH ×2 (09:59→23:15)
[2019-08-20] MEDS: OMEGA-3 FATTY ACIDS/FISH OIL 1 GRAM CAP PO SCH ×2 (11:14→23:14)
[2019-08-20] MEDS: ACETAMINOPHEN 325 MG TAB PO PRN (11:37)
[2019-08-20] MEDS: traZODone 50 MG TAB PO SCH (23:14)
--- NOTE | 2019-08-21 09:12 | Progress Note ---
Subjective Date of service: 08/21/19 Principal diagnosis: Schizophrenia with prominent negative symptoms Subjective Comment: The patient's medical record was reviewed and the patient's progress was discussed with the medical staff. The nurse note states the patient was awake all night except for 1 hour. He refused his medications last evening. He lay in the floor in his room masturbating throughout the night. He presents as irritable and confused. I attempted to interview the patient this morning, he is lying in the dayroom. He is somnolent. He could not be arouses enough to engage him in the interview. Reason for continued inpatient treatment: The patient has an impaired sleep cycle, easily irritated, confused, and at times physically aggressive. REVIEW OF SYSTEMS Unable to obtain MENTAL STATUS EXAMINATION Unable to assess Assessment Schizoaffective Disorder Treatment Plan Patient will be admitted for inpatient psychiatric evaluation, medication adjustment and close monitoring The patient's behavior, mood, sleep and appetite will be closely monitored. Patient will be enrolled in individual and group therapeutic sessions and encouraged to attend. Patient will be provided with a safe and structured environment. Patient's physical health needs will be addressed by the Hospitalist. Hospitalist Consulted Labs including CBC, CMP, Lipid profile and Hemoglobin A1C ordered Social Assessment will be completed and the Camp Manager will work with patient and family to ensure a suitable and safe disposition Medication adjustment will be made as clinically indicated Usual Wellness Taoism/Preservation: Increased Risperidone 1mg po BID to improve mood and decrease irritability Increased Trazodone 100mg to induce sleep Started Depakote 250mg po BID to improve mood The patient agreed on the treatment plan, understood the risk, benefit, alternative treatment, potential consequence of no treatment, and gave informed consent. Estimated period of time patient will need to remain in the hospital: [5] Plan for post-hospital care: [Outpatient] Medications and Allergies Allergies Allergy/AdvReac Type Severity Reaction Status Date / Time haloperidol [From Haldol] Allergy Unknown Verified 08/04/19 14:27 Home Medications Medication Instructions Recorded Confirmed Last Taken Type Acetaminophen [Tylenol] 325 mg PO Q4HR PRN 08/04/19 08/12/19 Unknown History Amlodipine Besylate [Norvasc] 5 mg PO DAILY 08/04/19 08/12/19 Unknown History Benztropine [Cogentin] 1 tab PO DAILY 08/04/19 08/12/19 Unknown History Magnesium Hydroxide [Milk of 30 ml PO Q8H PRN 08/04/19 08/12/19 Unknown History Magnesia] diphenhydrAMINE [Benadryl CAP] 50 mg PO Q4HR PRN 08/04/19 08/12/19 Unknown History traZODone [Desyrel] 100 mg PO QHS 08/04/19 08/12/[address] 1,000 mg PO QHS 08/12/19 08/12/19 Unknown History OXcarbazepine [Trileptal] 300 mg PO BID 08/12/19 08/12/19 Unknown History Prolixin 5 mg PO Q4H 08/12/19 08/12/19 Unknown History ZyPREXA 5 mg PO QAM 08/12/19 08/12/19 Unknown History ZyPREXA 15 mg PO QHS 08/12/19 08/12/19 Unknown History Active Meds: Active Medications Acetaminophen (Tylenol) 650 mg PO Q6H PRN PRN Reason: Pain, Mild (1-3) Last Admin: 08/20/19 11:37 Dose: 650 mg Documented by: Benztropine Mesylate (Cogentin) 1 mg PO DAILY [facility] Last Admin: 08/20/19 09:59 Dose: 1 mg Documented by: Clindamycin HCl (Cleocin) 300 mg PO TID [facility] Stop: 08/26/19 08:01 Last Admin: 08/20/19 23:12 Dose: Not Given Documented by: Clonazepam (Klonopin) 0.25 mg PO BID [facility] Last Admin: 08/20/19 23:15 Dose: Not Given Documented by: Diphenhydramine HCl (Benadryl) 50 mg IM Q6H PRN PRN Reason: agitation Last Admin: 08/20/19 00:16 Dose: 50 mg Documented by: Fish Oil (Fish Oil) 2,000 mg PO BID [facility] Last Admin: 08/20/19 23:14 Dose: Not Given Documented by: Lorazepam (Ativan) 2 mg IM Q6H PRN PRN Reason: Agitation Last Admin: 08/20/19 00:16 Dose: 2 mg Documented by: Magnesium Hydroxide (Milk Of Magnesia) 30 ml PO Q8H PRN PRN Reason: Constipation Risperidone (Risperdal) 0.5 mg PO BID [facility] Last Admin: 08/20/19 23:31 Dose: Not Given Documented by: Trazodone HCl (Desyrel) 50 mg PO QHS [facility] Last Admin: 08/20/19 23:14 Dose: Not Given Documented by: Valproic Acid (Depakene Liq) 500 mg PO Q8HR [facility] Last Admin: 08/20/19 23:12 Dose: Not Given Documented by: Results - Results Labs/Vitals: Laboratory Last Values WBC 14.6 K/mm3 (4.5-11.0) H 08/19/19 05:52 RBC 4.32 M/mm3 (3.65-5.03) 08/19/19 05:52 Hgb 13.2 gm/dl (11.8-15.2) 08/19/19 05:52 Hct 38.0 % (35.5-45.6) 08/19/19 05:52 MCV 88 fl (84-94) 08/19/19 05:52 MCH 31 pg (28-32) 08/19/19 05:52 MCHC 35 % (32-34) H 08/19/19 05:52 RDW 14.0 % (13.2-15.2) 08/19/19 05:52 Plt Count 237 K/mm3 (140-440) 08/19/19 05:52 Lymph % (Auto) 11.9 % (13.4-35.0) L 08/12/19 21:05 [place] % (Auto) 6.2 % (0.0-7.3) 08/12/19 21:05 Eos % (Auto) 1.0 % (0.0-4.3) 08/12/19 21:05 Baso % (Auto) 0.2 % (0.0-1.8) 08/12/19 21:05 Lymph # 1.0 K/mm3 (1.2-5.4) L 08/12/19 21:05 [place] # 0.6 K/mm3 (0.0-0.8) 08/12/19 21:05 Eos # 0.1 K/mm3 (0.0-0.4) 08/12/19 21:05 Baso # 0.0 K/mm3 (0.0-0.1) 08/12/19 21:05 Seg Neutrophils % 80.7 % (40.0-70.0) H 08/12/19 21:05 Seg Neutrophils # 7.1 K/mm3 (1.8-7.7) 08/12/19 21:05 Sodium 134 mmol/L (137-145) L 08/19/19 05:52 Potassium 3.6 mmol/L (3.6-5.0) 08/19/19 05:52 Chloride 95.4 mmol/L (98-107) L 08/19/19 05:52 Carbon Dioxide 25 mmol/L (22-30) 08/19/19 05:52 Anion Gap 17 mmol/L 08/19/19 05:52 BUN 18 mg/dL (9-20) 08/19/19 05:52 Creatinine 1.0 mg/dL (0.8-1.5) 08/19/19 05:52 Estimated GFR > 60 ml/min 08/19/19 05:52 BUN/Creatinine Ratio 18 % 08/19/19 05:52 Glucose 112 mg/dL (75-100) H 08/19/19 05:52 POC Glucose 115 (70-105) H 08/12/19 18:12 Hemoglobin A1c 5.0 % (4-6) 08/12/19 21:05 Calcium 8.5 mg/dL (8.4-10.2) 08/19/19 05:52 Total Bilirubin 0.90 mg/dL (0.1-1.2) 08/12/19 21:05 AST 39 units/L (5-40) 08/12/19 21:05 ALT 101 units/L (7-56) H 08/12/19 21:05 Alkaline Phosphatase 101 units/L (35-129) 08/12/19 21:05 Total Protein 5.7 g/dL (6.3-8.2) L 08/12/19 21:05 Albumin 3.0 g/dL (3.9-5) L 08/12/19 21:05 Albumin/Globulin Ratio 1.1 % 08/12/19 21:05 Triglycerides 123 mg/dL (2-149) 08/12/19 21:05 Cholesterol 178 mg/dL (50-199) 08/12/19 21:05 LDL Cholesterol Direct 111 mg/dL (50-130) 08/12/19 21:05 HDL Cholesterol 36 mg/dL (40-59) L 08/12/19 21:05 Cholesterol/HDL Ratio 4.94 % 08/12/19 21:05 TSH 2.460 mlU/mL (0.270-4.200) 08/12/19 21:05 Valproic Acid 68.4 ug/mL (50-100) 08/13/19 11:38 Last Vital Signs Temp 98.2 F 08/20/19 19:56 Pulse 91 H 08/20/19 19:56 Resp 18 08/20/19 19:56 BP 124/77 08/20/19 19:56 Pulse Ox 96 08/20/19 19:56
[2019-08-21] MEDS ORDERED: risperiDONE 0.25 MG TAB PO SCH (09:15)
[2019-08-21] MEDS ORDERED: traZODone 50 MG TAB PO SCH (09:15)
[2019-08-21] MEDS: VALPROIC ACID 250 MG/5 ML ORAL LIQD PO SCH ×3 (10:00→21:22)
[2019-08-21] MEDS: CLINDAMYCIN 300 MG CAP PO SCH ×3 (11:20→20:05)
[2019-08-21] MEDS: BENZTROPINE 1 MG TAB PO SCH (11:21)
[2019-08-21] MEDS: OMEGA-3 FATTY ACIDS/FISH OIL 1 GRAM CAP PO SCH ×2 (11:21→21:22)
[2019-08-21] MEDS: risperiDONE 1 MG TAB PO SCH ×2 (11:21→21:22)
[2019-08-21] MEDS: DIVALPROEX DR 250 MG TAB PO SCH ×2 (11:21→21:22)
[2019-08-21] MEDS: clonazePAM 0.5 MG TAB PO SCH ×2 (11:21→21:22)
[2019-08-21] MEDS: diphenhydrAMINE 50 MG/ML VIAL IM PRN (12:25)
[2019-08-21] MEDS: LORazepam 2 MG/ML VIAL IM PRN (12:26)
[2019-08-21] MEDS: traZODone 100 MG TAB PO SCH (21:22)
[2019-08-22] MEDS: VALPROIC ACID 250 MG/5 ML ORAL LIQD PO SCH ×5 (05:09→21:55)
--- NOTE | 2019-08-22 08:20 | Progress Note ---
Subjective Date of service: 08/22/19 Principal diagnosis: Schizophrenia with prominent negative symptoms Subjective Comment: The patient's medical record was reviewed and the patient's progress was discussed with the medical staff. The nurse note states the patient refused all morning medication. The nurse encourage the patient several times. The patient strongly refused The patient state "it's for my mother, the alva." The patient paces about in hallway and the day room, very disorganized, PRN ativan 2mg IM, and PRN Benadryl 50mg IM given. The nurse this morning also states that the patient walked the hallway naked all day yesterday. During my interview with the patient this morning, he is lying in bed. Awake. He is confused and disorganized. He is exposed from his waist down. He refers to me as "mommy" after ever question. When asked why his pants were off, he replies, "I got hot mommy." When trying to redirect the patient and tell him who I was, he still continued as before. When asked about suicidal or homicidal thoughts, he replied, "no mommy." He also replied "no mommy" when asked about hallucinations. Reason for continued inpatient treatment: The patient is delusional, disorganized, and can become physically aggressive. REVIEW OF SYSTEMS Unable to obtain MENTAL STATUS EXAMINATION Unable to assess Assessment Schizoaffective Disorder Treatment Plan Patient will be admitted for inpatient psychiatric evaluation, medication adjustment and close monitoring The patient's behavior, mood, sleep and appetite will be closely monitored. Patient will be enrolled in individual and group therapeutic sessions and encouraged to attend. Patient will be provided with a safe and structured environment. Patient's physical health needs will be addressed by the Hospitalist. Hospitalist Consulted Labs including CBC, CMP, Lipid profile and Hemoglobin A1C ordered Social Assessment will be completed and the Fuel Oil Truck Driver will work with patient and family to ensure a suitable and safe disposition Medication adjustment will be made as clinically indicated Usual Wellness Holiness/Preservation: Increased Risperidone 2mg po BID to improve mood and decrease irritability The patient agreed on the treatment plan, understood the risk, benefit, alternative treatment, potential consequence of no treatment, and gave informed consent. Estimated period of time patient will need to remain in the hospital: [5] Plan for post-hospital care: [Outpatient] Medications and Allergies Allergies Allergy/AdvReac Type Severity Reaction Status Date / Time haloperidol [From Haldol] Allergy Unknown Verified 08/04/19 14:27 Home Medications Medication Instructions Recorded Confirmed Last Taken Type Acetaminophen [Tylenol] 325 mg PO Q4HR PRN 08/04/19 08/12/19 Unknown History Amlodipine Besylate [Norvasc] 5 mg PO DAILY 08/04/19 08/12/19 Unknown History Benztropine [Cogentin] 1 tab PO DAILY 08/04/19 08/12/19 Unknown History Magnesium Hydroxide [Milk of 30 ml PO Q8H PRN 08/04/19 08/12/19 Unknown History Magnesia] diphenhydrAMINE [Benadryl CAP] 50 mg PO Q4HR PRN 08/04/19 08/12/19 Unknown History traZODone [Desyrel] 100 mg PO QHS 08/04/19 08/12/[address] 1,000 mg PO QHS 08/12/19 08/12/19 Unknown History OXcarbazepine [Trileptal] 300 mg PO BID 08/12/19 08/12/19 Unknown History Prolixin 5 mg PO Q4H 08/12/19 08/12/19 Unknown History ZyPREXA 5 mg PO QA 08/12/19 08/12/19 Unknown History ZyPREXA 15 mg PO QHS 08/12/19 08/12/19 Unknown History Active Meds: Active Medications Acetaminophen (Tylenol) 650 mg PO Q6H PRN PRN Reason: Pain, Mild (1-3) Last Admin: 08/20/19 11:37 Dose: 650 mg Documented by: Benztropine Mesylate (Cogentin) 1 mg PO DAILY [facility] Last Admin: 08/21/19 11:21 Dose: Not Given Documented by: Clindamycin HCl (Cleocin) 300 mg PO TID [facility] Stop: 08/26/19 08:01 Last Admin: 08/21/19 20:05 Dose: 300 mg Documented by: Clonazepam (Klonopin) 0.25 mg PO BID [facility] Last Admin: 08/21/19 21:22 Dose: 0.25 mg Documented by: Diphenhydramine HCl (Benadryl) 50 mg IM Q6H PRN PRN Reason: agitation Last Admin: 08/21/19 12:25 Dose: 50 mg Documented by: Divalproex Sodium (Depakote Dr) 250 mg PO BID [facility] Last Admin: 08/21/19 21:22 Dose: 250 mg Documented by: Fish Oil (Fish Oil) 2,000 mg PO BID [facility] Last Admin: 08/21/19 21:22 Dose: 2,000 mg Documented by: Lorazepam (Ativan) 2 mg IM Q6H PRN PRN Reason: Agitation Last Admin: 08/21/19 12:26 Dose: 2 mg Documented by: Magnesium Hydroxide (Milk Of Magnesia) 30 ml PO Q8H PRN PRN Reason: Constipation Risperidone (Risperdal) 1 mg PO BID [facility] Last Admin: 08/21/19 21:22 Dose: 1 mg Documented by: Trazodone HCl (Desyrel) 100 mg PO QHS [facility] Last Admin: 08/21/19 21:22 Dose: 100 mg Documented by: Valproic Acid (Depakene Liq) 500 mg PO Q8HR [facility] Last Admin: 08/22/19 05:09 Dose: 500 mg Documented by: Results - Results Labs/Vitals: Laboratory Last Values WBC 14.6 K/mm3 (4.5-11.0) H 08/19/19 05:52 RBC 4.32 M/mm3 (3.65-5.03) 08/19/19 05:52 Hgb 13.2 gm/dl (11.8-15.2) 08/19/19 05:52 Hct 38.0 % (35.5-45.6) 08/19/19 05:52 MCV 88 fl (84-94) 08/19/19 05:52 MCH 31 pg (28-32) 08/19/19 05:52 MCHC 35 % (32-34) H 08/19/19 05:52 RDW 14.0 % (13.2-15.2) 08/19/19 05:52 Plt Count 237 K/mm3 (140-440) 08/19/19 05:52 Lymph % (Auto) 11.9 % (13.4-35.0) L 08/12/19 21:05 [place] % (Auto) 6.2 % (0.0-7.3) 08/12/19 21:05 Eos % (Auto) 1.0 % (0.0-4.3) 08/12/19 21:05 Baso % (Auto) 0.2 % (0.0-1.8) 08/12/19 21:05 Lymph # 1.0 K/mm3 (1.2-5.4) L 08/12/19 21:05 [place] # 0.6 K/mm3 (0.0-0.8) 08/12/19 21:05 Eos # 0.1 K/mm3 (0.0-0.4) 08/12/19 21:05 Baso # 0.0 K/mm3 (0.0-0.1) 08/12/19 21:05 Seg Neutrophils % 80.7 % (40.0-70.0) H 08/12/19 21:05 Seg Neutrophils # 7.1 K/mm3 (1.8-7.7) 08/12/19 21:05 Sodium 134 mmol/L (137-145) L 08/19/19 05:52 Potassium 3.6 mmol/L (3.6-5.0) 08/19/19 05:52 Chloride 95.4 mmol/L (98-107) L 08/19/19 05:52 Carbon Dioxide 25 mmol/L (22-30) 08/19/19 05:52 Anion Gap 17 mmol/L 08/19/19 05:52 BUN 18 mg/dL (9-20) 08/19/19 05:52 Creatinine 1.0 mg/dL (0.8-1.5) 08/19/19 05:52 Estimated GFR > 60 ml/min 08/19/19 05:52 BUN/Creatinine Ratio 18 % 08/19/19 05:52 Glucose 112 mg/dL (75-100) H 08/19/19 05:52 POC Glucose 150 (70-105) H 08/21/19 10:24 Hemoglobin A1c 5.0 % (4-6) 08/12/19 21:05 Calcium 8.5 mg/dL (8.4-10.2) 08/19/19 05:52 Total Bilirubin 0.90 mg/dL (0.1-1.2) 08/12/19 21:05 AST 39 units/L (5-40) 08/12/19 21:05 ALT 101 units/L (7-56) H 08/12/19 21:05 Alkaline Phosphatase 101 units/L (35-129) 08/12/19 21:05 Total Protein 5.7 g/dL (6.3-8.2) L 08/12/19 21:05 Albumin 3.0 g/dL (3.9-5) L 08/12/19 21:05 Albumin/Globulin Ratio 1.1 % 08/12/19 21:05 Triglycerides 123 mg/dL (2-149) 08/12/19 21: Cholesterol 178 mg/dL (50-199) 08/12/19 21:05 LDL Cholesterol Direct 111 mg/dL (50-130) 08/12/19 21:05 HDL Cholesterol 36 mg/dL (40-59) L 08/12/19 21:05 Cholesterol/HDL Ratio 4.94 % 08/12/19 21:05 TSH 2.460 mlU/mL (0.270-4.200) 08/12/19 21:05 Valproic Acid 68.4 ug/mL (50-100) 08/13/19 11:38 Last Vital Signs Temp 97.3 F L 08/21/19 22:00 Pulse 94 H 08/21/19 22:00 Resp 20 08/21/19 22:00 BP 150/90 08/21/19 22:00 Pulse Ox 100 08/21/19 22:00
[2019-08-22] MEDS: clonazePAM 0.5 MG TAB PO SCH ×2 (10:59→21:14)
[2019-08-22] MEDS: BENZTROPINE 1 MG TAB PO SCH (10:59)
[2019-08-22] MEDS: OMEGA-3 FATTY ACIDS/FISH OIL 1 GRAM CAP PO SCH ×4 (11:00→21:56)
[2019-08-22] MEDS: risperiDONE 1 MG TAB PO SCH ×3 (11:00→21:56)
[2019-08-22] MEDS: CLINDAMYCIN 300 MG CAP PO SCH ×4 (14:06→20:12)
[2019-08-22] MEDS: traZODone 100 MG TAB PO SCH ×2 (21:13→21:57)
[2019-08-22] MEDS: ACETAMINOPHEN 325 MG TAB PO PRN (21:14)
[2019-08-22] MEDS: diphenhydrAMINE 50 MG/ML VIAL IM PRN (22:02)
[2019-08-23] MEDS: VALPROIC ACID 250 MG/5 ML ORAL LIQD PO SCH ×3 (05:42→22:11)
[2019-08-23] MEDS: CLINDAMYCIN 300 MG CAP PO SCH ×3 (07:51→20:17)
--- NOTE | 2019-08-23 08:14 | Progress Note ---
Subjective Date of service: 08/23/19 Principal diagnosis: Schizophrenia with prominent negative symptoms Subjective Comment: The patient's medical record was reviewed and the patient's progress was discussed with the medical staff. The nurse note states the patient spent his evening pacing, disorganized thought process, confused, alert and oriented to person, refused snacks, not compliant with medication. The patient was able to take klonopin 0.25 mg po and clindamycin 300mg po after persuasion. The patient observed to be restless. He reported feeling anxious, and preoccupied with being a man I attempted to interview the patient this morning, he is lying in bed. Somnolent. He arouses but drifts back to sleep. He could not be engaged to participated in the interview. Reason for continued inpatient treatment: The patient is disorganized, anxious, disturbed sleep pattern, and has passive thoughts of suicide. REVIEW OF SYSTEMS Unable to obtain MENTAL STATUS EXAMINATION Unable to assess Assessment Schizoaffective Disorder Treatment Plan Patient will be admitted for inpatient psychiatric evaluation, medication adjustment and close monitoring The patient's behavior, mood, sleep and appetite will be closely monitored. Patient will be enrolled in individual and group therapeutic sessions and encouraged to attend. Patient will be provided with a safe and structured environment. Patient's physical health needs will be addressed by the Hospitalist. Hospitalist Consulted Labs including CBC, CMP, Lipid profile and Hemoglobin A1C ordered Social Assessment will be completed and the Quality Project Manager will work with patient and family to ensure a suitable and safe disposition Medication adjustment will be made as clinically indicated Usual Wellness Scientologist/Preservation: Increased Risperidone 3mg po BID to improve mood and decrease irritability, improve mood and help with disorganization Started Prozac 10mg po to help with depressive symptoms and anxiety Started Melatonin 5mg po qhs to promote rest The patient agreed on the treatment plan, understood the risk, benefit, alternative treatment, potential consequence of no treatment, and gave informed consent. Estimated period of time patient will need to remain in the hospital: [5] Plan for post-hospital care: [Outpatient] Medications and Allergies Allergies Allergy/AdvReac Type Severity Reaction Status Date / Time haloperidol [From Haldol] Allergy Unknown Verified 08/04/19 14:27 Home Medications Medication Instructions Recorded Confirmed Last Taken Type Acetaminophen [Tylenol] 325 mg PO Q4HR PRN 08/04/19 08/12/19 Unknown History Amlodipine Besylate [Norvasc] 5 mg PO DAILY 08/04/19 08/12/19 Unknown History Benztropine [Cogentin] 1 tab PO DAILY 08/04/19 08/12/19 Unknown History Magnesium Hydroxide [Milk of 30 ml PO Q8H PRN 08/04/19 08/12/19 Unknown History Magnesia] diphenhydrAMINE [Benadryl CAP] 50 mg PO Q4HR PRN 08/04/19 08/12/19 Unknown History traZODone [Desyrel] 100 mg PO QHS 08/04/19 08/12/[address] 1,000 mg PO QHS 08/12/19 08/12/19 Unknown History OXcarbazepine [Trileptal] 300 mg PO BID 08/12/19 08/12/19 Unknown History Prolixin 5 mg PO Q4H 08/12/19 08/12/19 Unknown History ZyPREXA 5 mg PO QA 08/12/19 08/12/19 Unknown History ZyPREXA 15 mg PO QHS 08/12/19 08/12/19 Unknown History Active Meds: Active Medications Acetaminophen (Tylenol) 650 mg PO Q6H PRN PRN Reason: Pain, Mild (1-3) Last Admin: 08/20/19 11:37 Dose: 650 mg Documented by: Benztropine Mesylate (Cogentin) 1 mg PO DAILY [facility] Last Admin: 08/22/19 10:59 Dose: 1 mg Documented by: Clindamycin HCl (Cleocin) 300 mg PO TID [facility] Stop: 08/26/19 08:01 Last Admin: 08/23/19 07:51 Dose: 300 mg Documented by: Clonazepam (Klonopin) 0.25 mg PO BID [facility] Last Admin: 08/22/19 21:14 Dose: 0.25 mg Documented by: Diphenhydramine HCl (Benadryl) 50 mg IM Q6H PRN PRN Reason: agitation Last Admin: 08/22/19 22:02 Dose: 50 mg Documented by: Fish Oil (Fish Oil) 2,000 mg PO BID [facility] Last Admin: 08/22/19 21:56 Dose: Not Given Documented by: Lorazepam (Ativan) 2 mg IM Q6H PRN PRN Reason: Agitation Last Admin: 08/21/19 12:26 Dose: 2 mg Documented by: Magnesium Hydroxide (Milk Of Magnesia) 30 ml PO Q8H PRN PRN Reason: Constipation Risperidone (Risperdal) 2 mg PO BID [facility] Last Admin: 08/22/19 21:56 Dose: Not Given Documented by: Trazodone HCl (Desyrel) 100 mg PO QHS [facility] Last Admin: 08/22/19 21:57 Dose: Not Given Documented by: Valproic Acid (Depakene Liq) 500 mg PO Q8HR [facility] Last Admin: 08/23/19 05:42 Dose: 500 mg Documented by: Results - Results Labs/Vitals: Laboratory Last Values WBC 14.6 K/mm3 (4.5-11.0) H 08/19/19 05:52 RBC 4.32 M/mm3 (3.65-5.03) 08/19/19 05:52 Hgb 13.2 gm/dl (11.8-15.2) 08/19/19 05:52 Hct 38.0 % (35.5-45.6) 08/19/19 05:52 MCV 88 fl (84-94) 08/19/19 05:52 MCH 31 pg (28-32) 08/19/19 05:52 MCHC 35 % (32-34) H 08/19/19 05:52 RDW 14.0 % (13.2-15.2) 08/19/19 05:52 Plt Count 237 K/mm3 (140-440) 08/19/19 05:52 Lymph % (Auto) 11.9 % (13.4-35.0) L 08/12/19 21:05 [place] % (Auto) 6.2 % (0.0-7.3) 08/12/19 21:05 Eos % (Auto) 1.0 % (0.0-4.3) 08/12/19 21:05 Baso % (Auto) 0.2 % (0.0-1.8) 08/12/19 21:05 Lymph # 1.0 K/mm3 (1.2-5.4) L 08/12/19 21:05 [place] # 0.6 K/mm3 (0.0-0.8) 08/12/19 21:05 Eos # 0.1 K/mm3 (0.0-0.4) 08/12/19 21:05 Baso # 0.0 K/mm3 (0.0-0.1) 08/12/19 21:05 Seg Neutrophils % 80.7 % (40.0-70.0) H 08/12/19 21:05 Seg Neutrophils # 7.1 K/mm3 (1.8-7.7) 08/12/19 21:05 Sodium 134 mmol/L (137-145) L 08/19/19 05:52 Potassium 3.6 mmol/L (3.6-5.0) 08/19/19 05:52 Chloride 95.4 mmol/L (98-107) L 08/19/19 05:52 Carbon Dioxide 25 mmol/L (22-30) 08/19/19 05:52 Anion Gap 17 mmol/L 08/19/19 05:52 BUN 18 mg/dL (9-20) 08/19/19 05:52 Creatinine 1.0 mg/dL (0.8-1.5) 08/19/19 05:52 Estimated GFR > 60 ml/min 08/19/19 05:52 BUN/Creatinine Ratio 18 % 08/19/19 05:52 Glucose 112 mg/dL (75-100) H 08/19/19 05:52 POC Glucose 150 (70-105) H 08/21/19 10:24 Hemoglobin A1c 5.0 % (4-6) 08/12/19 21:05 Calcium 8.5 mg/dL (8.4-10.2) 08/19/19 05:52 Total Bilirubin 0.90 mg/dL (0.1-1.2) 08/12/19 21:05 AST 39 units/L (5-40) 08/12/19 21:05 ALT 101 units/L (7-56) H 08/12/19 21:05 Alkaline Phosphatase 101 units/L (35-129) 08/12/19 21:05 Total Protein 5.7 g/dL (6.3-8.2) L 08/12/19 21:05 Albumin 3.0 g/dL (3.9-5) L 08/12/19 21:05 Albumin/Globulin Ratio 1.1 % 08/12/19 21:05 Triglycerides 123 mg/dL (2-149) 08/12/19 21:05 Cholesterol 178 mg/dL (50-199) 08/12/19 21:05 LDL Cholesterol Direct 111 mg/dL (50-130) 08/12/19 21:05 HDL Cholesterol 36 mg/dL (40-59) L 08/12/19 21:05 Cholesterol/HDL Ratio 4.94 % 08/12/19 21:05 TSH 2.460 mlU/mL (0.270-4.200) 08/12/19 21:05 Valproic Acid 68.4 ug/mL (50-100) 08/13/19 11:38 Last Vital Signs Temp 97.4 F L 08/22/19 19:36 Pulse 94 H 08/22/19 19:36 Resp 20 08/22/19 19:36 BP 122/78 08/22/19 19:36 Pulse Ox 96 08/22/19 19:36
[2019-08-23] MEDS ORDERED: FLUoxetine 10 MG TAB PO SCH (10:00)
[2019-08-23] MEDS: risperiDONE 1 MG TAB PO SCH ×2 (10:19→22:08)
[2019-08-23] MEDS: BENZTROPINE 1 MG TAB PO SCH (10:20)
[2019-08-23] MEDS: OMEGA-3 FATTY ACIDS/FISH OIL 1 GRAM CAP PO SCH ×2 (10:20→22:07)
[2019-08-23] MEDS: clonazePAM 0.5 MG TAB PO SCH ×2 (14:13→20:16)
[2019-08-23] MEDS: traZODone 100 MG TAB PO SCH (22:10)
[2019-08-23] MEDS: MELATONIN 5 MG TAB PO SCH (22:10)
[2019-08-24] MEDS: VALPROIC ACID 250 MG/5 ML ORAL LIQD PO SCH ×2 (06:14→22:45)
[2019-08-24] MEDS: CLINDAMYCIN 300 MG CAP PO SCH ×3 (07:58→22:53)
[2019-08-24] MEDS: clonazePAM 0.5 MG TAB PO SCH ×3 (07:58→22:50)
--- NOTE | 2019-08-24 08:03 | Progress Note ---
Subjective Date of service: 08/24/19 Principal diagnosis: Schizophrenia with prominent negative symptoms Subjective Comment: The patient's medical record was reviewed and the patient's progress was discussed with the medical staff. The nurse note states the patient refused all AM medication, nurse encourage pt several times pt strongly refused, pt state ' its for my mother, i am '. He compliant with afternoon med, refused breakfast only drink his ensure,being a man During my interview with the patient this morning, he is a/o x 1. He is pacing the unit. He is more coherent today than yesterday. He asked me, "Is Trump still in charge?" The patient states, "I'm taking too much medication," when asking him how was he doing. He could not answer when asking the patient of any hallucinations, "he states, maybe, but not sure." The patient denies SI/HI, he states, "no, I got a little lost along the way." The patient states, "I don't believe I slept that well," when asking him how he rested. Reason for continued inpatient treatment: The patient has improved, but still shows some confusion and disorganization. REVIEW OF SYSTEMS Unable to obtain MENTAL STATUS EXAMINATION Unable to assess Assessment Schizoaffective Disorder Treatment Plan Patient will be admitted for inpatient psychiatric evaluation, medication adjustment and close monitoring The patient's behavior, mood, sleep and appetite will be closely monitored. Patient will be enrolled in individual and group therapeutic sessions and encouraged to attend. Patient will be provided with a safe and structured environment. Patient's physical health needs will be addressed by the Hospitalist. Hospitalist Consulted Labs including CBC, CMP, Lipid profile and Hemoglobin A1C ordered UA to check for UTI Social Assessment will be completed and the Adon will work with patient and family to ensure a suitable and safe disposition Medication adjustment will be made as clinically indicated Usual Wellness Presybeterian/Preservation: Increased Depakote liquid to 500mg qam, 500mg q2pm, 1000mg qhs The patient agreed on the treatment plan, understood the risk, benefit, alternative treatment, potential consequence of no treatment, and gave informed consent. Estimated period of time patient will need to remain in the hospital: [5] Plan for post-hospital care: [Outpatient] Medications and Allergies Allergies Allergy/AdvReac Type Severity Reaction Status Date / Time haloperidol [From Haldol] Allergy Unknown Verified 08/04/19 14:27 Home Medications Medication Instructions Recorded Confirmed Last Taken Type Acetaminophen [Tylenol] 325 mg PO Q4HR PRN 08/04/19 08/12/19 Unknown History Amlodipine Besylate [Norvasc] 5 mg PO DAILY 08/04/19 08/12/19 Unknown History Benztropine [Cogentin] 1 tab PO DAILY 08/04/19 08/12/19 Unknown History Magnesium Hydroxide [Milk of 30 ml PO Q8H PRN 08/04/19 08/12/19 Unknown History Magnesia] diphenhydrAMINE [Benadryl CAP] 50 mg PO Q4HR PRN 08/04/19 08/12/19 Unknown History traZODone [Desyrel] 100 mg PO QHS 08/04/19 08/12/[address] 1,000 mg PO QHS 08/12/19 08/12/19 Unknown History OXcarbazepine [Trileptal] 300 mg PO BID 08/12/19 08/12/19 Unknown History Prolixin 5 mg PO Q4H 08/12/19 08/12/19 Unknown History ZyPREXA 5 mg PO QA 08/12/19 08/12/19 Unknown History ZyPREXA 15 mg PO QHS 08/12/19 08/12/19 Unknown History Active Meds: Active Medications Acetaminophen (Tylenol) 650 mg PO Q6H PRN PRN Reason: Pain, Mild (1-3) Last Admin: 08/20/19 11:37 Dose: 650 mg Documented by: Benztropine Mesylate (Cogentin) 1 mg PO DAILY [facility] Last Admin: 08/23/19 10:20 Dose: Not Given Documented by: Clindamycin HCl (Cleocin) 300 mg PO TID [facility] Stop: 08/26/19 08:01 Last Admin: 08/24/19 07:58 Dose: 300 mg Documented by: Clonazepam (Klonopin) 1 mg PO TID [facility] Last Admin: 08/24/19 07:58 Dose: 1 mg Documented by: Diphenhydramine HCl (Benadryl) 50 mg IM Q6H PRN PRN Reason: agitation Last Admin: 08/22/19 22:02 Dose: 50 mg Documented by: Fish Oil (Fish Oil) 2,000 mg PO BID [facility] Last Admin: 08/23/19 22:07 Dose: 2,000 mg Documented by: Lorazepam (Ativan) 2 mg IM Q6H PRN PRN Reason: Agitation Last Admin: 08/21/19 12:26 Dose: 2 mg Documented by: Magnesium Hydroxide (Milk Of Magnesia) 30 ml PO Q8H PRN PRN Reason: Constipation Last Admin: 08/23/19 14:12 Dose: 30 ml Documented by: Melatonin (Melatonin) 5 mg PO QHS [facility] Last Admin: 08/23/19 22:10 Dose: 5 mg Documented by: Risperidone (Risperdal) 3 mg PO BID [facility] Last Admin: 08/23/19 22:08 Dose: 3 mg Documented by: Trazodone HCl (Desyrel) 100 mg PO QHS [facility] Last Admin: 08/23/19 22:10 Dose: 100 mg Documented by: Valproic Acid (Depakene Liq) 500 mg PO Q8HR [facility] Last Admin: 08/24/19 06:14 Dose: 500 mg Documented by: Results - Results Labs/Vitals: Laboratory Last Values WBC 14.6 K/mm3 (4.5-11.0) H 08/19/19 05:52 RBC 4.32 M/mm3 (3.65-5.03) 08/19/19 05:52 Hgb 13.2 gm/dl (11.8-15.2) 08/19/19 05:52 Hct 38.0 % (35.5-45.6) 08/19/19 05:52 MCV 88 fl (84-94) 08/19/19 05:52 MCH 31 pg (28-32) 08/19/19 05:52 MCHC 35 % (32-34) H 08/19/19 05:52 RDW 14.0 % (13.2-15.2) 08/19/19 05:52 Plt Count 237 K/mm3 (140-440) 08/19/19 05:52 Lymph % (Auto) 11.9 % (13.4-35.0) L 08/12/19 21:05 [place] % (Auto) 6.2 % (0.0-7.3) 08/12/19 21:05 Eos % (Auto) 1.0 % (0.0-4.3) 08/12/19 21:05 Baso % (Auto) 0.2 % (0.0-1.8) 08/12/19 21:05 Lymph # 1.0 K/mm3 (1.2-5.4) L 08/12/19 21:05 [place] # 0.6 K/mm3 (0.0-0.8) 08/12/19 21:05 Eos # 0.1 K/mm3 (0.0-0.4) 08/12/19 21:05 Baso # 0.0 K/mm3 (0.0-0.1) 08/12/19 21:05 Seg Neutrophils % 80.7 % (40.0-70.0) H 08/12/19 21:05 Seg Neutrophils # 7.1 K/mm3 (1.8-7.7) 08/12/19 21:05 Sodium 134 mmol/L (137-145) L 08/19/19 05:52 Potassium 3.6 mmol/L (3.6-5.0) 08/19/19 05:52 Chloride 95.4 mmol/L (98-107) L 08/19/19 05:52 Carbon Dioxide 25 mmol/L (22-30) 08/19/19 05:52 Anion Gap 17 mmol/L 08/19/19 05:52 BUN 18 mg/dL (9-20) 08/19/19 05:52 Creatinine 1.0 mg/dL (0.8-1.5) 08/19/19 05:52 Estimated GFR > 60 ml/min 08/19/19 05:52 BUN/Creatinine Ratio 18 % 08/19/19 05:52 Glucose 112 mg/dL (75-100) H 08/19/19 05:52 POC Glucose 150 (70-105) H 08/21/19 10:24 Hemoglobin A1c 5.0 % (4-6) 08/12/19 21:05 Calcium 8.5 mg/dL (8.4-10.2) 08/19/19 05:52 Total Bilirubin 0.90 mg/dL (0.1-1.2) 08/12/19 21:05 AST 39 units/L (5-40) 08/12/19 21:05 ALT 101 units/L (7-56) H 08/12/19 21:05 Alkaline Phosphatase 101 units/L (35-129) 08/12/19 21:05 Total Protein 5.7 g/dL (6.3-8.2) L 08/12/19 21:05 Albumin 3.0 g/dL (3.9-5) L 08/12/19 21:05 Albumin/Globulin Ratio 1.1 % 08/12/19 21:05 Triglycerides 123 mg/dL (2-149) 08/12/19 21:05 Cholesterol 178 mg/dL (50-199) 08/12/19 21:05 LDL Cholesterol Direct 111 mg/dL (50-130) 08/12/19 21:05 HDL Cholesterol 36 mg/dL (40-59) L 08/12/19 21:05 Cholesterol/HDL Ratio 4.94 % 08/12/19 21:05 TSH 2.460 mlU/mL (0.270-4.200) 08/12/19 21:05 Valproic Acid 52.2 ug/mL (50-100) 08/24/19 06:03 Last Vital Signs Temp 98.4 F 08/23/19 19:06 Pulse 99 H 08/23/19 19:06 Resp 18 08/23/19 19:06 BP 108/57 08/23/19 19:06 Pulse Ox 94 08/23/19 19:06
[2019-08-24] MEDS: risperiDONE 1 MG TAB PO SCH ×2 (10:34→22:52)
[2019-08-24] MEDS: BENZTROPINE 1 MG TAB PO SCH (10:35)
[2019-08-24] MEDS: VALPROIC ACID 250 MG/5 ML ORAL LIQD FEEDTUBE SCH ×2 (10:36→16:38)
[2019-08-24] MEDS: OMEGA-3 FATTY ACIDS/FISH OIL 1 GRAM CAP PO SCH ×2 (10:37→22:48)
[2019-08-24] MEDS: MELATONIN 5 MG TAB PO SCH (22:53)
[2019-08-24] MEDS: traZODone 100 MG TAB PO SCH (22:53)
[2019-08-25 06:41] LABS: Basophils % (Auto) 0.3 % (0.0-1.8); Eosinophils % (Auto) 0.4 % (0.0-4.3); Hemoglobin 12.5 gm/dl (11.8-15.2); Lymphocytes # (Auto) 1.1 K/mm3 (1.2-5.4); Lymphocytes % (Auto) 8.3 % (13.4-35.0); Mean Corpuscular HGB Conc 34 % (32-34); Mean Corpuscular Volume 88 fl (84-94); Monocytes # (Auto) 0.9 K/mm3 (0.0-0.8); Monocytes % (Auto) 7.1 % (0.0-7.3); Platelet Count 204 K/mm3 (140-440); Red Blood Count 4.21 M/mm3 (3.65-5.03); Red Cell Distribution Width 13.8 % (13.2-15.2)
--- NOTE | 2019-08-25 07:58 | Progress Note ---
Subjective Date of service: 08/25/19 Principal diagnosis: Schizophrenia with prominent negative symptoms Subjective Comment: The patient's medical record was reviewed and the patient's progress was discussed with the medical staff. The nurse note states the patient rested most part of the evening with frequently waking up at night, but re-directable. He takes his medications, but with resistance. During my interview with the patient this morning, he is lying in bed, awake. He is a/o x 2. He makes good eye contact. He states, "somebody tied my up real tight last night." He then says, "I can't believe everybody is falling for it." When asking the patient about his mood, he replies, "I'm really not sure." When rephrasing the question and asking the patient was he depressed, or anxious, he again replied, "I'm just not sure." He denies SI/HI. He denies hallucinations of any kind. He says he slept, "okay" and he says his appetite is "okay." Reason for continued inpatient treatment: The patient still shows some confusion and disorganization. He is delusional. REVIEW OF SYSTEMS Constitutional: Negative for weight loss ENT: Negative for stridor Respiratory: Negative for cough or hemoptysis All other systems reviewed and are negative MENTAL STATUS EXAMINATION General Appearance: Dressed appropriately Behavior: Calm and cooperative. Mood: "I'm not sure" Affect: Congruent with stated mood Speech: Normal tome and pace Thought Process: Goal directed Thought Content: Suicidal Ideation: Denies Homicidal Ideation: Denies Hallucinations: Denies Delusions: Yes Insight and Judgment: Limited Memory/Cognition: Limited Assessment Schizoaffective Disorder Treatment Plan Patient will be admitted for inpatient psychiatric evaluation, medication adjustment and close monitoring The patient's behavior, mood, sleep and appetite will be closely monitored. Patient will be enrolled in individual and group therapeutic sessions and encouraged to attend. Patient will be provided with a safe and structured environment. Patient's physical health needs will be addressed by the Hospitalist. Hospitalist Consulted Labs including CBC, CMP, Lipid profile and Hemoglobin A1C ordered Social Assessment will be completed and the Blueprint Cutter will work with patient and family to ensure a suitable and safe disposition Medication adjustment will be made as clinically indicated Usual Wellness Yazdanism/Preservation: No changes made today Changes made yesterday The patient agreed on the treatment plan, understood the risk, benefit, alternative treatment, potential consequence of no treatment, and gave informed consent. Estimated period of time patient will need to remain in the hospital: [4] Plan for post-hospital care: [Outpatient] Medications and Allergies Allergies Allergy/AdvReac Type Severity Reaction Status Date / Time haloperidol [From Haldol] Allergy Unknown Verified 08/04/19 14:27 Home Medications Medication Instructions Recorded Confirmed Last Taken Type Acetaminophen [Tylenol] 325 mg PO Q4HR PRN 08/04/19 08/12/19 Unknown History Amlodipine Besylate [Norvasc] 5 mg PO DAILY 08/04/19 08/12/19 Unknown History Benztropine [Cogentin] 1 tab PO DAILY 08/04/19 08/12/19 Unknown History Magnesium Hydroxide [Milk of 30 ml PO Q8H PRN 08/04/19 08/12/19 Unknown History Magnesia] diphenhydrAMINE [Benadryl CAP] 50 mg PO Q4HR PRN 08/04/19 08/12/19 Unknown History traZODone [Desyrel] 100 mg PO QHS 08/04/19 08/12/[address] 1,000 mg PO QHS 08/12/19 08/12/19 Unknown History OXcarbazepine [Trileptal] 300 mg PO BID 08/12/19 08/12/19 Unknown History Prolixin 5 mg PO Q4H 08/12/19 08/12/19 Unknown History ZyPREXA 5 mg PO QAM 08/12/19 08/12/19 Unknown History ZyPREXA 15 mg PO QHS 08/12/19 08/12/19 Unknown History Active Meds: Active Medications Acetaminophen (Tylenol) 650 mg PO Q6H PRN PRN Reason: Pain, Mild (1-3) Last Admin: 08/20/19 11:37 Dose: 650 mg Documented by: Benztropine Mesylate (Cogentin) 1 mg PO DAILY [facility] Last Admin: 08/24/19 10:35 Dose: 1 mg Documented by: Clindamycin HCl (Cleocin) 300 mg PO TID [facility] Stop: 08/26/19 08:01 Last Admin: 08/24/19 22:53 Dose: 300 mg Documented by: Clonazepam (Klonopin) 1 mg PO TID [facility] Last Admin: 08/24/19 22:50 Dose: 1 mg Documented by: Diphenhydramine HCl (Benadryl) 50 mg IM Q6H PRN PRN Reason: agitation Last Admin: 08/22/19 22:02 Dose: 50 mg Documented by: Fish Oil (Fish Oil) 2,000 mg PO BID [facility] Last Admin: 08/24/19 22:48 Dose: 1,000 mg Documented by: Lorazepam (Ativan) 2 mg IM Q6H PRN PRN Reason: Agitation Last Admin: 08/21/19 12:26 Dose: 2 mg Documented by: Magnesium Hydroxide (Milk Of Magnesia) 30 ml PO Q8H PRN PRN Reason: Constipation Last Admin: 08/23/19 14:12 Dose: 30 ml Documented by: Melatonin (Melatonin) 5 mg PO QHS [facility] Last Admin: 08/24/19 22:53 Dose: 5 mg Documented by: Risperidone (Risperdal) 3 mg PO BID [facility] Last Admin: 08/24/19 22:52 Dose: 3 mg Documented by: Trazodone HCl (Desyrel) 100 mg PO QHS [facility] Last Admin: 08/24/19 22:53 Dose: 100 mg Documented by: Valproic Acid (Depakene Liq) 500 mg FEEDTUBE DAILY [facility] Last Admin: 08/24/19 10:36 Dose: 500 mg Documented by: Valproic Acid (Depakene Liq) 500 mg FEEDTUBE DAILY@1400 [facility] Last Admin: 08/24/19 16:38 Dose: Not Given Documented by: Valproic Acid (Depakene Liq) 1,000 mg PO QHS [facility] Last Admin: 08/24/19 22:45 Dose: 1,000 mg Documented by: Results - Results Labs/Vitals: Laboratory Last Values WBC 12.6 K/mm3 (4.5-11.0) H 08/25/19 05:53 RBC 4.21 M/mm3 (3.65-5.03) 08/25/19 05:53 Hgb 12.5 gm/dl (11.8-15.2) 08/25/19 05:53 Hct 37.0 % (35.5-45.6) 08/25/19 05:53 MCV 88 fl (84-94) 08/25/19 05:53 MCH 30 pg (28-32) 08/25/19 05:53 MCHC 34 % (32-34) 08/25/19 05:53 RDW 13.8 % (13.2-15.2) 08/25/19 05:53 Plt Count 204 K/mm3 (140-440) 08/25/19 05:53 Lymph % (Auto) 8.3 % (13.4-35.0) L 08/25/19 05:53 [place] % (Auto) 7.1 % (0.0-7.3) 08/25/19 05:53 Eos % (Auto) 0.4 % (0.0-4.3) 08/25/19 05:53 Baso % (Auto) 0.3 % (0.0-1.8) 08/25/19 05:53 Lymph # 1.1 K/mm3 (1.2-5.4) L 08/25/19 05:53 [place] # 0.9 K/mm3 (0.0-0.8) H 08/25/19 05:53 Eos # 0.0 K/mm3 (0.0-0.4) 08/25/19 05:53 Baso # 0.0 K/mm3 (0.0-0.1) 08/25/19 05:53 Seg Neutrophils % 83.9 % (40.0-70.0) H 08/25/19 05:53 Seg Neutrophils # 10.6 K/mm3 (1.8-7.7) H 08/25/19 05:53 Sodium 134 mmol/L (137-145) L 08/19/19 05:52 Potassium 3.6 mmol/L (3.6-5.0) 08/19/19 05:52 Chloride 95.4 mmol/L (98-107) L 08/19/19 05:52 Carbon Dioxide 25 mmol/L (22-30) 08/19/19 05:52 Anion Gap 17 mmol/L 08/19/19 05:52 BUN 18 mg/dL (9-20) 08/19/19 05:52 Creatinine 1.0 mg/dL (0.8-1.5) 08/19/19 05:52 Estimated GFR > 60 ml/min 08/19/19 05:52 BUN/Creatinine Ratio 18 % 08/19/19 05:52 Glucose 112 mg/dL (75-100) H 08/19/19 05:52 POC Glucose 150 (70-105) H 08/21/19 10:24 Hemoglobin A1c 5.0 % (4-6) 08/12/19 21:05 Calcium 8.5 mg/dL (8.4-10.2) 08/19/19 05:52 Total Bilirubin 0.90 mg/dL (0.1-1.2) 08/12/19 21:05 AST 39 units/L (5-40) 08/12/19 21:05 ALT 101 units/L (7-56) H 08/12/19 21:05 Alkaline Phosphatase 101 units/L (35-129) 08/12/19 21:05 Total Protein 5.7 g/dL (6.3-8.2) L 08/12/19 21:05 Albumin 3.0 g/dL (3.9-5) L 08/12/19 21:05 Albumin/Globulin Ratio 1.1 % 08/12/19 21:05 Triglycerides 123 mg/dL (2-149) 08/12/19 21:05 Cholesterol 178 mg/dL (50-199) 08/12/19 21:05 LDL Cholesterol Direct 111 mg/dL (50-130) 08/12/19 21:05 HDL Cholesterol 36 mg/dL (40-59) L 08/12/19 21:05 Cholesterol/HDL Ratio 4.94 % 08/12/19 21:05 TSH 2.460 mlU/mL (0.270-4.200) 08/12/19 21:05 Valproic Acid 52.2 ug/mL (50-100) 08/24/19 06:03 Last Vital Signs Temp 98.2 F 08/24/19 19:49 Pulse 72 08/24/19 19:49 Resp 20 08/24/19 19:49 BP 126/77 08/24/19 19:49 Pulse Ox 98 08/24/19 19:49
[2019-08-25 08:32] LABS: Bilirubin,Urine NEG (Negative); Blood,Urine NEG (Negative); Color,Urine Yellow (Yellow); Protein,Urine <15 mg/dL mg/dL (Negative); Urobilinogen,Urine < 2.0 mg/dL (<2.0)
[2019-08-25] MEDS: CLINDAMYCIN 300 MG CAP PO SCH ×3 (10:27→19:54)
[2019-08-25] MEDS: OMEGA-3 FATTY ACIDS/FISH OIL 1 GRAM CAP PO SCH ×2 (10:27→21:09)
[2019-08-25] MEDS: VALPROIC ACID 250 MG/5 ML ORAL LIQD FEEDTUBE SCH ×2 (10:27→17:25)
[2019-08-25] MEDS: clonazePAM 0.5 MG TAB PO SCH ×3 (10:28→19:54)
[2019-08-25] MEDS: risperiDONE 1 MG TAB PO SCH ×2 (10:29→21:09)
[2019-08-25] MEDS: BENZTROPINE 1 MG TAB PO SCH (10:29)
[2019-08-25] MEDS: MELATONIN 5 MG TAB PO SCH (21:09)
[2019-08-25] MEDS: VALPROIC ACID 250 MG/5 ML ORAL LIQD PO SCH (21:09)
[2019-08-25] MEDS: traZODone 100 MG TAB PO SCH (21:09)
--- NOTE | 2019-08-26 09:22 | Progress Note ---
Subjective Date of service: 08/26/19 Principal diagnosis: Schizophrenia with prominent negative symptoms Subjective Comment: The patient's medical record was reviewed and the patient's progress was discussed with the medical staff. The nurse note states the patient slept about 6 hours, but had several bathroom breaks and thought he wet the bed. During my interview with the patient this morning, he is awake in his room and getting dressed. He is a/o x 1-2, but conversational. He could not tell what the date was. The patient make good eye contact. He was calm and cooperative. He describes his mood as "okay, but I guess it could be better." He says, "I'm a little tired." He told me he was up a lot last night. The patient states, "I just couldn't sleep, I felt like I used the bathroom a lot." He asked, "by any chance am I going home today." The patient denies SI/HI, stating, "no not at all." He also denies hallucinations of any kind. Spoke with the patient's son, Jimmy at [phone]. He three-ways the patient's spouse in, Radha. The patient's progress was discussed and discharge planning. The son states he was here to take the patient back to [place]. Advised the son that the patient has significantly improved, but he's still not quite there yet. Recommended that the patient is transported by POV instead of plane. The son says they have no intentions on getting on a plane but will drive the patient by POV. Also discussed medications with the family. The spouse and son are concerned about the Invega injection and states when the patient had the first injection, they felt he was "different, and never saw him like that before." She says the patient "was beating on the glass and they could not hold a conversation with him" The son also expressed that he felt like the patient was different after the injection as well. Radha also expressed concerns with the patient being able to continue the Invega injection monthly. They are uncomfortable with him getting second dose. Informed the family that we would not give the patient the second injection if they had concerns about the medication causing side effects. The also mentioned needing an "OD, Organization Determination" in order to get the patient in a facility in [place] for care. Advised the that we typically don't do that and it was unfamiliar. Reason for continued inpatient treatment: The patient has improved, but still shows some confusion and disorganization at times. REVIEW OF SYSTEMS Constitutional: Negative for weight loss ENT: Negative for stridor Respiratory: Negative for cough or hemoptysis All other systems reviewed and are negative MENTAL STATUS EXAMINATION General Appearance: Dressed appropriately Behavior: Calm and cooperative. Mood: "okay" Affect: Congruent with stated mood Speech: Normal tome and pace Thought Process: Goal directed Thought Content: Suicidal Ideation: Denies Homicidal Ideation: Denies Hallucinations: Denies Delusions: None elicited Insight and Judgment: Limited Memory/Cognition: Limited Assessment Schizoaffective Disorder Treatment Plan Patient will be admitted for inpatient psychiatric evaluation, medication adjustment and close monitoring The patient's behavior, mood, sleep and appetite will be closely monitored. Patient will be enrolled in individual and group therapeutic sessions and encouraged to attend. Patient will be provided with a safe and structured environment. Patient's physical health needs will be addressed by the Hospitalist. Hospitalist Consulted Labs including CBC, CMP, Lipid profile and Hemoglobin A1C ordered Social Assessment will be completed and the Lapel Padder Blindstitch will work with patient and family to ensure a suitable and safe disposition Medication adjustment will be made as clinically indicated Usual Wellness Spiritism/Preservation: Will not give 2nd dose of Invega, family has concerns and not comfortable with it being given. The patient agreed on the treatment plan, understood the risk, benefit, alternative treatment, potential consequence of no treatment, and gave informed consent. Estimated period of time patient will need to remain in the hospital: [4] Plan for post-hospital care: [Outpatient] Medications and Allergies Allergies Allergy/AdvReac Type Severity Reaction Status Date / Time haloperidol [From Haldol] Allergy Unknown Verified 08/04/19 14:27 Home Medications Medication Instructions Recorded Confirmed Last Taken Type Acetaminophen [Tylenol] 325 mg PO Q4HR PRN 08/04/19 08/12/19 Unknown History Amlodipine Besylate [Norvasc] 5 mg PO DAILY 08/04/19 08/12/19 Unknown History Benztropine [Cogentin] 1 tab PO DAILY 08/04/19 08/12/19 Unknown History Magnesium Hydroxide [Milk of 30 ml PO Q8H PRN 08/04/19 08/12/19 Unknown History Magnesia] diphenhydrAMINE [Benadryl CAP] 50 mg PO Q4HR PRN 08/04/19 08/12/19 Unknown History OXcarbazepine [Trileptal] 300 mg PO BID 08/12/19 08/12/19 Unknown History Prolixin 5 mg PO Q4H 08/12/19 08/12/19 Unknown History ZyPREXA 5 mg PO QAM 08/12/19 08/12/19 Unknown History ZyPREXA 15 mg PO QHS 08/12/19 08/12/[address] 1,000 mg PO QHS #30 08/26/19 Unknown Rx Melatonin [Melatonin 5MG TAB] 5 mg PO QHS #30 tablet 08/26/19 Unknown Rx VALPROIC ACID Liq [DepaKENE Liq] 500 mg PO DAILY #30 tab 08/26/19 Unknown Rx VALPROIC ACID Liq [DepaKENE Liq] 500 mg PO DAILY@1400 #30 tab 08/26/19 Unknown Rx clonazePAM [KlonoPIN] 1 mg PO TID #90 tablet 08/26/19 Unknown Rx traZODone [Desyrel] 100 mg PO QHS #30 08/26/19 Unknown Rx Active Meds: Active Medications Acetaminophen (Tylenol) 650 mg PO Q6H PRN PRN Reason: Pain, Mild (1-3) Last Admin: 08/20/19 11:37 Dose: 650 mg Documented by: Benztropine Mesylate (Cogentin) 1 mg PO DAILY [facility] Last Admin: 08/25/19 10:29 Dose: 1 mg Documented by: Clonazepam (Klonopin) 1 mg PO TID [facility] Last Admin: 08/25/19 19:54 Dose: 1 mg Documented by: Diphenhydramine HCl (Benadryl) 50 mg IM Q6H PRN PRN Reason: agitation Last Admin: 08/22/19 22:02 Dose: 50 mg Documented by: Fish Oil (Fish Oil) 2,000 mg PO BID [facility] Last Admin: 08/25/19 21:09 Dose: 2,000 mg Documented by: Lorazepam (Ativan) 2 mg IM Q6H PRN PRN Reason: Agitation Last Admin: 08/21/19 12:26 Dose: 2 mg Documented by: Magnesium Hydroxide (Milk Of Magnesia) 30 ml PO Q8H PRN PRN Reason: Constipation Last Admin: 08/23/19 14:12 Dose: 30 ml Documented by: Melatonin (Melatonin) 5 mg PO QHS [facility] Last Admin: 08/25/19 21:09 Dose: 5 mg Documented by: Miscellaneous Medication (Invega 156) 156 mg IM ONCE ONE Stop: 08/26/19 13:01 Trazodone HCl (Desyrel) 100 mg PO QHS [facility] Last Admin: 08/25/19 21:09 Dose: 100 mg Documented by: Valproic Acid (Depakene Liq) 1,000 mg PO QHS [facility] Last Admin: 08/25/19 21:09 Dose: 1,000 mg Documented by: Valproic Acid (Depakene Liq) 500 mg PO DAILY [facility] Valproic Acid (Depakene Liq) 500 mg PO DAILY@1400 [facility] Results - Results Labs/Vitals: Laboratory Last Values WBC 12.6 K/mm3 (4.5-11.0) H 08/25/19 05:53 RBC 4.21 M/mm3 (3.65-5.03) 08/25/19 05:53 Hgb 12.5 gm/dl (11.8-15.2) 08/25/19 05:53 Hct 37.0 % (35.5-45.6) 08/25/19 05:53 MCV 88 fl (84-94) 08/25/19 05:53 MCH 30 pg (28-32) 08/25/19 05:53 MCHC 34 % (32-34) 08/25/19 05:53 RDW 13.8 % (13.2-15.2) 08/25/19 05:53 Plt Count 204 K/mm3 (140-440) 08/25/19 05:53 Lymph % (Auto) 8.3 % (13.4-35.0) L 08/25/19 05:53 [place] % (Auto) 7.1 % (0.0-7.3) 08/25/19 05:53 Eos % (Auto) 0.4 % (0.0-4.3) 08/25/19 05:53 Baso % (Auto) 0.3 % (0.0-1.8) 08/25/19 05:53 Lymph # 1.1 K/mm3 (1.2-5.4) L 08/25/19 05:53 [place] # 0.9 K/mm3 (0.0-0.8) H 08/25/19 05:53 Eos # 0.0 K/mm3 (0.0-0.4) 08/25/19 05:53 Baso # 0.0 K/mm3 (0.0-0.1) 08/25/19 05:53 Seg Neutrophils % 83.9 % (40.0-70.0) H 08/25/19 05:53 Seg Neutrophils # 10.6 K/mm3 (1.8-7.7) H 08/25/19 05:53 Sodium 134 mmol/L (137-145) L 08/19/19 05:52 Potassium 3.6 mmol/L (3.6-5.0) 08/19/19 05:52 Chloride 95.4 mmol/L (98-107) L 08/19/19 05:52 Carbon Dioxide 25 mmol/L (22-30) 08/19/19 05:52 Anion Gap 17 mmol/L 08/19/19 05:52 BUN 18 mg/dL (9-20) 08/19/19 05:52 Creatinine 1.0 mg/dL (0.8-1.5) 08/19/19 05:52 Estimated GFR > 60 ml/min 08/19/19 05:52 BUN/Creatinine Ratio 18 % 08/19/19 05:52 Glucose 112 mg/dL (75-100) H 08/19/19 05:52 POC Glucose 150 (70-105) H 08/21/19 10:24 Hemoglobin A1c 5.0 % (4-6) 08/12/19 21:05 Calcium 8.5 mg/dL (8.4-10.2) 08/19/19 05:52 Total Bilirubin 0.90 mg/dL (0.1-1.2) 08/12/19 21:05 AST 39 units/L (5-40) 08/12/19 21:05 ALT 101 units/L (7-56) H 08/12/19 21:05 Alkaline Phosphatase 101 units/L (35-129) 08/12/19 21:05 Total Protein 5.7 g/dL (6.3-8.2) L 08/12/19 21:05 Albumin 3.0 g/dL (3.9-5) L 08/12/19 21:05 Albumin/Globulin Ratio 1.1 % 08/12/19 21:05 Triglycerides 123 mg/dL (2-149) 08/12/19 21:05 Cholesterol 178 mg/dL (50-199) 08/12/19 21:05 LDL Cholesterol Direct 111 mg/dL (50-130) 08/12/19 21:05 HDL Cholesterol 36 mg/dL (40-59) L 08/12/19 21:05 Cholesterol/HDL Ratio 4.94 % 08/12/19 21:05 TSH 2.460 mlU/mL (0.270-4.200) 08/12/19 21:05 Urine Color Yellow (Yellow) 08/25/19 Unknown Urine Turbidity Clear (Clear) 08/25/19 Unknown Urine pH 7.0 (5.0-7.0) 08/25/19 Unknown Ur Specific [place] 1.005 (1.003-1.030) 08/25/19 Unknown Urine Protein <15 mg/dl mg/dL (Negative) 08/25/19 Unknown Urine Glucose (UA) Neg mg/dL (Negative) 08/25/19 Unknown Urine Ketones Tr mg/dL (Negative) 08/25/19 Unknown Urine Blood Neg (Negative) 08/25/19 Unknown Urine Nitrite Neg (Negative) 08/25/19 Unknown Urine Bilirubin Neg (Negative) 08/25/19 Unknown Urine Urobilinogen < 2.0 mg/dL (<2.0) 08/25/19 Unknown Ur Leukocyte Esterase Sm (Negative) 08/25/19 Unknown Urine WBC (Auto) 6.0 /HPF (0.0-6.0) 08/25/19 Unknown Urine RBC (Auto) 1.0 /HPF (0.0-6.0) 08/25/19 Unknown Valproic Acid 52.2 ug/mL (50-100) 08/24/19 06:03 Last Vital Signs Temp 98.5 F 08/25/19 22:00 Pulse 98 H 08/25/19 22:00 Resp 20 08/25/19 22:00 BP 129/73 08/25/19 22:00 Pulse Ox 99 08/25/19 22:00
--- NOTE | 2019-08-26 09:45 | Discharge Summary ---
Providers - Providers Date of Admission: 08/12/19 17:40 Attending physician: GIANCARLO LEVY MD 08/12/19 16:56 Consult to Physician [CONS] Routine Comment: Consulting Provider: REGGIE CORDERO Physician Instructions: Reason For Exam: manage medical conditions 08/17/19 16:18 Consult to Dietitian/Nutrition [CONS] Routine Physician Instructions: Reason For Exam: Pt not eating well. His requst dagoberto Ensure Reason for Consult: Poor oral intake 08/19/19 07:55 Consult to Wound/ET Nurse [CONS] Routine Reason For Exam: wound eval Primary care physician: TECHNICAL SOLUTIONS ENGINEER Hospitalization Hospital course: The patient was provided inpatient psychiatric treatment with safe and supportive care, medication adjustment, adverse effect monitoring, medical evaluations, medical treatments, assessment and psycho-education, family involvement of patient progress, medication management, and discharge planning. The patient's mood, cognition, behavior, moral support are improved and stabilized. At the time of discharge, the patient was calm, cooperative, had no thoughts of self harm, no endangering behavior and no debilitating adverse effects. The patient also expressed no hallucinations of any kind. The patient agreed on potential consequences of no treatment and gave informed consent. Disposition: DC-01 TO HOME OR SELFCARE Time spent for discharge: 58 Allergies/Adverse Reactions: Allergies haloperidol [From Haldol] Allergy (Verified 08/04/19 14:27) Unknown Vital Signs: Last Vital Signs Temp 98.5 F 08/25/19 22:00 Pulse 98 H 08/25/19 22:00 Resp 20 08/25/19 22:00 BP 129/73 08/25/19 22:00 Pulse Ox 99 08/25/19 22:00 Last Lab: Laboratory Last Values WBC 12.6 K/mm3 (4.5-11.0) H 08/25/19 05:53 RBC 4.21 M/mm3 (3.65-5.03) 08/25/19 05:53 Hgb 12.5 gm/dl (11.8-15.2) 08/25/19 05:53 Hct 37.0 % (35.5-45.6) 08/25/19 05:53 MCV 88 fl (84-94) 08/25/19 05:53 MCH 30 pg (28-32) 08/25/19 05:53 MCHC 34 % (32-34) 08/25/19 05:53 RDW 13.8 % (13.2-15.2) 08/25/19 05:53 Plt Count 204 K/mm3 (140-440) 08/25/19 05:53 Lymph % (Auto) 8.3 % (13.4-35.0) L 08/25/19 05:53 [place] % (Auto) 7.1 % (0.0-7.3) 08/25/19 05:53 Eos % (Auto) 0.4 % (0.0-4.3) 08/25/19 05:53 Baso % (Auto) 0.3 % (0.0-1.8) 08/25/19 05:53 Lymph # 1.1 K/mm3 (1.2-5.4) L 08/25/19 05:53 [place] # 0.9 K/mm3 (0.0-0.8) H 08/25/19 05:53 Eos # 0.0 K/mm3 (0.0-0.4) 08/25/19 05:53 Baso # 0.0 K/mm3 (0.0-0.1) 08/25/19 05:53 Seg Neutrophils % 83.9 % (40.0-70.0) H 08/25/19 05:53 Seg Neutrophils # 10.6 K/mm3 (1.8-7.7) H 08/25/19 05:53 Sodium 134 mmol/L (137-145) L 08/19/19 05:52 Potassium 3.6 mmol/L (3.6-5.0) 08/19/19 05:52 Chloride 95.4 mmol/L (98-107) L 08/19/19 05:52 Carbon Dioxide 25 mmol/L (22-30) 08/19/19 05:52 Anion Gap 17 mmol/L 08/19/19 05:52 BUN 18 mg/dL (9-20) 08/19/19 05:52 Creatinine 1.0 mg/dL (0.8-1.5) 08/19/19 05:52 Estimated GFR > 60 ml/min 08/19/19 05:52 BUN/Creatinine Ratio 18 % 08/19/19 05:52 Glucose 112 mg/dL (75-100) H 08/19/19 05:52 POC Glucose 150 (70-105) H 08/21/19 10:24 Hemoglobin A1c 5.0 % (4-6) 08/12/19 21:05 Calcium 8.5 mg/dL (8.4-10.2) 08/19/19 05:52 Total Bilirubin 0.90 mg/dL (0.1-1.2) 08/12/19 21:05 AST 39 units/L (5-40) 08/12/19 21:05 ALT 101 units/L (7-56) H 08/12/19 21:05 Alkaline Phosphatase 101 units/L (35-129) 08/12/19 21:05 Total Protein 5.7 g/dL (6.3-8.2) L 08/12/19 21:05 Albumin 3.0 g/dL (3.9-5) L 08/12/19 21:05 Albumin/Globulin Ratio 1.1 % 08/12/19 21:05 Triglycerides 123 mg/dL (2-149) 08/12/19 21:05 Cholesterol 178 mg/dL (50-199) 08/12/19 21:05 LDL Cholesterol Direct 111 mg/dL (50-130) 08/12/19 21:05 HDL Cholesterol 36 mg/dL (40-59) L 08/12/19 21:05 Cholesterol/HDL Ratio 4.94 % 08/12/19 21:05 TSH 2.460 mlU/mL (0.270-4.200) 08/12/19 21:05 Urine Color Yellow (Yellow) 08/25/19 Unknown Urine Turbidity Clear (Clear) 08/25/19 Unknown Urine pH 7.0 (5.0-7.0) 08/25/19 Unknown Ur Specific [place] 1.005 (1.003-1.030) 08/25/19 Unknown Urine Protein <15 mg/dl mg/dL (Negative) 08/25/19 Unknown Urine Glucose (UA) Neg mg/dL (Negative) 08/25/19 Unknown Urine Ketones Tr mg/dL (Negative) 08/25/19 Unknown Urine Blood Neg (Negative) 08/25/19 Unknown Urine Nitrite Neg (Negative) 08/25/19 Unknown Urine Bilirubin Neg (Negative) 08/25/19 Unknown Urine Urobilinogen < 2.0 mg/dL (<2.0) 08/25/19 Unknown Ur Leukocyte Esterase Sm (Negative) 08/25/19 Unknown Urine WBC (Auto) 6.0 /HPF (0.0-6.0) 08/25/19 Unknown Urine RBC (Auto) 1.0 /HPF (0.0-6.0) 08/25/19 Unknown Valproic Acid 52.2 ug/mL (50-100) 08/24/19 06:03 Core Measure Documentation - Palliative Care Palliative Care/ Comfort Measures: Not Applicable - Core Measures Any of the following diagnoses?: none Exam - Constitutional Vitals: Temp Pulse Resp BP Pulse Ox 98.5 F 98 H 20 129/73 99 08/25/19 22:00 08/25/19 22:00 08/25/19 22:00 08/25/19 22:00 08/25/19 22:00 General appearance: Present: no acute distress, well-nourished - EENT Eyes: Present: PERRL, EOM intact ENT: hearing intact, clear oral mucosa - Neck Neck: Present: supple, normal ROM - Respiratory Respiratory effort: normal Plan Activity: advance as tolerated Weight Bearing Status: Weight Bear as Tolerated Care Plan Goals: Maintain good and stable mental health Plan of Treatment: The patient should be compliant with medications, not to use drugs, and not to drink alcohol. The patient understands that if suicidal ideas, homicidal ideas or any endangering feeling arise, the patient should seek assistance including, but not limited to crisis hotline, 911 and/or the emergency room. Health Concerns: DVT, Encephalopathy, Hypernatremia Follow up with: PRIMARY CARE, [Primary Care Provider] - 7 Days Prescriptions: Depakote Dr 1,000 mg PO QHS #30 traZODone [Desyrel] 100 mg PO QHS #30 Melatonin [Melatonin 5MG TAB] 5 mg PO QHS #30 tablet VALPROIC ACID Liq [DepaKENE Liq] 500 mg PO DAILY@1400 #30 tab VALPROIC ACID Liq [DepaKENE Liq] 500 mg PO DAILY #30 tab clonazePAM [KlonoPIN] 1 mg PO TID #90 tablet
[2019-08-26] MEDS ORDERED: VALPROIC ACID 250 MG/5 ML ORAL LIQD PO SCH ×2 (10:00→14:00)
[2019-08-26] MEDS ORDERED: DIVALPROEX DR 500 MG TAB PO SCH ×4 (10:30→22:00)
[2019-08-26] MEDS: BENZTROPINE 1 MG TAB PO SCH (10:35)
[2019-08-26] MEDS: risperiDONE 1 MG TAB PO SCH ×2 (10:35→21:19)
[2019-08-26] MEDS: CLINDAMYCIN 300 MG CAP PO SCH (10:35)
[2019-08-26] MEDS: OMEGA-3 FATTY ACIDS/FISH OIL 1 GRAM CAP PO SCH ×2 (10:36→21:20)
[2019-08-26] MEDS: clonazePAM 0.5 MG TAB PO SCH ×3 (10:39→21:20)
[2019-08-26] MEDS ORDERED: INVEGA IM ONE (13:00)
[2019-08-26] MEDS: VALPROIC ACID 250 MG/5 ML ORAL LIQD PO SCH ×3 (13:44→22:00)
[2019-08-26] MEDS: traZODone 100 MG TAB PO SCH (21:20)
[2019-08-26] MEDS: MELATONIN 5 MG TAB PO SCH (21:24)
--- NOTE | 2019-08-27 07:01 | Progress Note ---
Subjective Date of service: 08/27/19 Principal diagnosis: Schizophrenia with prominent negative symptoms Subjective Comment: Per Nurse: Pt. still paces around. the unit hallways with a slow steady gait, but occasionally will slightly stager. Pt is unable to sit or sleep for long period, attention span is short ranging from 5-30minutes, needs redirection and encouragement to take his meds, but more coherent than the past days. He ate 50% of his meals, drank his ensure at lunch and had juice with his meds. He spoke to his son Jimmy this afternoon. Psych Progress: Patient reports feeling good today, sleep was fair, and appetite okay. Patient remorseful about physical aggression to staff last week. Happy excited to be going home. Reason for continuing inpatient treatment: Son to nut picker patient tomorrow morning MENTAL STATUS EXAMINATION General Appearance and Behavior: Age appropriate, good hygiene, wearing appropriate clothes, minimal eye contact. Cooperation: Cooperative Psychomotor Behavior:unremarkable and within normal limits Mood: Good Affect and affective range: congruent with mood Thought Process: Logical Thought Content: Within reality Speech: Normal rate and volume Intellectual Functioning: Average Suicidal Ideation: Denies Homicidal Ideation: Denies Impulse Control: Unmpaired Insight and Judgment: Improved insight and judgment Memory: Average Attention: intermittent divided attention Orientation: Alert, oriented with intermittent confusion Assessment and Plan - Psychiatric problem (1) Schizophrenia with prominent negative symptoms Current Visit: Yes Status: Acute (2) Selective mutism Current Visit: Yes Status: Acute Treatment Plan To be discharged tomorrow AM. Patient will be admitted for inpatient psychiatric evaluation, medication adjustment and close monitoring The patient's behavior, mood, sleep and appetite will be closely monitored. Patient will be enrolled in individual and group therapeutic sessions and encouraged to attend. Patient will be provided with a safe and structured environment. Patient's physical health needs will be addressed by the Hospitalist. Hospitalist Consulted Labs including CBC, CMP, Lipid profile and Hemoglobin A1C ordered Social Assessment will be completed and the Print Line Supervisor will work with patient and family to ensure a suitable and safe disposition Medication adjustment: Continue current meds. Usual Wellness Quaker/Preservation: - Start Trazodone 50 mg po QHS & 50 mg po QHS PRN between 10 PM & 2 AM for insomnia - Start [place]-3 for brain health, reduce impulsivity, and as adjunctive treatment for mood disorder, continue upon discharge given overall benefits. - Start B1 prophylaxis with 200 mg po for 5 days The patient agreed on the treatment plan, understood the risk, benefit, alternative treatment, potential consequence of no treatment, and gave informed consent. This is an acknowledgement statement that PEACE FLORES is a 58 year old M who r equires inpatient psychiatric admission for treatment which could reasonably be expected to improve the patient's condition for Estimated period of time patient will need to remain in the hospital: [1] Plan for post-hospital care: [ outpatient] Assessment and Plan - Patient Problems (1) Schizophrenia with prominent negative symptoms Current Visit: No Status: Acute (2) Selective mutism Current Visit: No Status: Acute Medications and Allergies Allergies Allergy/AdvReac Type Severity Reaction Status Date / Time haloperidol [From Haldol] Allergy Unknown Verified 08/04/19 14:27 Home Medications Medication Instructions Recorded Confirmed Last Taken Type Acetaminophen [Tylenol] 325 mg PO Q4HR PRN 08/04/19 08/12/19 Unknown History Amlodipine Besylate [Norvasc] 5 mg PO DAILY 08/04/19 08/12/19 Unknown History Benztropine [Cogentin] 1 tab PO DAILY 08/04/19 08/12/19 Unknown History Magnesium Hydroxide [Milk of 30 ml PO Q8H PRN 08/04/19 08/12/19 Unknown History Magnesia] diphenhydrAMINE [Benadryl CAP] 50 mg PO Q4HR PRN 08/04/19 08/12/19 Unknown History OXcarbazepine [Trileptal] 300 mg PO BID 08/12/19 08/12/19 Unknown History Prolixin 5 mg PO Q4H 08/12/19 08/12/19 Unknown History ZyPREXA 5 mg PO QAM 08/12/19 08/12/19 Unknown History ZyPREXA 15 mg PO QHS 08/12/19 08/12/[address] 1,000 mg PO QHS #30 08/26/19 Unknown Rx Divalproex [Kathleen Kitchen] 500 mg PO DAILY #30 tablet 08/26/19 Unknown Rx Divalproex [Kathleen Kitchen] 500 mg PO DAILY@1400 #30 tablet 08/26/19 Unknown Rx Melatonin [Melatonin 5MG TAB] 5 mg PO QHS #30 tablet 08/26/19 Unknown Rx VALPROIC ACID Liq [DepaKENE Liq] 500 mg PO DAILY #30 tab 08/26/19 Unknown Rx VALPROIC ACID Liq [DepaKENE Liq] 500 mg PO DAILY@1400 #30 tab 08/26/19 Unknown Rx clonazePAM [KlonoPIN] 1 mg PO TID #90 tablet 08/26/19 Unknown Rx risperiDONE [RisperDAL] 3 mg PO BID #60 tablet 08/26/19 Unknown Rx traZODone [Desyrel] 100 mg PO QHS #30 08/26/19 Unknown Rx Active Meds: Active Medications Acetaminophen (Tylenol) 650 mg PO Q6H PRN PRN Reason: Pain, Mild (1-3) Last Admin: 08/20/19 11:37 Dose: 650 mg Documented by: Benztropine Mesylate (Cogentin) 1 mg PO DAILY [facility] Last Admin: 08/26/19 10:35 Dose: 1 mg Documented by: Clonazepam (Klonopin) 1 mg PO TID [facility] Last Admin: 08/26/19 21:20 Dose: 1 mg Documented by: Diphenhydramine HCl (Benadryl) 50 mg IM Q6H PRN PRN Reason: agitation Last Admin: 08/22/19 22:02 Dose: 50 mg Documented by: Fish Oil (Fish Oil) 2,000 mg PO BID [facility] Last Admin: 08/26/19 21:20 Dose: 2,000 mg Documented by: Lorazepam (Ativan) 2 mg IM Q6H PRN PRN Reason: Agitation Last Admin: 08/21/19 12:26 Dose: 2 mg Documented by: Magnesium Hydroxide (Milk Of Magnesia) 30 ml PO Q8H PRN PRN Reason: Constipation Last Admin: 08/23/19 14:12 Dose: 30 ml Documented by: Melatonin (Melatonin) 5 mg PO QHS [facility] Last Admin: 08/26/19 21:24 Dose: 5 mg Documented by: Risperidone (Risperdal) 3 mg PO BID [facility] Last Admin: 08/26/19 21:19 Dose: 3 mg Documented by: Trazodone HCl (Desyrel) 100 mg PO QHS [facility] Last Admin: 08/26/19 21:20 Dose: 100 mg Documented by: Valproic Acid (Depakene Liq) 500 mg PO DAILY@1400 [facility] Last Admin: 08/26/19 13:44 Dose: 500 mg Documented by: Valproic Acid (Depakene Liq) 500 mg FEEDTUBE DAILY [facility] Valproic Acid (Depakene Liq) 1,000 mg PO QHS [facility] Last Admin: 08/26/19 22:00 Dose: 1,000 mg Documented by: Results - Results Labs/Vitals: Laboratory Last Values WBC 12.6 K/mm3 (4.5-11.0) H 08/25/19 05:53 RBC 4.21 M/mm3 (3.65-5.03) 08/25/19 05:53 Hgb 12.5 gm/dl (11.8-15.2) 08/25/19 05:53 Hct 37.0 % (35.5-45.6) 08/25/19 05:53 MCV 88 fl (84-94) 08/25/19 05:53 MCH 30 pg (28-32) 08/25/19 05:53 MCHC 34 % (32-34) 08/25/19 05:53 RDW 13.8 % (13.2-15.2) 08/25/19 05:53 Plt Count 204 K/mm3 (140-440) 08/25/19 05:53 Lymph % (Auto) 8.3 % (13.4-35.0) L 08/25/19 05:53 [place] % (Auto) 7.1 % (0.0-7.3) 08/25/19 05:53 Eos % (Auto) 0.4 % (0.0-4.3) 08/25/19 05:53 Baso % (Auto) 0.3 % (0.0-1.8) 08/25/19 05:53 Lymph # 1.1 K/mm3 (1.2-5.4) L 08/25/19 05:53 [place] # 0.9 K/mm3 (0.0-0.8) H 08/25/19 05:53 Eos # 0.0 K/mm3 (0.0-0.4) 08/25/19 05:53 Baso # 0.0 K/mm3 (0.0-0.1) 08/25/19 05:53 Seg Neutrophils % 83.9 % (40.0-70.0) H 08/25/19 05:53 Seg Neutrophils # 10.6 K/mm3 (1.8-7.7) H 08/25/19 05:53 Sodium 134 mmol/L (137-145) L 08/19/19 05:52 Potassium 3.6 mmol/L (3.6-5.0) 08/19/19 05:52 Chloride 95.4 mmol/L (98-107) L 08/19/19 05:52 Carbon Dioxide 25 mmol/L (22-30) 08/19/19 05:52 Anion Gap 17 mmol/L 08/19/19 05:52 BUN 18 mg/dL (9-20) 08/19/19 05:52 Creatinine 1.0 mg/dL (0.8-1.5) 08/19/19 05:52 Estimated GFR > 60 ml/min 08/19/19 05:52 BUN/Creatinine Ratio 18 % 08/19/19 05:52 Glucose 112 mg/dL (75-100) H 08/19/19 05:52 POC Glucose 150 (70-105) H 08/21/19 10:24 Hemoglobin A1c 5.0 % (4-6) 08/12/19 21:05 Calcium 8.5 mg/dL (8.4-10.2) 08/19/19 05:52 Total Bilirubin 0.90 mg/dL (0.1-1.2) 08/12/19 21:05 AST 39 units/L (5-40) 08/12/19 21:05 ALT 101 units/L (7-56) H 08/12/19 21:05 Alkaline Phosphatase 101 units/L (35-129) 08/12/19 21:05 Total Protein 5.7 g/dL (6.3-8.2) L 08/12/19 21:05 Albumin 3.0 g/dL (3.9-5) L 08/12/19 21:05 Albumin/Globulin Ratio 1.1 % 08/12/19 21:05 Triglycerides 123 mg/dL (2-149) 08/12/19 21:05 Cholesterol 178 mg/dL (50-199) 08/12/19 21:05 LDL Cholesterol Direct 111 mg/dL (50-130) 08/12/19 21:05 HDL Cholesterol 36 mg/dL (40-59) L 08/12/19 21:05 Cholesterol/HDL Ratio 4.94 % 08/12/19 21:05 TSH 2.460 mlU/mL (0.270-4.200) 08/12/19 21:05 Urine Color Yellow (Yellow) 08/25/19 Unknown Urine Turbidity Clear (Clear) 08/25/19 Unknown Urine pH 7.0 (5.0-7.0) 08/25/19 Unknown Ur Specific [place] 1.005 (1.003-1.030) 08/25/19 Unknown Urine Protein <15 mg/dl mg/dL (Negative) 08/25/19 Unknown Urine Glucose (UA) Neg mg/dL (Negative) 08/25/19 Unknown Urine Ketones Tr mg/dL (Negative) 08/25/19 Unknown Urine Blood Neg (Negative) 08/25/19 Unknown Urine Nitrite Neg (Negative) 08/25/19 Unknown Urine Bilirubin Neg (Negative) 08/25/19 Unknown Urine Urobilinogen < 2.0 mg/dL (<2.0) 08/25/19 Unknown Ur Leukocyte Esterase Sm (Negative) 08/25/19 Unknown Urine WBC (Auto) 6.0 /HPF (0.0-6.0) 08/25/19 Unknown Urine RBC (Auto) 1.0 /HPF (0.0-6.0) 08/25/19 Unknown Valproic Acid 52.2 ug/mL (50-100) 08/24/19 06:03 Last Vital Signs Temp 98.0 F 08/26/19 09:03 Pulse 86 08/26/19 18:57 Resp 18 08/26/19 09:03 BP 111/65 08/26/19 18:57 Pulse Ox 97 08/26/19 18:57
[2019-08-27] MEDS: clonazePAM 0.5 MG TAB PO SCH ×3 (08:19→21:34)
[2019-08-27] MEDS: BENZTROPINE 1 MG TAB PO SCH (09:50)
[2019-08-27] MEDS: risperiDONE 1 MG TAB PO SCH ×2 (09:50→21:36)
[2019-08-27] MEDS: OMEGA-3 FATTY ACIDS/FISH OIL 1 GRAM CAP PO SCH ×2 (09:50→21:33)
[2019-08-27] MEDS: VALPROIC ACID 250 MG/5 ML ORAL LIQD FEEDTUBE SCH (09:50)
[2019-08-27] MEDS: VALPROIC ACID 250 MG/5 ML ORAL LIQD PO SCH ×2 (14:11→21:31)
[2019-08-27] MEDS: MELATONIN 5 MG TAB PO SCH (21:35)
[2019-08-27] MEDS: traZODone 100 MG TAB PO SCH (21:35)
--- NOTE | 2019-08-28 07:02 | Progress Note ---
Subjective Date of service: 08/28/19 Principal diagnosis: Schizophrenia with prominent negative symptoms Subjective Comment: Per Nurse: Patient was calm through the evening. He stated he was afraid because he thinks no one wants him. Patient was reassured that his son cared enough to come from [place] to get him today. He would be reassured for awhile then would come to this chart writer stating he was afraid. Patient could not remember the entirety of our conversations for very long. Otherwise he had a calm evening with no issues. He was medication compliant. Will continue to monitor patient for safety. Psych Progress: Patient was up and awake this a.m. and excited about going home. Patient stated that he would love to shake my hand but because of the limon he would rather go home and have limon beer jokingly. Patient has continued to show significant psychological improvement. Reason for continuing inpatient treatment: To be discharged today this AM and picked up by son MENTAL STATUS EXAMINATION General Appearance and Behavior: Age appropriate, good hygiene, wearing appropriate clothes, minimal eye contact. Cooperation: Cooperative Psychomotor Behavior:unremarkable and within normal limits Mood: Good Affect and affective range: congruent with mood Thought Process: Logical Thought Content: Within reality Speech: Normal rate and volume Intellectual Functioning: Average Suicidal Ideation: Denies Homicidal Ideation: Denies Impulse Control: Unmpaired Insight and Judgment: Improved insight and judgment Memory: Average Attention: intermittent divided attention Orientation: Alert, oriented with intermittent confusion Assessment and Plan - Psychiatric problem (1) Schizophrenia with prominent negative symptoms Current Visit: Yes Status: Acute (2) Selective mutism Current Visit: Yes Status: Acute Treatment Plan To be discharged this AM and picked up by son. Patient will be admitted for inpatient psychiatric evaluation, medication adjustment and close monitoring The patient's behavior, mood, sleep and appetite will be closely monitored. Patient will be enrolled in individual and group therapeutic sessions and encouraged to attend. Patient will be provided with a safe and structured environment. Patient's physical health needs will be addressed by the Hospitalist. Hospitalist Consulted Labs including CBC, CMP, Lipid profile and Hemoglobin A1C ordered Social Assessment will be completed and the Tension Worker will work with patient and family to ensure a suitable and safe disposition Medication adjustment: Continue current meds. Usual Wellness Nondenominational/Preservation: - Start Trazodone 50 mg po QHS & 50 mg po QHS PRN between 10 PM & 2 AM for insomnia - Start [place]-3 for brain health, reduce impulsivity, and as adjunctive treatment for mood disorder, continue upon discharge given overall benefits. - Start B1 prophylaxis with 200 mg po for 5 days The patient agreed on the treatment plan, understood the risk, benefit, alternative treatment, potential consequence of no treatment, and gave informed consent. This is an acknowledgement statement that PEACE FLORES is a 58 year old M who requires inpatient psychiatric admission for treatment which could reasonably be expected to improve the patient's condition for Estimated period of time patient will need to remain in the hospital: [0] Plan for post-hospital care: [ outpatient] Assessment and Plan - Patient Problems (1) Schizophrenia with prominent negative symptoms Current Visit: No Status: Acute (2) Selective mutism Current Visit: No Status: Acute Medications and Allergies Allergies Allergy/AdvReac Type Severity Reaction Status Date / Time haloperidol [From Haldol] Allergy Unknown Verified 08/04/19 14:27 Home Medications Medication Instructions Recorded Confirmed Last Taken Type Acetaminophen [Tylenol] 325 mg PO Q4HR PRN 08/04/19 08/12/19 Unknown History Amlodipine Besylate [Norvasc] 5 mg PO DAILY 08/04/19 08/12/19 Unknown History Benztropine [Cogentin] 1 tab PO DAILY 08/04/19 08/12/19 Unknown History Magnesium Hydroxide [Milk of 30 ml PO Q8H PRN 08/04/19 08/12/19 Unknown History Magnesia] diphenhydrAMINE [Benadryl CAP] 50 mg PO Q4HR PRN 08/04/19 08/12/19 Unknown History OXcarbazepine [Trileptal] 300 mg PO BID 08/12/19 08/12/19 Unknown History Prolixin 5 mg PO Q4H 08/12/19 08/12/19 Unknown History ZyPREXA 5 mg PO QAM 08/12/19 08/12/19 Unknown History ZyPREXA 15 mg PO QHS 08/12/19 08/12/19 Unknown History Kathleen Kitchen 1,000 mg PO QHS #30 08/26/19 Unknown Rx Divalproex [Kathleen Kitchen] 500 mg PO DAILY #30 tablet 08/26/19 Unknown Rx Divalproex [Kathleen Kitchen] 500 mg PO DAILY@1400 #30 tablet 08/26/19 Unknown Rx Melatonin [Melatonin 5MG TAB] 5 mg PO QHS #30 tablet 08/26/19 Unknown Rx VALPROIC ACID Liq [DepaKENE Liq] 500 mg PO DAILY #30 tab 08/26/19 Unknown Rx VALPROIC ACID Liq [DepaKENE Liq] 500 mg PO DAILY@1400 #30 tab 08/26/19 Unknown Rx clonazePAM [KlonoPIN] 1 mg PO TID #90 tablet 08/26/19 Unknown Rx risperiDONE [RisperDAL] 3 mg PO BID #60 tablet 08/26/19 Unknown Rx traZODone [Desyrel] 100 mg PO QHS #30 08/26/19 Unknown Rx Active Meds: Active Medications Acetaminophen (Tylenol) 650 mg PO Q6H PRN PRN Reason: Pain, Mild (1-3) Last Admin: 08/20/19 11:37 Dose: 650 mg Documented by: Benztropine Mesylate (Cogentin) 1 mg PO DAILY [facility] Last Admin: 08/27/19 09:50 Dose: 1 mg Documented by: Clonazepam (Klonopin) 1 mg PO TID [facility] Last Admin: 08/27/19 21:34 Dose: 1 mg Documented by: Diphenhydramine HCl (Benadryl) 50 mg IM Q6H PRN PRN Reason: agitation Last Admin: 08/22/19 22:02 Dose: 50 mg Documented by: Fish Oil (Fish Oil) 2,000 mg PO BID [facility] Last Admin: 08/27/19 21:33 Dose: 2,000 mg Documented by: Lorazepam (Ativan) 2 mg IM Q6H PRN PRN Reason: Agitation Last Admin: 08/21/19 12:26 Dose: 2 mg Documented by: Magnesium Hydroxide (Milk Of Magnesia) 30 ml PO Q8H PRN PRN Reason: Constipation Last Admin: 08/23/19 14:12 Dose: 30 ml Documented by: Melatonin (Melatonin) 5 mg PO QHS [facility] Last Admin: 08/27/19 21:35 Dose: 5 mg Documented by: Risperidone (Risperdal) 3 mg PO BID [facility] Last Admin: 08/27/19 21:36 Dose: 3 mg Documented by: Trazodone HCl (Desyrel) 100 mg PO QHS [facility] Last Admin: 08/27/19 21:35 Dose: 100 mg Documented by: Valproic Acid (Depakene Liq) 500 mg PO DAILY@1400 [facility] Last Admin: 08/27/19 14:11 Dose: 500 mg Documented by: Valproic Acid (Depakene Liq) 500 mg FEEDTUBE DAILY [facility] Last Admin: 08/27/19 09:50 Dose: 500 mg Documented by: Valproic Acid (Depakene Liq) 1,000 mg PO QHS [facility] Last Admin: 08/27/19 21:31 Dose: 1,000 mg Documented by: Results - Results Labs/Vitals: Laboratory Last Values WBC 12.6 K/mm3 (4.5-11.0) H 08/25/19 05:53 RBC 4.21 M/mm3 (3.65-5.03) 08/25/19 05:53 Hgb 12.5 gm/dl (11.8-15.2) 08/25/19 05:53 Hct 37.0 % (35.5-45.6) 08/25/19 05:53 MCV 88 fl (84-94) 08/25/19 05:53 MCH 30 pg (28-32) 08/25/19 05:53 MCHC 34 % (32-34) 08/25/19 05:53 RDW 13.8 % (13.2-15.2) 08/25/19 05:53 Plt Count 204 K/mm3 (140-440) 08/25/19 05:53 Lymph % (Auto) 8.3 % (13.4-35.0) L 08/25/19 05:53 [place] % (Auto) 7.1 % (0.0-7.3) 08/25/19 05:53 Eos % (Auto) 0.4 % (0.0-4.3) 08/25/19 05:53 Baso % (Auto) 0.3 % (0.0-1.8) 08/25/19 05:53 Lymph # 1.1 K/mm3 (1.2-5.4) L 08/25/19 05:53 [place] # 0.9 K/mm3 (0.0-0.8) H 08/25/19 05:53 Eos # 0.0 K/mm3 (0.0-0.4) 08/25/19 05:53 Baso # 0.0 K/mm3 (0.0-0.1) 08/25/19 05:53 Seg Neutrophils % 83.9 % (40.0-70.0) H 08/25/19 05:53 Seg Neutrophils # 10.6 K/mm3 (1.8-7.7) H 08/25/19 05:53 Sodium 134 mmol/L (137-145) L 08/19/19 05:52 Potassium 3.6 mmol/L (3.6-5.0) 08/19/19 05:52 Chloride 95.4 mmol/L (98-107) L 08/19/19 05:52 Carbon Dioxide 25 mmol/L (22-30) 08/19/19 05:52 Anion Gap 17 mmol/L 08/19/19 05:52 BUN 18 mg/dL (9-20) 08/19/19 05:52 Creatinine 1.0 mg/dL (0.8-1.5) 08/19/19 05:52 Estimated GFR > 60 ml/min 08/19/19 05:52 BUN/Creatinine Ratio 18 % 08/19/19 05:52 Glucose 112 mg/dL (75-100) H 08/19/19 05:52 POC Glucose 150 (70-105) H 08/21/19 10:24 Hemoglobin A1c 5.0 % (4-6) 08/12/19 21:05 Calcium 8.5 mg/dL (8.4-10.2) 08/19/19 05:52 Total Bilirubin 0.90 mg/dL (0.1-1.2) 08/12/19 21:05 AST 39 units/L (5-40) 08/12/19 21:05 ALT 101 units/L (7-56) H 08/12/19 21:05 Alkaline Phosphatase 101 units/L (35-129) 08/12/19 21:05 Total Protein 5.7 g/dL (6.3-8.2) L 08/12/19 21:05 Albumin 3.0 g/dL (3.9-5) L 08/12/19 21:05 Albumin/Globulin Ratio 1.1 % 08/12/19 21:05 Triglycerides 123 mg/dL (2-149) 08/12/19 21:05 Cholesterol 178 mg/dL (50-199) 08/12/19 21:05 LDL Cholesterol Direct 111 mg/dL (50-130) 08/12/19 21:05 HDL Cholesterol 36 mg/dL (40-59) L 08/12/19 21:05 Cholesterol/HDL Ratio 4.94 % 08/12/19 21:05 TSH 2.460 mlU/mL (0.270-4.200) 08/12/19 21:05 Urine Color Yellow (Yellow) 08/25/19 Unknown Urine Turbidity Clear (Clear) 08/25/19 Unknown Urine pH 7.0 (5.0-7.0) 08/25/19 Unknown Ur Specific [place] 1.005 (1.003-1.030) 08/25/19 Unknown Urine Protein <15 mg/dl mg/dL (Negative) 08/25/19 Unknown Urine Glucose (UA) Neg mg/dL (Negative) 08/25/19 Unknown Urine Ketones Tr mg/dL (Negative) 08/25/19 Unknown Urine Blood Neg (Negative) 08/25/19 Unknown Urine Nitrite Neg (Negative) 08/25/19 Unknown Urine Bilirubin Neg (Negative) 08/25/19 Unknown Urine Urobilinogen < 2.0 mg/dL (<2.0) 08/25/19 Unknown Ur Leukocyte Esterase Sm (Negative) 08/25/19 Unknown Urine WBC (Auto) 6.0 /HPF (0.0-6.0) 08/25/19 Unknown Urine RBC (Auto) 1.0 /HPF (0.0-6.0) 08/25/19 Unknown Valproic Acid 52.2 ug/mL (50-100) 08/24/19 06:03 Last Vital Signs Temp 97.4 F L 08/28/19 02:20 Pulse 93 H 08/28/19 02:20 Resp 18 08/27/19 08:36 BP 97/60 08/28/19 02:20 Pulse Ox 97 08/27/19 19:26
[2019-08-28] MEDS: clonazePAM 0.5 MG TAB PO SCH (08:12)
[2019-08-28 09:16] VITALS: BP 113/78
[2019-08-28] MEDS: VALPROIC ACID 250 MG/5 ML ORAL LIQD FEEDTUBE SCH (09:47)
[2019-08-28] MEDS: BENZTROPINE 1 MG TAB PO SCH (09:47)
[2019-08-28] MEDS: risperiDONE 1 MG TAB PO SCH (09:47)
[2019-08-28] MEDS: OMEGA-3 FATTY ACIDS/FISH OIL 1 GRAM CAP PO SCH (09:50)
== END 2019-08-28 11:14 | disposition home or self-care (01) | DRG 885 ==
LOC: 3A 16:37 → UNDOADMIN 16:37 → 5A 17:40
PROVIDERS: ADMIT Psychiatry & Neurology Psychiatry; ATTEND Psychiatry & Neurology Psychiatry
DX: F25.9 Schizoaffective disorder, unspecified (principal); F94.0 Selective mutism; I10 Essential (primary) hypertension
CPT/HCPCS: 36415; 80048; 80053; 80061; 80164; 81001; 82962; 83036; 84443; 85025; 85027; G0378; J1200; J2060; J3486